=== PATIENT | female | born 1930 | race Caucasian/White ===

== ENCOUNTER → 2016-09-12 | Outpatient (CLI) | payer OTHER ==
[~2016-09-12] MED LIST: BNC20 PO; CLBCRM30 EXT; MULT-614 PO; NAPR1TAB22 PO; OMG3 PO; PRAV20TA PO; SULF-183 PO; TPRSR/25 PO; TRAM-10 PO
[2016-09-12 16:38] LABS: BASO % 0.2 %; BASO ABS # 0.02 K/uL (0-0.2); COMPLETE YES; EOS % 4.5 %; HEMATOCRIT 43.6 % (37-47); IG% 0.3 %; LYMPH % 19.3 %; LYMPH ABS # 1.88 K/uL (1.2-3.4); MEAN CELL VOLUME 91.6 fL (80-100); MEAN CORPUSCULAR HEMOGLOBIN 30.9 pg (25-34); MEAN CORPUSCULAR HGB CONC 33.7 g/dl (32-36); MONO % 8.3 %; NEUT % 67.4 %; PLATELET COUNT 192 K/uL (130-400); RED BLOOD COUNT 4.76 M/uL (4.2-5.4); WHITE BLOOD COUNT 9.72 K/uL (4.8-10.8)
[2016-09-12 17:14] LABS: BLOOD UREA NITROGEN 35 mg/dl (7-18); BUN/CREATININE RATIO 24.9 (10-20); CALCIUM 8.9 mg/dl (8.5-10.1); CARBON DIOXIDE 24 mmol/L (21-32); CHLORIDE 108 mmol/L (98-107); GLUCOSE 95 mg/dl (70-99); POTASSIUM 4.4 mmol/L (3.5-5.1); SODIUM 141 mmol/L (136-145)
== END | disposition home or self-care (01) ==
LOC: C.LAB1850 15:03
PROVIDERS: ATTEND Nurse Practitioner Adult Health
DX: R10.813 Right lower quadrant abdominal tenderness (principal)

== ENCOUNTER → 2016-09-18 | Outpatient (CLI) | payer OTHER ==
--- NOTE | 2016-09-18 14:12 | DIAGNOSTIC IMAGING REPORT ---
ABDOMEN AND PELVIS CT WITH ORAL CONTRAST CT DOSE: 872.28 mGycm HISTORY: R10.819 Abdominal [id number] Abdominal right lower quadrant pain. TECHNIQUE: Multiaxial CT images of the abdomen and pelvis were performed following the use of oral contrast. COMPARISON STUDY: Abdomen and pelvis CT 12/02/2014. FINDINGS: Stable 6 mm nodule within the left lower lobe. This demonstrates near 2 year stability. No pneumoperitoneum. No pneumatosis. 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 These result in significant metallic artifact with near nondiagnostic evaluation of the deep pelvic structures including the bladder and uterus. Severe degenerative disc disease throughout the lower thoracic and lumbar spine. There is a 3 cm hypodense lesion within the right hepatic lobe. This is slightly increased in size in the prior study. This is indeterminate on this noncontrast study. The unenhanced gallbladder, pancreas, and adrenal glands are unremarkable. A few calcified splenic granulomas. Bilateral nephrolithiasis. No hydronephrosis. There are few cortical calcifications within the right kidney. There are 2 stable hyperdense lesions within the upper pole of the left kidney with the largest measuring 1 cm. These are also included characterize but favor hyperdense cysts. No retroperitoneal lymphadenopathy. No bowel wall thickening or obstruction. Normal appendix. Colonic diverticulosis. IMPRESSION: 1. No bowel wall thickening or obstruction. 2. Normal appendix. 3. Colonic diverticulosis. 4. Bilateral nephrolithiasis. No hydronephrosis. 5. Stable 6 mm nodule within the left lower lobe. This demonstrates near 2 year stability. An additional [address] follow up can performed to ensure 2 year stability. 6. Additional findings as described above. Electronically signed by: Gus Elmore M.D. 09/18/2016 2:10 PM Dictated Date/Time: 09/18/2016 1:55 PM
== END | disposition home or self-care (01) ==
LOC: C.CTS 11:17
PROVIDERS: ATTEND Nurse Practitioner Adult Health
DX: R10.813 Right lower quadrant abdominal tenderness (principal); N18.9 Chronic kidney disease, unspecified; K57.30 Diverticulosis of large intestine without perforation or abscess without bleeding; N20.0 Calculus of kidney; R91.1 Solitary pulmonary nodule

== ENCOUNTER → 2017-03-28 | Outpatient (CLI) | payer OTHER ==
[2017-03-28 14:42] LABS: BASO % 0.2 %; BASO ABS # 0.02 K/uL (0-0.2); COMPLETE YES; EOS % 5.1 %; HEMATOCRIT 43.2 % (37-47); IG% 0.3 %; MEAN CELL VOLUME 92.3 fL (80-100); MEAN CORPUSCULAR HEMOGLOBIN 29.7 pg (25-34); MEAN CORPUSCULAR HGB CONC 32.2 g/dl (32-36); MEAN PLATELET VOLUME 9.8 fL (7.4-10.4); MONO % 7.4 %; PLATELET COUNT 212 K/uL (130-400); RED BLOOD COUNT 4.68 M/uL (4.2-5.4); WHITE BLOOD COUNT 9.13 K/uL (4.8-10.8)
[2017-03-28 15:35] LABS: ALT/SGPT 16 U/L (12-78); AST/SGOT 17 U/L (15-37); BLOOD UREA NITROGEN 39 mg/dl (7-18); BUN/CREATININE RATIO 30.2 (10-20); CALCIUM 8.7 mg/dl (8.5-10.1); CARBON DIOXIDE 29 mmol/L (21-32); CHLORIDE 106 mmol/L (98-107); CHOLESTEROL 177 mg/dl (0-200); GLUCOSE 92 mg/dl (70-99); POTASSIUM 4.4 mmol/L (3.5-5.1); SODIUM 140 mmol/L (136-145); TRIGLYCERIDES 186 mg/dl (0-150); VERY LOW DENSITY LIPOPROT CALC 37 mg/dl
[2017-03-28 15:47] LABS: ALB/GLOB RATIO 0.8 (0.9-2); ALKALINE PHOSPHATASE 94 U/L (45-117); CHOLESTEROL/HDL RATIO 4.3; HDL CHOLESTEROL 41 mg/dl; LDL CHOLESTEROL CALCULATED 99 mg/dl
[2017-03-29 07:20] LABS: ESTIMATED AVERAGE GLUCOSE 123 mg/dl; HA1C FLAG Normal (Normal)
--- NOTE | 2017-04-05 14:05 | CODING QUERY MEDICAL NECESSITY ---
CQSUPPORTING DIAGNOSIS NEEDED A supporting diagnosis is required for the test/procedure performed on this patient in order for us to be reimbursed by the patient's insurance. Please provide a supporting diagnosis for the following test/procedure listed below next to the test name along with your signature. *If there is no additional diagnosis for this patient that would support the following test/procedure please document that below next to the test/procedure. Test(s)/Procedure(s) that require a supporting diagnosis: DOS 03/28/17 VITAMIN D TEST Provider Signature: Date: Thank you Kenzie Means Health Information Management Once completed, please kindly fax back to [phone] For questions please call [phone]
== END | disposition home or self-care (01) ==
LOC: C.LAB1850 13:48
PROVIDERS: ATTEND Internal Medicine
DX: N18.9 Chronic kidney disease, unspecified (principal); E78.5 Hyperlipidemia, unspecified; R73.09 Other abnormal glucose

== ENCOUNTER → 2017-04-12 | Outpatient (CLI) | payer OTHER ==
--- NOTE | 2017-04-12 12:32 | DIAGNOSTIC IMAGING REPORT ---
(CHEST) THORAX WITHOUT CLINICAL HISTORY: 86 years-old Female presenting with pulmonary nodule. TECHNIQUE: Multidetector CT imaging of the chest was performed without the use of intravenous contrast. IV contrast: None. A dose lowering technique was used consistent with the principles of ALARA (as low as reasonably achievable). COMPARISON: CT of the abdomen and pelvis from 09/18/2016. CT DOSE (mGy.cm): The estimated cumulative dose is 806.95 mGy.cm. FINDINGS: [employer] topogram: Unremarkable. On soft tissue windows, normal thyroid and thoracic inlet. Lobular lesion in the anterior mediastinum with a density above that of simple fluid. No surrounding infiltration. Apart from this nodule, no evidence of axillary, supraclavicular, or mediastinal lymphadenopathy. Evaluation of the neal is limited due to lack of intravenous contrast. Atherosclerosis of the aorta. Normal heart size. Aortic valve and coronary artery calcification. No pericardial or pleural effusion. Splenic parenchymal calcifications suggest prior granulomatous infection. Few calcified lymph nodes may be present along the para esophageal region versus phleboliths. On lung windows, minimal groundglass opacity in the paramediastinal right upper lobe (series 4 image 73). Minimal reticulation at the lung bases, nonspecific and possibly atelectasis versus postinfectious/postinflammatory change. Solid 5 mm pulmonary nodule at the right lung base is new from prior (series 4 image 185). Solid 3 mm nodule at the left apex (series 4 image 38). Mosaic attenuation in the lingula could suggest small airways disease. Solid subpleural 2 mm nodule in the lingula (series 4 image 138). Solid 8 mm nodule at the left lung base, previously 6 mm (series 4 image 181). Solid 3 mm nodule at the left lung base (series 4 image 187), increased in size. Old calcified granuloma also noted at the left lung base. Airways patent. On bone windows, degenerative changes of the spine. Degenerative changes of the left glenohumeral joint with large loose bodies. IMPRESSION: 1. Multiple bilateral solid pulmonary nodules measuring up to 8 mm. The previously identified solid nodules have slightly increased in size. These are indeterminate. Included in the differential are infectious/inflammatory nodules especially given the presence of subpleural reticulation and minimal focal groundglass opacity in the right upper lobe. Follow-up per Shravan Society 2017 recommendations below to establish stability or resolution. 2. Low-density lesion in the anterior mediastinum not included within the [id number] on prior exam. This appears lower in density than expected for a lymph node. Differential considerations other than a lymph node include a thymic cyst or thymic neoplasm. This can be followed on subsequent exams. Please refer to below summary of Fleischner Society 2017 recommendations for follow-up of incidental CT nodules (H Gilda et al. Guidelines for management of incidental pulmonary nodules detected on CT images: From the Fleischner Society 2017. Radiology 2017; 284: 228-243.) SOLID NODULES Single nodule; size <6 mm * Low risk patients: No routine follow-up * High risk patients: Optional CT at 12 months Single nodule; size 6-8 mm * Low risk patients: CT at 6-12 months, then consider CT at 18-24 months * High risk patients: CT at 6-12 months, then at 18-24 months Single nodule; size >8 mm * Either low or high risk patients: Considered CT at 3 months, PET/CT, or tissue sampling Multiple nodules; size <6 mm * Low risk patients: No routine follow up * High risk patients: Optional CT at 12 months Multiple nodules; size 6-8 mm * Low risk patients: CT at 3-6 months, then consider CT at 18-24 months * High risk patients: CT at 3-6 months, then at 18-24 months Multiple nodules; size >8 mm * Low risk patients: CT at 3-6 months, then consider at 18-24 months * High risk patients: CT at 3-6 months, then at 18-24 months Note: These guidelines apply to incidental nodules. These guidelines did not apply to patients younger than 35 years, immunocompromised patients, or patients with cancer. * Low risk patients: Minimal or absent history of smoking and/or other known risk factors * High risk patients: History of smoking, exposure to other carcinogens, emphysema, fibrosis, upper lobe location, family history of lung cancer, etc. * If a nodule up to 8 mm is partly solid or is ground glass further follow-up is required after 24 months to exclude possible slow growing adenocarcinoma SUBSOLID NODULES Single ground-glass nodule * Nodule size < 6 mm: No routine follow-up * Nodule size > or = 6 mm: CT at 6-12 months to confirm persistence, then CT every 2 years until 5 years Single part-solid nodule * Nodule size < 6 mm: No routine follow-up * Nodules size > or = 6 mm: CT at 3-6 months to confirm persistence. If unchanged and solid component remains < 6 mm, annual CT should be performed for 5 years Multiple nodules * Nodule size < 6 mm: CT at 3-6 months. If stable, consider CT at 2 and 4 years. * Nodules size > or = 6 mm: CT at 3-6 months. Subsequent management based on the most suspicious nodule(s) Electronically signed by: Henry Bernal M.D. 04/12/2017 12:30 PM Dictated Date/Time: 04/12/2017 12:21 PM
== END | disposition home or self-care (01) ==
LOC: C.CTS 11:55
PROVIDERS: ATTEND Internal Medicine
DX: R91.1 Solitary pulmonary nodule (principal); R91.8 Other nonspecific abnormal finding of lung field

== ENCOUNTER → 2017-07-05 | Outpatient (CLI) | payer OTHER ==
[~2017-07-05] MED LIST changes: +CHOL100027 PO; +METO25TA3 PO; +POTA99TA PO; +SERT50TA PO; +TAMS0.4C38 PO
[2017-07-05 16:43] LABS: HEMATOCRIT 35.5 % (37-47); MEAN CELL VOLUME 83.9 fL (80-100); MEAN CORPUSCULAR HEMOGLOBIN 28.4 pg (25-34); MEAN CORPUSCULAR HGB CONC 33.8 g/dl (32-36); MEAN PLATELET VOLUME 10.4 fL (7.4-10.4); PLATELET COUNT 272 K/uL (130-400); RED BLOOD COUNT 4.23 M/uL (4.2-5.4); WHITE BLOOD COUNT 9.23 K/uL (4.8-10.8)
[2017-07-05 17:06] LABS: BASO % 0.1 %; BASO ABS # 0.01 K/uL (0-0.2); COMPLETE YES; IG% 1.1 %; LYMPH % 17.4 %; LYMPH ABS # 1.61 K/uL (1.2-3.4); MONO % 12.7 %; NEUT % 65.7 %
[2017-07-05 18:17] LABS: ALKALINE PHOSPHATASE 90 U/L (45-117); ALT/SGPT 22 U/L (12-78); AST/SGOT 19 U/L (15-37); BLOOD UREA NITROGEN 134 mg/dl (7-18); CALCIUM 8.7 mg/dl (8.5-10.1); CARBON DIOXIDE 14 mmol/L (21-32); CHLORIDE 108 mmol/L (98-107); GLUCOSE 84 mg/dl (70-99); POTASSIUM 5.1 mmol/L (3.5-5.1); SODIUM 135 mmol/L (136-145); THYROID STIMULATING HORMONE 0.754 uIu/ml (0.300-4.500); TOTAL IRON BINDING CAPACITY 220 mcg/dl (250-450)
[2017-07-05 18:24] LABS: BUN/CREATININE RATIO 26.7 (10-20); CREATININE 5.11 mg/dl (0.60-1.20)
[2017-07-05 18:25] LABS: ALB/GLOB RATIO 0.5 (0.9-2)
== END | disposition home or self-care (01) ==
LOC: C.LAB1850 14:33
PROVIDERS: ATTEND Physician Assistant
DX: G47.10 Hypersomnia, unspecified (principal)

== ENCOUNTER 2017-07-06 01:45 | Inpatient (IN) | payer OTHER ==
[~2017-07-06] VITALS: Ht 149.9 cm; Wt 80.5 kg
[2017-07-06] VITALS (21 sets, daily range): BP systolic 75–142; BP diastolic 36–58; PULSE 67–109; TEMP 36.3–36.8; O2SAT 92–97; Ht 149.9 cm; Wt 80.5 kg
[~2017-07-06 01:45] MED LIST changes: -CHOL100027 PO; -METO25TA3 PO; -POTA99TA PO; -SERT50TA PO; -TAMS0.4C38 PO
[2017-07-06] MEDS ORDERED: METO25TA3 PO (03:10)
[2017-07-06] MEDS ORDERED: POTA99TA PO (03:11)
[2017-07-06] MEDS ORDERED: TAMS0.4C38 PO (03:11)
[2017-07-06] MEDS ORDERED: SERT50TA PO (03:11)
[2017-07-06 03:12] LABS: BASO % 0.2 %; BASO ABS # 0.02 K/uL (0-0.2); COMPLETE YES; EOS % 1.8 %; HEMATOCRIT 35.8 % (37-47); IG% 1.2 %; LYMPH % 11.9 %; LYMPH ABS # 1.13 K/uL (1.2-3.4); MEAN CORPUSCULAR HEMOGLOBIN 28.2 pg (25-34); MEAN CORPUSCULAR HGB CONC 33.5 g/dl (32-36); MEAN PLATELET VOLUME 9.7 fL (7.4-10.4); MONO % 7.3 %; NEUT % 77.6 %; PLATELET COUNT 256 K/uL (130-400); RED BLOOD COUNT 4.26 M/uL (4.2-5.4); WHITE BLOOD COUNT 9.48 K/uL (4.8-10.8)
[2017-07-06] MEDS ORDERED: CHOL100027 PO (03:12)
--- NOTE | 2017-07-06 03:20 | EMERGENCY ROOM VISIT NOTE ---
History Report prepared by Whitney: Nuzhat Snow Under the Supervision of: Dr. Martita Villalpando D.O. First contact with patient: 02:08 Chief Complaint: REFERRED BY DOCTOR Stated Complaint: REFERRED BY DOCTOR History of Present Illness The patient is an 87 year old female who presents to the Emergency Room complains of an episode of abnormal labs starting this evening. The patient has had increased drowsiness and weakness since . She states that she went and got lab work done tonight that showed she has abnormal kidney function. She was called at home about the results. Source of History: patient Onset: this evening Position: other (global) Quality: other (global) Timing: other (episode) Associated Symptoms: + weakness Note: The patient complains of drowsiness. Review of Systems See HPI for pertinent positives & negatives. A total of 10 systems reviewed and were otherwise negative. Past Medical & Surgical Medical Problems: (1) Altered mental status (2) ARF (acute renal failure) (3) HTN (hypertension) Surgical Problems: (1) History of hip replacement (2) History of knee replacement Family History Diabetes mellitus Heart disease Hypertension Social History Smoking Status: Former Smoker Alcohol Use: none Drug Use: none Housing Status: lives with family Occupation Status: retired Current/Historical Medications Scheduled Cholecalciferol (Vitamin D 1000 Unit), 1,000 INTER.UNIT PO DAILY Metoprolol Succ (Toprol Xl) (Toprol-Xl), 50 MG PO QAM Metoprolol Succinate (Metoprolol Succinate ER), 25 MG PO QPM Multiple Vitamins W/ Minerals (Centrum Silver Ultra Wome), 1 TAB PO QAM Potassium (Potassium), 99 MG PO DAILY Pravastatin (Pravachol ), 20 MG PO HS Sertraline (Zoloft), 50 MG PO DAILY Tamsulosin Hcl (Flomax), 0.4 MG PO DAILY Tramadol (Ultram), 100 MG PO BID Allergies Coded Allergies: Solifenacin (Verified Allergy, Intermediate, HIVES, 07/06/17) Codeine (Verified Adverse Reaction, Intermediate, DIZZINESS, 07/06/17) Physical Exam Vital Signs Date Time Temp Pulse Resp B/P (MAP) Pulse Ox O2 Delivery O2 Flow Rate FiO2 07/06/17 03:30 93 18 120/76 98 Room Air 07/06/17 01:48 36.3 91 20 107/70 97 Room Air Physical Exam HEENT: Head - normocephalic and atraumatic Pupils are pinpoint. Extraocular eye muscles are intact, and sclera are anicteric. Nose - moist nasal mucosa without discharge. Mouth - moist buccal mucosa. Oropharynx is nonerythematous and there is no tonsillar exudate or edema noted. Neck: Supple; no JVD, nuchal rigidity, cervical lymphadenopathy, or auscultated bruits. Heart: Regular rate and rhythm. There is a normal S1 and S2 with no murmurs, clicks, or gallops appreciated. Lungs: Clear to auscultation bilaterally with no wheezes, rales, or rhonchi. Abdomen: Soft, completely nontender, nondistended, with good bowel sounds. There are no palpable pulsatile masses or hepatosplenomegaly. There is no guarding, rigidity, or rebound noted. Extremities: No evidence of cyanosis, clubbing, or edema. There are easily palpable peripheral pulses. Skin: warm and dry with good turgor and no rashes. Neuro: The patient seems confused with questioning. She will follow commands. Muscle strength is 5/5 in all 4 extremities. Medical Decision & Procedures Laboratory Results 07/06/17 03:00 Red Blood Count 4.26, Mean Corpuscular Volume 84.0, Mean Corpuscular Hemoglobin 28.2, Mean Corpuscular Hemoglobin Concent 33.5, Mean Platelet Volume 9.7, Neutrophils (%) (Auto) 77.6, Lymphocytes (%) (Auto) 11.9, Monocytes (%) (Auto) 7.3, Eosinophils (%) (Auto) 1.8, Basophils (%) (Auto) 0.2, Neutrophils # (Auto) 7.36, Lymphocytes # (Auto) 1.13, Monocytes # (Auto) 0.69, Eosinophils # (Auto) 0.17, Basophils # (Auto) 0.02 07/06/17 03:00 Test 07/06/17 03:00 White Blood Count 9.48 K/uL (4.8-10.8) Red Blood Count 4.26 M/uL (4.2-5.4) Hemoglobin 12.0 g/dL (12.0-16.0) Hematocrit 35.8 % (37-47) Mean Corpuscular Volume 84.0 fL (80-100) Mean Corpuscular Hemoglobin 28.2 pg (25-34) Mean Corpuscular Hemoglobin Concent 33.5 g/dl (32-36) Platelet Count 256 K/uL (130-400) Mean Platelet Volume 9.7 fL (7.4-10.4) Neutrophils (%) (Auto) 77.6 % Lymphocytes (%) (Auto) 11.9 % Monocytes (%) (Auto) 7.3 % Eosinophils (%) (Auto) 1.8 % Basophils (%) (Auto) 0.2 % Neutrophils # (Auto) 7.36 K/uL (1.4-6.5) Lymphocytes # (Auto) 1.13 K/uL (1.2-3.4) Monocytes # (Auto) 0.69 K/uL (0.11-0.59) Eosinophils # (Auto) 0.17 K/uL (0-0.5) Basophils # (Auto) 0.02 K/uL (0-0.2) RDW Standard Deviation 47.5 fL (36.4-46.3) RDW Coefficient of Variation 15.4 % (11.5-14.5) Immature Granulocyte % (Auto) 1.2 % Immature Granulocyte # (Auto) 0.11 K/uL (0.00-0.02) Prothrombin Time 10.8 SECONDS (9.0-12.0) Prothromb Time International Ratio 1.0 (0.9-1.1) Activated Partial Thromboplast Time 31.3 SECONDS (21.0-31.0) Partial Thromboplastin Ratio 1.2 Anion Gap 9.0 mmol/L (3-11) Estimated GFR () 7.8 Estimated GFR (Non- 6.8 BUN/Creatinine Ratio 26.0 (10-20) Calcium Level 8.4 mg/dl (8.5-10.1) Total Bilirubin 0.6 mg/dl (0.2-1) Direct Bilirubin < 0.1 mg/dl (0-0.2) Aspartate Amino Transf (AST/SGOT) 22 U/L (15-37) Alanine Aminotransferase (ALT/SGPT) 20 U/L (12-78) Alkaline Phosphatase 95 U/L (45-117) Total Creatine Kinase 171 U/L (26-192) Creatine Kinase MB 10.4 ng/ml (0.5-3.6) Creatine Kinase MB Ratio 6.1 (0-3.0) Troponin I < 0.015 ng/ml (0-0.045) Total Protein 8.4 gm/dl (6.4-8.2) Albumin 2.8 gm/dl (3.4-5.0) Thyroid Stimulating Hormone (TSH) 0.943 uIu/ml (0.300-4.500) Laboratory results per my review. Procedure 0406: Ordered Ativan Inj 0.5 mg IV. ECG Indication: weakness Rate (beats per minute): 67 Rhythm: normal sinus Findings: no acute ischemic change, other (significant baseline artifact) ED Course 0208: Past medical records reviewed. The patient was evaluated in room B7. A complete history and physical exam was performed. An IV lock was initiated and labs are drones above. The patient was ordered to have a CT scan of the brain because of altered mental status. 0315: Discussed the patient's case with Dr. Farrar. The patient will be evaluated for further management. 0405: The patient could not lie still in CT. Medical Decision The patient is an 87 year old female who presents to the Emergency Room complains of an episode of abnormal labs starting this evening. Differential diagnoses include acute kidney injury, dehydration, acute delirium , intracranial process, CVA. LABS: White count 9.2 Stable H&H BUN 134 Creatinine 5.1 Glucose 84 LFTS normal Normal white count Stable H&H Creatine 5.3 Potassium 6.3 BUN 139 Glucose 99 TSH normal Troponin is negative An 87-year-old female patient who lives with her son. She had routine blood work drawn at her PCP yesterday. The family was contacted this evening that she had elevated creatinine. Around the same time, the son noted that the patient seemed to be increasingly confused and delirious. The patient's creatinine is greater than 5. She is also noted to be hyperkalemic at this time. She did seem significantly confused. I ordered a CT scan of the brain but she was unable to lie flat for this. Medication Reconcilliation Current Medication List: was personally reviewed by me Blood Pressure Screening Patient's blood pressure: Normal blood pressure Will be further monitored by hospitalist. Consults Time Called: [phone] Consulting Physician: Dr. Farrar Returned Call: [phone] Discussed the patient's case with Dr. Farrar. The patient will be evaluated for further management. Impression Primary Impression: Acute renal failure Additional Impressions: Hyperkalemia Delirium Scribe Attestation The scribe's documentation has been prepared under my direction and personally reviewed by me in its entirety. I confirm that the note above accurately reflects all work, treatment, procedures, and medical decision making performed by me. Departure Information Dispostion Being Evaluated By Hospitalist Referrals Pro,Richar Tmaayo M.D. (PCP) Patient Instructions [facility] Problem Qualifiers Primary Impression: Acute renal failure Acute renal failure type: unspecified Qualified Codes: N17.9 - Acute kidney failure, unspecified
[2017-07-06 03:23] LABS: PARTIAL THROMBOPLASTIN RATIO 1.2; PROTHROMBIN TIME (PATIENT) 10.8 SECONDS (9.0-12.0)
[2017-07-06] MEDS ORDERED: POLYETHYLENE (MIRALAX) 17 GM PACK PO PRN (03:45)
[2017-07-06] MEDS ORDERED: ALUMINUM/MAGNESIUM/SIMETH (MAALOX MAX) 30 ML UDC PO PRN (03:45)
[2017-07-06] MEDS ORDERED: ACETAMINOPHEN 325 MG TAB PO PRN (03:45)
[2017-07-06] MEDS ORDERED: MAGNESIUM HYDROXIDE SUSP 30 ML UDC PO PRN (03:45)
[2017-07-06 03:54] LABS: ALKALINE PHOSPHATASE 95 U/L (45-117); ALT/SGPT 20 U/L (12-78); AST/SGOT 22 U/L (15-37); BLOOD UREA NITROGEN 139 mg/dl (7-18); CALCIUM 8.4 mg/dl (8.5-10.1); CARBON DIOXIDE 13 mmol/L (21-32); CHLORIDE 107 mmol/L (98-107); CKMB/CK RATIO 6.1 (0-3.0); CREATININE 5.35 mg/dl (0.60-1.20); GLUCOSE 99 mg/dl (70-99); POTASSIUM 6.3 mmol/L (3.5-5.1); SODIUM 131 mmol/L (136-145); THYROID STIMULATING HORMONE 0.943 uIu/ml (0.300-4.500)
[2017-07-06] MEDS ORDERED: LORAZEPAM 2 MG/ML 1 ML VIAL IV STA (04:06)
--- NOTE | 2017-07-06 04:16 | History and Physical ---
History & Physical Date & Time of Service: Jul 06, 2017 at 03:52 Chief Complaint: Referred By Doctor Primary Care Physician: Richar Campos M.D. History of Present Illness Source: family 87 y/o F Hx HTN, urinary incontinence. The pt has exhibited progressive confusion over the last few days. She was brought to her primary MD by her son. Labs were obtained and a markedly elevated BUN/creat was noted. She was instructed to attend the hospital therefore. She is unable to provide a meaningful history. Her son is present at bedside and denies that she had complained of additional symptoms such as fevers/rigors, n/v/d or dysuria although she is chronically incontinent. Past Medical/Surgical History 1) HTN 2) Urinary incontinence 3) Chronic constipation Family History Diabetes mellitus Heart disease Hypertension Social History Smoking Status: Former Smoker Drug Use: none Occupational Status: retired Multi-Drug Resistant Organisms History of MDRO: No Allergies Coded Allergies: Solifenacin (Verified Allergy, Intermediate, HIVES, 07/06/17) Codeine (Verified Adverse Reaction, Intermediate, DIZZINESS, 07/06/17) Home Medications Scheduled Cholecalciferol (Vitamin D 1000 Unit), 1,000 INTER.UNIT PO DAILY Metoprolol Succ (Toprol Xl) (Toprol-Xl), 50 MG PO QAM Metoprolol Succinate (Metoprolol Succinate ER), 25 MG PO QPM Multiple Vitamins W/ Minerals (Centrum Silver Ultra [place]ome), 1 TAB PO QAM Potassium (Potassium), 99 MG PO DAILY Pravastatin (Pravachol ), 20 MG PO HS Sertraline (Zoloft), 50 MG PO DAILY Tamsulosin Hcl (Flomax), 0.4 MG PO DAILY Tramadol (Ultram), 100 MG PO BID Review of Systems Constitutional: No fever, No chills, No sweats Eyes: No worsening of vision ENT: No hearing loss, No nasal symptoms Respiratory: No cough, No sputum, No wheezing Cardiovascular: No chest pain Abdomen: No pain, No nausea, No vomiting Musculoskeletal: No joint pain Genitourinary - Female: + urinary incontinence, No dysuria Neurologic: + problem reported (Confusion reported) Psychiatric: No depression symptoms Endocrine: No fatigue Hematologic / Lymphatic: No abnormal bleeding/bruising Integumentary: No rash 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), lungs clear Cardiovascular: regular rate, rhythm, no edema, no gallop Abdomen/GI: normal bowel sounds, + pertinent finding (Abdomen is soft ad distended - there was no tenderness to palpation of the suprapubic area) Extremities/Musculoskelatal: normal inspection, no calf tenderness, normal capillary refill Neurologic/Psych: + pertinent finding (Confusion is present - she can follow commands and speak clearly - there are no unilateral focal signs) Skin: normal color, warm/dry, no rash Diagnostics Laboratory Results Results Past 24 Hours Test 07/06/17 02:43 07/06/17 03:00 Range/Units Creatine Kinase MB Ratio 0-3.0 White Blood Count 9.48 4.8-10.8 K/uL Red Blood Count 4.26 4.2-5.4 M/uL Hemoglobin 12.0 12.0-16.0 g/dL Hematocrit 35.8 37-47 % Mean Corpuscular Volume 84.0 80-100 fL Mean Corpuscular Hemoglobin 28.2 25-34 pg Mean Corpuscular Hemoglobin Concent 33.5 32-36 g/dl Platelet Count 256 130-400 K/uL Mean Platelet Volume 9.7 7.4-10.4 fL Neutrophils (%) (Auto) 77.6 % Lymphocytes (%) (Auto) 11.9 % Monocytes (%) (Auto) 7.3 % Eosinophils (%) (Auto) 1.8 % Basophils (%) (Auto) 0.2 % Neutrophils # (Auto) 7.36 1.4-6.5 K/uL Lymphocytes # (Auto) 1.13 1.2-3.4 K/uL Monocytes # (Auto) 0.69 0.11-0.59 K/uL Eosinophils # (Auto) 0.17 0-0.5 K/uL Basophils # (Auto) 0.02 0-0.2 K/uL RDW Standard Deviation 47.5 36.4-46.3 fL RDW Coefficient of Variation 15.4 11.5-14.5 % Immature Granulocyte % (Auto) 1.2 % Immature Granulocyte # (Auto) 0.11 0.00-0.02 K/uL Prothrombin Time 10.8 9.0-12.0 SECONDS Prothromb Time International Ratio 1.0 0.9-1.1 Activated Partial Thromboplast Time 31.3 21.0-31.0 SECONDS Partial Thromboplastin Ratio 1.2 Impression Assessment and Plan 87 y/o F Hx HTN, urinary incontinence. The pt has exhibited progressive confusion over the last few days. She was brought to her primary MD by her son. Labs were obtained and a markedly elevated BUN/creat was noted. She was instructed to attend the hospital therefore. She is unable to provide a meaningful history. Her son is present at bedside and denies that she had complained of additional symptoms such as fevers/rigors, n/v/d or dysuria although she is chronically incontinent. 1) ARF - IVF provided - will image kidneys to evaluate for hydro/obstruction. Staff has been unable to pass a catheter at present and we may need to consult urology for this purpose. Urine lytes will be obtained, BMP will be trended. 2) Hyperkalemia - we will provide Kayexalate and IVF presently - she does not have related EKG changes - she will be assigned to telemetry. 3) HTN - cont Metoprolol. 4) Incontinence - cont Flomax. Full code - Heparin prophylaxis Total time for this admit including review of labs, meds, imaging, discussion with pt, son, ER attending 40 min Level of Care Telemetry Resuscitation Status FULL RESUSCITATION VTE Prophylaxis VTE Risk Assessment Done? Y/N: Yes Risk Level: Moderate Given or contraindicated: Unfractionated heparin SQ
[2017-07-06] MEDS ORDERED: SODIUM POLYST. SULF SUSP 15G/60ML PO STA (04:20)
[2017-07-06 04:32] LABS: URINE APPEARANCE TURBID (CLEAR); URINE BILIRUBIN NEG (NEG); URINE COLOR YELLOW; URINE EPITHELIAL CELL AUTO >30 /lpf (0-5); URINE NITRITE NEG (NEG); URINE SPECIFIC GRAVITY 1.015 (1.000-1.030); UROBILINOGEN NEG (NEG)
[2017-07-06 04:46] LABS: MANUAL MICROSCOPIC REQUIRED? NO; REVIEW REQ? YES
[2017-07-06] MEDS: SODIUM CHLORIDE 0.9% 1000ML 1,000 ML IV SCH ×3 (05:14→23:10)
[2017-07-06] MEDS ORDERED: INFLUENZA ADMINISTRATION CHARGE ONE (06:15)
[2017-07-06] MEDS ORDERED: PNEUMOCOCCAL POLYSACCHARIDES 25 MCG/0.5 ML VIAL/SYR IM. ONE (06:15)
[2017-07-06] MEDS ORDERED: PNEUMOCOCCAL ADMINISTRATION CHARGE ONE (06:15)
[2017-07-06] MEDS ORDERED: INFLUENZA VACCINE HIGH DOSE 65+ 0.5 ML SYR IM. ONE (06:15)
--- NOTE | 2017-07-06 07:10 | DIAGNOSTIC IMAGING REPORT ---
ULTRASOUND KIDNEYS AND BLADDER CLINICAL HISTORY: Change in mental status. COMPARISON STUDY: Abdominal CT dated 09/18/2016. TECHNIQUE: Real-time, grayscale, and color flow sonography of the kidneys and bladder is performed. Images are reviewed in the transverse and longitudinal planes. FINDINGS: Kidneys: The kidneys are atrophic and demonstrate increased echotexture consistent with medical renal disease. The right kidney measures 8.3 x 4.7 x 3.3 cm and the left kidney measures 9.5 x 4.6 x 4.1 cm. There is no hydronephrosis. No shadowing renal calculi are identified. Scattered renal cysts measure up to 1.7 cm. There is no sonographic evidence of contour deforming renal mass lesion. Foci of cortical scarring are observed. No perinephric fluid is identified. Bladder: The bladder is decompressed and could not be evaluated. Upper abdomen: A 3.0 cm echogenic lesion is identified in the liver. IMPRESSION: 1. The kidneys are atrophic and echogenic consistent with medical renal disease. 2. There is no hydronephrosis. 3. The bladder was decompressed and could not be evaluated. 4. A 3.0 cm echogenic lesion is identified in the liver. Although indeterminant, this was seen on prior abdominal CT scans and likely represents a hemangioma. Electronically signed by: Uvaldo Reyes M.D. 07/06/2017 7:09 AM Dictated Date/Time: 07/06/2017 7:06 AM
[2017-07-06] MEDS: TAMSULOSIN HCL 0.4 MG CAP PO SCH (08:17)
[2017-07-06] MEDS: HEPARIN SOD 5000 UNIT/0.5 ML CARP SQ SCH ×3 (08:17→23:09)
[2017-07-06] MEDS: TRAMADOL HCL 50 MG TAB PO SCH ×2 (08:18→20:28)
[2017-07-06] MEDS: METOPROLOL SUCC 25MG EXT REL TAB PO SCH ×2 (08:18→20:28)
[2017-07-06] MEDS: SERTRALINE HCL 50 MG TAB PO SCH (08:18)
[2017-07-06 08:38] LABS: BUN/CREATININE RATIO 27.1 (10-20); CALCIUM 8.6 mg/dl (8.5-10.1); CREATININE 5.47 mg/dl (0.60-1.20); POTASSIUM 5.8 mmol/L (3.5-5.1)
--- NOTE | 2017-07-06 10:57 | Surgery Consultation ---
Consultation Date of Service Jul 06, 2017. (Jazzy Cline, JONAS) Chief Complaint ARF, need TDC (Jazzy Cline, JONAS) History of Present Illness The patient is a 87 year old female with multiple medical problems, admitted d/ t confusion and ARF, seen today in consultation for placement of TDC recommended by nephrology. Pt unable to provide meaningful hx, so most HPI obtained from chart. Pt apparently saw her PCP d/t confusion and had labwork done which demonstrated Cr over 5.0. Pt denies pain or SOB presently. Pt noted to be hyperkalemic and mildly hyponatremic as well. (Jazzy Cline, JONAS) Vitals Vital Signs Past 12 Hours Date Time Temp Pulse Resp B/P (MAP) Pulse Ox O2 Delivery O2 Flow Rate FiO2 07/06/17 08:00 36.3 74 18 108/53 (71) 96 Room Air 07/06/17 08:00 96 Room Air 07/06/17 05:00 36.3 67 19 105/47 96 Room Air 07/06/17 04:29 36.3 68 18 128/48 98 07/06/17 03:56 36.3 93 18 120/76 98 07/06/17 03:30 93 18 120/76 98 Room Air 07/06/17 01:48 36.3 91 20 107/70 97 Room Air (Jazzy Cline, JONAS) Allergies Coded Allergies: Solifenacin (Verified Allergy, Intermediate, HIVES, 07/06/17) Codeine (Verified Adverse Reaction, Intermediate, DIZZINESS, 07/06/17) Home Medications Scheduled Cholecalciferol (Vitamin D 1000 Unit), 1,000 INTER.UNIT PO DAILY Metoprolol Succ (Toprol Xl) (Toprol-Xl), 50 MG PO QAM Metoprolol Succinate (Metoprolol Succinate ER), 25 MG PO QPM Multiple Vitamins W/ Minerals (Centrum Silver Ultra [place]), 1 TAB PO QAM Potassium (Potassium), 99 MG PO DAILY Pravastatin (Pravachol ), 20 MG PO HS Sertraline (Zoloft), 50 MG PO DAILY Tamsulosin Hcl (Flomax), 0.4 MG PO DAILY Tramadol (Ultram), 100 MG PO BID Problem List Medical Problems: (1) Altered mental status (2) ARF (acute renal failure) (3) HTN (hypertension) Surgical Problems: (1) History of hip replacement (2) History of knee replacement (Jazzy Cline PA-C) Surgical / Medical History Hx Cardiac Surgery: No Hx Abdominal Surgery: Yes (2 C-SECTIONS) Hx Cancer Surgery: No Hx Thoracic Surgery: No Hx Orthopedic: Yes (MICHELLE ROBINSON, LEFT HIP REPLACEMENT,MICHELLE CARPAL TUNNEL, RT KNEE SURGERY) Hx Urinary Tract Surgery: Yes (CYSTO) Past Medical/Surgical History: Hypertension, Kidney Disease (Jazzy Cline PA-C) Family History Diabetes mellitus Heart disease Hypertension (Jazzy Cline PA-C) Diabetes mellitus Heart disease Hypertension (Gareth Horne M.D.) Social History Smoking Status: Former Smoker Hx Tobacco Use In Past Year?: No Hx Alcohol Use - Type & Amnt: No Hx Substance Use -Type & Amnt: No (Jazzy Cline PA-C) Review of Systems Additional Comments: Unable to obtain d/t mental status (Jazzy Cline PA-C) Physical Exam Constitutional: General Apperance: well-nourished, well-developed, obese Level of Distress: NAD, acutely ill, chronically ill Psychiatric: Mental Status: active & alert, confused, anxious Orientation: to person, not oriented to time (knows it is june), not oriented to place (knows she is in hospital, but can't state which town) Memory: recent memory abnormal, remote memory abnormal Head: normocephalic, atraumatic ENMT: normal ENT inspection, hearing grossly normal Neck: supple, trachea midline Lungs: Respiratory effort: no dyspnea Auscultation: no rales/crackles, no rhonchi Cardiovascular: Apical Impulse: not displaced Heart Auscultation: RRR, no rubs, no gallops Peripheral Pulses: Pulses: full and equal, in all extremities except if noted Bruits: none appreciated Carotid Pulse: normal on the left, normal on the right Brachial Pulses: normal on the left, normal on the right Radial Pulse: normal on the left, normal on the right Femoral Pulse: normal on the left, normal on the right Posterior Tibialis Pulse: decreased on the left, decreased on the right Dorsalis Pedis Pulse: decreased on the left, decreased on the right Abdomen: Bowel Sounds: normal Inspection & Palpation: soft, non-distended, no tenderness, guarding & rebound Musculoskeletal: normal strength (5/5 throughout), normal tone Extremities: Upper Right: no cyanosis, no edema, no varicosities Upper Left: no cyanosis, no edema, no varicosities Lower Right: no cyanosis, no edema, no varicosities Lower Left: no cyanosis, no edema, no varicosities Neurologic: Cranial Nerves: grossly intact (Jazzy Cline, PA-C) Assessment and Plan ASSESSMENT and PLAN: ARF Hyperkalemia D/t hyperkalemia, recommend temporary HD catheter insertion with more permanent TDC next week. Discussed with crew team member and consult placed for temporary line insertion today. Will plan on TDC insertion early next week. (Jazzy Cline, PA-C) Patient was seen, examined, and chart reviewed. Agree with exam and treatment plan of the Vascular PA. (Gareth Horne M.D.)
[2017-07-06] MEDS ORDERED: MIDAZOLAM HCL 1 MG/ML 2ML VIAL ONE (10:59)
[2017-07-06] MEDS ORDERED: NURSING VERBAL MED ORDER ONE (12:00)
--- NOTE | 2017-07-06 12:07 | Hospitalist Progress Note ---
Hospitalist Progress Note Date of Service Jul 06, 2017. Subjective Pt evaluation today including: conversation w/ patient, physical exam, lab review, review of studies, conversation w/ financial operations consultant (Dr. Scott ), review of inpatient medication list Voiding: banda catheter in place (little concentrated UO ) Reassessed patient this AM. Patient awake/alert in bed. Oriented to person only. ROS cannot be completed secondary to mental status. Dr. Shankar in to see patient- going to speak w/ son about dialysis- placed consult for vascular surgery. Ordered further workup for ARF. Medications Current Inpatient Medications Medications (Trade) Dose Ordered Sig/Niraj Route Start Time Stop Time Status Last Admin Dose Admin Metoprolol Succinate (Toprol Xl Tab) 50 mg QAM PO 07/06/17 09:00 08/05/17 08:59 07/06/17 08:18 50 MG Metoprolol Succinate (Toprol Xl Tab) 25 mg QPM PO 07/06/17 21:00 08/05/17 20:59 Pravastatin Sodium (Pravachol Tab) 20 mg HS PO 07/06/17 21:00 08/05/17 20:59 Sertraline HCl (Zoloft Tab) 50 mg DAILY PO 07/06/17 09:00 08/05/17 08:59 07/06/17 08:18 50 MG Tamsulosin HCl (Flomax Cap) 0.4 mg DAILY PO 07/06/17 09:00 18 08:59 07/06/17 08:17 0.4 MG Tramadol HCl (Ultram Tab) 100 mg BID PO 07/06/17 09:00 08/05/17 08:59 07/06/17 08:18 100 MG Sodium Chloride 1,000 ml @ 100 mls/hr Q10H IV 07/06/17 03:45 08/05/17 03:44 07/06/17 05:14 100 MLS/HR Heparin Sodium (Porcine) (Heparin Sq 5000 Unit/0.5ml) 5,000 unit Q8H SQ 07/06/17 08:00 08/05/17 07:59 07/06/17 08:17 5,000 UNIT Acetaminophen (Tylenol Tab) 650 mg Q4H PRN PO 07/06/17 03:45 08/05/17 03:44 Al Hydrox/Mg Hydrox/Simethicone (Maalox Max Susp) 15 ml Q4H PRN PO 07/06/17 03:45 08/05/17 03:44 Magnesium Hydroxide (Milk Of Magnesia Susp) 30 ml Q6H PRN PO 07/06/17 03:45 08/05/17 03:44 Polyethylene (Miralax Powder Packet) 17 gm DAILY PRN PO 07/06/17 03:45 08/05/17 03:44 Ondansetron HCl (Zofran Inj) 4 mg Q6H PRN IV 07/06/17 03:45 08/05/17 03:44 Objective Vital Signs Date Time Temp Pulse Resp B/P (MAP) Pulse Ox O2 Delivery O2 Flow Rate FiO2 07/06/17 08:00 36.3 74 18 108/53 (71) 96 Room Air 07/06/17 08:00 96 Room Air 07/06/17 05:00 36.3 67 19 105/47 96 Room Air 07/06/17 04:29 36.3 68 18 128/48 98 07/06/17 03:56 36.3 93 18 120/76 98 07/06/17 03:30 93 18 120/76 98 Room Air 07/06/17 01:48 36.3 91 20 107/70 97 Room Air Physical Exam General Appearance: no apparent distress Eyes: PERRL ENT: hearing grossly normal Neck: supple Respiratory/Chest: lungs clear, no respiratory distress, no accessory muscle use Cardiovascular: regular rate, rhythm Abdomen: normal bowel sounds, non tender, soft Extremities: no pedal edema, no calf tenderness Neurologic/Psychiatric: alert, + disoriented, + pertinent finding (pleasantly confused ) Skin: normal color, warm/dry, no rash Laboratory Results Last 24 Hours Test 07/06/17 03:00 07/06/17 04:15 07/06/17 07:55 07/06/17 09:59 White Blood Count 9.48 K/uL Red Blood Count 4.26 M/uL Hemoglobin 12.0 g/dL Hematocrit 35.8 % Mean Corpuscular Volume 84.0 fL Mean Corpuscular Hemoglobin 28.2 pg Mean Corpuscular Hemoglobin Concent 33.5 g/dl Platelet Count 256 K/uL Mean Platelet Volume 9.7 fL Neutrophils (%) (Auto) 77.6 % Lymphocytes (%) (Auto) 11.9 % Monocytes (%) (Auto) 7.3 % Eosinophils (%) (Auto) 1.8 % Basophils (%) (Auto) 0.2 % Neutrophils # (Auto) 7.36 K/uL Lymphocytes # (Auto) 1.13 K/uL Monocytes # (Auto) 0.69 K/uL Eosinophils # (Auto) 0.17 K/uL Basophils # (Auto) 0.02 K/uL RDW Standard Deviation 47.5 fL RDW Coefficient of Variation 15.4 % Immature Granulocyte % (Auto) 1.2 % Immature Granulocyte # (Auto) 0.11 K/uL Erythrocyte Sedimentation Rate 90 mm/hr Prothrombin Time 10.8 SECONDS Prothromb Time International Ratio 1.0 Activated Partial Thromboplast Time 31.3 SECONDS Partial Thromboplastin Ratio 1.2 Sodium Level 131 mmol/L 134 mmol/L Potassium Level 6.3 mmol/L 5.8 mmol/L Chloride Level 107 mmol/L 107 mmol/L Carbon Dioxide Level 13 mmol/L 12 mmol/L Anion Gap 9.0 mmol/L 15.0 mmol/L Blood Urea Nitrogen 139 mg/dl 145 mg/dl Creatinine 5.35 mg/dl 5.47 mg/dl Estimated GFR () 7.8 7.6 Estimated GFR (Non- 6.8 6.6 BUN/Creatinine Ratio 26.0 27.1 Random Glucose 99 mg/dl 92 mg/dl Calcium Level 8.4 mg/dl 8.6 mg/dl Total Bilirubin 0.6 mg/dl Direct Bilirubin < 0.1 mg/dl Aspartate Amino Transf (AST/SGOT) 22 U/L Alanine Aminotransferase (ALT/SGPT) 20 U/L Alkaline Phosphatase 95 U/L Total Creatine Kinase 171 U/L Creatine Kinase MB 10.4 ng/ml Creatine Kinase MB Ratio 6.1 Troponin I < 0.015 ng/ml Total Protein 8.4 gm/dl Albumin 2.8 gm/dl Thyroid Stimulating Hormone (TSH) 0.943 uIu/ml Urine Color YELLOW Urine Appearance TURBID Urine pH 5.0 Urine Specific [place] 1.015 Urine Protein 2+ Urine Glucose (UA) NEG Urine Ketones NEG Urine Occult Blood 3+ Urine Nitrite NEG Urine Bilirubin NEG Urine Urobilinogen NEG Urine Leukocyte Esterase LARGE Urine WBC (Auto) >30 /hpf Urine RBC (Auto) >30 /hpf Urine Hyaline Casts (Auto) 1-5 /lpf Urine Epithelial Cells (Auto) >30 /lpf Urine Bacteria (Auto) 4+ Urine Pathogenic Casts /lpf Urine Yeast (Auto) Est Creatinine Clear Calc Drug Dose 6.8 ml/min Test 07/06/17 10:37 Assessment and Plan 87 y/o F Hx HTN, urinary incontinence. The pt has exhibited progressive confusion over the last few days. She was brought to her primary MD by her son. Labs were obtained and a markedly elevated BUN/creat was noted. She was instructed to attend the hospital therefore. She is unable to provide a meaningful history. Her son is present at bedside and denies that she had complained of additional symptoms such as fevers/rigors, n/v/d or dysuria although she is chronically incontinent. ARF, unknown etiology, altered mental status: - IV NSS @ 100 ml/hr - Renal US- no hydro/obstruction - BCx and UCx pending - Follow PRP - Nephrology consulted, appreciate recommendations -- Planning for dialysis this afternoon- would recommend/prefer following PRP for 24 hours before intervention - Vascular surgery consulted- planning for temporary catheter placement today for HD per nephrology request Hyperkalemia secondary to ARF: - Admitted to tele for cardiac monitoring - Kayexalate 15 gm x1 dose- K improved from 6.3 to 5.8- follow PRP - No EKG changes HTN- STABLE: Metoprolol 25 mg HS and 50 mg QAM w/ hold parameters HLD: Pravastatin 20 mg HS Incontinence: Continue Flomax 0.4 mg HS DVT prophylaxis: Heparin SQ TID Code Status: LEVEL I, FULL Dispo: Discharge uncertain at this time
--- NOTE | 2017-07-06 12:16 | Nephrology Consultation ---
Nephrology Consultation Date & Providers Date of Consultation: Jul 06, 2017. Primary Care Provider: Richar Campos M.D. Referring Provider: Reason for Consultation Evaluation management for acute kidney injury, oliguria, significant electrolyte abnormality. History of Present Illness Jane is a 87-year-old female with past medical history significant for hypertension and stage 3 chronic kidney disease admitted to the hospital with acute kidney injury, uremia and significant electrolyte abnormality. Nephrology consult was requested for further management acute kidney injury and electrolyte abnormality. Electronic medical records including labs and imaging are reviewed in detail during patient's visit. History was mainly taken from discussion with other provider, medical record review and discussion with her son over telephone as patient was a poor historian. Jane was overall declining in her health and has been having poor p.o. intake over last few weeks which worsened over last 1 week. At baseline she has urinary incontinence. She was overall not feeling at her baseline and her son took her to see her primary care physician yesterday. Lab at primary care physician's office showed acute kidney injury and patient was advised to come to the hospital for further evaluation. On admission her creatinine was 5.8 potassium was 6.5 and bicarbonate was 13. She had Lynn catheter placed on admission but over last few hours her urine output has been less than 100 mL. She herself denied any shortness of breath or chest pain. She was given Kayexalate, insulin D50 and potassium came down to 5.8 bicarbonate still low at 12. She has been getting IV normal saline at 100 mL/hour. Urinalysis was positive for 2+ proteinuria, hematuria, pyuria and bacteriuria. Renal ultrasound was negative for postrenal obstruction, otherwise relatively normal size kidney with multiple simple cyst bilateral. At home she has been taking Aleve and naproxen regularly as per her son. She was also recently started on a new antihypertensive medication however of son could not provide the name, But medication shown record only shows metoprolol. She was also on potassium supplement . Has stage 3 chronic kidney disease baseline creatinine has been around 1.3-1.4, unclear etiology for chronic kidney disease, could be secondary to microvascular disease and age-related nephron loss. Allergies Coded Allergies: Solifenacin (Verified Allergy, Intermediate, HIVES, 07/06/17) Codeine (Verified Adverse Reaction, Intermediate, DIZZINESS, 12/8/17) Inpatient Medications Current Inpatient Medications Medications (Trade) Dose Ordered Sig/Niraj Route Start Time Stop Time Status Last Admin Dose Admin Metoprolol Succinate (Toprol Xl Tab) 50 mg QAM PO 07/06/17 09:00 08/05/17 08:59 07/06/17 08:18 50 MG Metoprolol Succinate (Toprol Xl Tab) 25 mg QPM PO 07/06/17 21:00 08/05/17 20:59 Pravastatin Sodium (Pravachol Tab) 20 mg HS PO 07/06/17 21:00 08/05/17 20:59 Sertraline HCl (Zoloft Tab) 50 mg DAILY PO 07/06/17 09:00 08/05/17 08:59 07/06/17 08:18 50 MG Tamsulosin HCl (Flomax Cap) 0.4 mg DAILY PO 07/06/17 09:00 08/05/17 08:59 07/06/17 08:17 0.4 MG Tramadol HCl (Ultram Tab) 100 mg BID PO 07/06/17 09:00 08/05/17 08:59 07/06/17 08:18 100 MG Sodium Chloride 1,000 ml @ 100 mls/hr Q10H IV 07/06/17 03:45 08/05/17 03:44 07/06/17 05:14 100 MLS/HR Heparin Sodium (Porcine) (Heparin Sq 5000 Unit/0.5ml) 5,000 unit Q8H SQ 07/06/17 08:00 08/05/17 07:59 07/06/17 08:17 5,000 UNIT Acetaminophen (Tylenol Tab) 650 mg Q4H PRN PO 07/06/17 03:45 08/05/17 03:44 Al Hydrox/Mg Hydrox/Simethicone (Maalox Max Susp) 15 ml Q4H PRN PO 07/06/17 03:45 08/05/17 03:44 Magnesium Hydroxide (Milk Of Magnesia Susp) 30 ml Q6H PRN PO 07/06/17 03:45 08/05/17 03:44 Polyethylene (Miralax Powder Packet) 17 gm DAILY PRN PO 07/06/17 03:45 08/05/17 03:44 Ondansetron HCl (Zofran Inj) 4 mg Q6H PRN IV 07/06/17 03:45 08/05/17 03:44 Family History Diabetes mellitus Heart disease Hypertension Social History Smoking Status: Former Smoker Drug Use: none Occupation: retired Review of Systems Detail review of system was not possible. Physical Exam Date Time Temp Pulse Resp B/P (MAP) Pulse Ox O2 Delivery O2 Flow Rate FiO2 07/06/17 08:00 36.3 74 18 108/53 (71) 96 Room Air 07/06/17 08:00 96 Room Air 07/06/17 05:00 36.3 67 19 105/47 96 Room Air 07/06/17 04:29 36.3 68 18 128/48 98 07/06/17 03:56 36.3 93 18 120/76 98 07/06/17 03:30 93 18 120/76 98 Room Air 07/06/17 01:48 36.3 91 20 107/70 97 Room Air GENERAL: elderly female, awake, alert but confused, ill-appearing, not in any distress. HEENT: Atraumatic, normocephalic. NECK: Supple, no JVD, no carotid bruit appreciated. ENT: No sinus tenderness MOUTH and THROAT: dry oral mucosa, no oral ulcer or pharyngeal erythema RESPIRATORY: clear to auscultation bilaterally, no wheezes or rales. CARDIOVASCULAR: S1, S2 normal, rate rhythm regular. ABDOMEN: Soft, nontender, positive bowel sound. MUSCULOSKELETAL: No CVA tenderness. No joint swelling, erythema or tenderness. Normal range of motion. SKIN: No skin rash EXTREMITY: No lower extremity edema NEURO: No gross focal neurological deficit, speech fluent. PSYCHIATRY: Normal mood but confused Laboratory Results Last 24 Hours Test 07/06/17 03:00 07/06/17 04:15 07/06/17 07:55 07/06/17 09:59 White Blood Count 9.48 K/uL Red Blood Count 4.26 M/uL Hemoglobin 12.0 g/dL Hematocrit 35.8 % Mean Corpuscular Volume 84.0 fL Mean Corpuscular Hemoglobin 28.2 pg Mean Corpuscular Hemoglobin Concent 33.5 g/dl Platelet Count 256 K/uL Mean Platelet Volume 9.7 fL Neutrophils (%) (Auto) 77.6 % Lymphocytes (%) (Auto) 11.9 % Monocytes (%) (Auto) 7.3 % Eosinophils (%) (Auto) 1.8 % Basophils (%) (Auto) 0.2 % Neutrophils # (Auto) 7.36 K/uL Lymphocytes # (Auto) 1.13 K/uL Monocytes # (Auto) 0.69 K/uL Eosinophils # (Auto) 0.17 K/uL Basophils # (Auto) 0.02 K/uL RDW Standard Deviation 47.5 fL RDW Coefficient of Variation 15.4 % Immature Granulocyte % (Auto) 1.2 % Immature Granulocyte # (Auto) 0.11 K/uL Erythrocyte Sedimentation Rate 90 mm/hr Prothrombin Time 10.8 SECONDS Prothromb Time International Ratio 1.0 Activated Partial Thromboplast Time 31.3 SECONDS Partial Thromboplastin Ratio 1.2 Sodium Level 131 mmol/L 134 mmol/L Potassium Level 6.3 mmol/L 5.8 mmol/L Chloride Level 107 mmol/L 107 mmol/L Carbon Dioxide Level 13 mmol/L 12 mmol/L Anion Gap 9.0 mmol/L 15.0 mmol/L Blood Urea Nitrogen 139 mg/dl 145 mg/dl Creatinine 5.35 mg/dl 5.47 mg/dl Estimated GFR () 7.8 7.6 Estimated GFR (Non- 6.8 6.6 BUN/Creatinine Ratio 26.0 27.1 Random Glucose 99 mg/dl 92 mg/dl Calcium Level 8.4 mg/dl 8.6 mg/dl Total Bilirubin 0.6 mg/dl Direct Bilirubin < 0.1 mg/dl Aspartate Amino Transf (AST/SGOT) 22 U/L Alanine Aminotransferase (ALT/SGPT) 20 U/L Alkaline Phosphatase 95 U/L Total Creatine Kinase 171 U/L Creatine Kinase MB 10.4 ng/ml Creatine Kinase MB Ratio 6.1 Troponin I < 0.015 ng/ml Total Protein 8.4 gm/dl Albumin 2.8 gm/dl Thyroid Stimulating Hormone (TSH) 0.943 uIu/ml Urine Color YELLOW Urine Appearance TURBID Urine pH 5.0 Urine Specific [place] 1.015 Urine Protein 2+ Urine Glucose (UA) NEG Urine Ketones NEG Urine Occult Blood 3+ Urine Nitrite NEG Urine Bilirubin NEG Urine Urobilinogen NEG Urine Leukocyte Esterase LARGE Urine WBC (Auto) >30 /hpf Urine RBC (Auto) >30 /hpf Urine Hyaline Casts (Auto) 1-5 /lpf Urine Epithelial Cells (Auto) >30 /lpf Urine Bacteria (Auto) 4+ Urine Pathogenic Casts /lpf Urine Yeast (Auto) Est Creatinine Clear Calc Drug Dose 6.8 ml/min Test 07/06/17 10:37 Impression (1) Acute renal failure (2) Delirium (3) Hyperkalemia (4) Metabolic acidosis (5) Oliguria (6) HTN (hypertension) (7) Proteinuria (8) Hematuria Tammi is a 87-year-old female with past medical history of hypertension and stage 3 chronic kidney disease admitted to the hospital with change in mental status, overall declining health, poor p.o. intake over last few weeks and found to have acute kidney injury and significant electrolyte abnormality. On admission creatinine was 5.8 with her baseline creatinine 1.3-1.4. Creatinine declined further to 6.2, electrolyte abnormality including hyperkalemia and metabolic acidosis has been worsening. She has been on IV fluid since admission however urine output remained low. Urinalysis showing 2+ proteinuria and microscopic hematuria. Renal ultrasound unremarkable for postrenal obstruction. Vital sign has been stable. Acute kidney injury could be secondary to hemodynamically mediated ATN with poor p.o. intake and taking NSAID regularly, however cannot exclude possibility for acute glomerular and nephritis at this point including anti-GBM or ANCA vasculitis considering proteinuria and hematuria on urinalysis. Recommendations --Discussed in detail with her son Darryl over telephone and explained patient' s current clinical status. As renal function continues to worsen with critical electrolyte abnormality, remain oliguric and clinically may have some uremic symptoms, it is reasonable to start on dialysis to correct electrolyte abnormality. Explained the details about dialysis procedure and risk associated with it specially considering her advanced age, she may not tolerate dialysis very well. Tried to discuss with the patient but patient was not able to make any decision. After discussion over telephone her son gave permission to have dialysis catheter and start her on emergency dialysis --discussed with Dr. Horne about dialysis catheter, considering hyperkalemia Dr. Horne suggested temporary catheter now and by Sunday if she continues to need dialysis she will need to have a tunnel catheter --will minimize UF and avoid hypotension, plan for 3 hours dialysis this afternoon --order serological workup --avoid hypotension --avoid nephrotoxic medications Thank you for allowing me to participate in your patient's care. It was a pleasure to see Tammi
[2017-07-06] MEDS ORDERED: HALOPERIDOL LACTATE 5 MG/ML 1 ML VIAL IV ONE (13:15)
[2017-07-06 13:17] LABS: BUN/CREATININE RATIO 23.3 (10-20); CREATININE 2.14 mg/dl (0.60-1.20); POTASSIUM 3.2 mmol/L (3.5-5.1)
[2017-07-06 13:19] LABS: CALCIUM 7.3 mg/dl (8.5-10.1)
[2017-07-06 13:32] LABS: HEPATITIS B AB NEG
[2017-07-06 13:40] LABS: CREATININE RANDOM URINE 95.2 mg/dl
[2017-07-06 17:01] LABS: BUN/CREATININE RATIO 25.5 (10-20); CALCIUM 7.2 mg/dl (8.5-10.1); CREATININE 3.26 mg/dl (0.60-1.20); POTASSIUM 3.6 mmol/L (3.5-5.1)
[2017-07-06] MEDS ORDERED: LEVOFLOXACIN / D5W 750 MG in PREMIXED IN D5W 150 ML IV STA (17:11)
[2017-07-06] MEDS ORDERED: LEVOFLOXACIN CONSULT ACTIVE PRN (17:15)
[2017-07-06] MEDS: PRAVASTATIN SOD 20 MG TAB PO SCH (20:28)
[2017-07-07] VITALS (25 sets, daily range): BP systolic 111–198; BP diastolic 62–103; PULSE 65–95; TEMP 36.3–36.7; O2SAT 92–96
[2017-07-07 07:20] LABS: CALCIUM 6.8 mg/dl (8.5-10.1); CREATININE 3.62 mg/dl (0.60-1.20); MAGNESIUM 2.1 mg/dl (1.8-2.4); POTASSIUM 3.9 mmol/L (3.5-5.1)
[2017-07-07] MEDS: METOPROLOL SUCC 25MG EXT REL TAB PO SCH ×2 (07:46→21:21)
[2017-07-07] MEDS: TAMSULOSIN HCL 0.4 MG CAP PO SCH (07:47)
[2017-07-07] MEDS: SERTRALINE HCL 50 MG TAB PO SCH (07:48)
[2017-07-07] MEDS: TRAMADOL HCL 50 MG TAB PO SCH ×2 (07:51→21:22)
[2017-07-07] MEDS: HEPARIN SOD 5000 UNIT/0.5 ML CARP SQ SCH ×3 (07:59→23:39)
[2017-07-07] MEDS: ONDANSETRON INJ 2 MG/ML 2 ML VIAL IV PRN (09:35)
--- NOTE | 2017-07-07 10:09 | Progress Note ---
Progress Note Date of Service Jul 07, 2017. Progress Note Will plan on permcath insertion sunday in the am.
--- NOTE | 2017-07-07 10:39 | Nephrology Progress Note ---
Nephrology Progress Note Date of Service Jul 07, 2017. Chief Complaint F/u for acute kidney injury, oliguria, significant electrolyte abnormality. Cristian Cadena was seen and examined in her room this morning. She was awake alert, looks comfortable, resting in bed. Denies any chest pain, shortness of breath or abdominal pain. Vital signs stable. Had dialysis yesterday. Urine output continues to be low, no sign of renal recovery. Electrolyte acceptable. Review of Systems A complete review of systems was performed. Pertinent positives are noted above. All other systems are negative. Vital Signs Last 8 Hrs Date Time Temp Pulse Resp B/P (MAP) Pulse Ox O2 Delivery O2 Flow Rate FiO2 07/07/17 08:00 36.5 95 20 154/78 (103) 93 Room Air 07/07/17 08:00 93 Room Air 07/07/17 05:54 85 22 153/77 (111) 93 07/07/17 04:00 92 Room Air 07/07/17 03:56 36.7 78 24 168/76 (100) 92 Last Recorded Weight Weight (Kilograms): 79.700 Physical Exam GENERAL: Elderly female, awake, alert, ill-appearing, not in any distress. NECK: Supple, no JVD. RESPIRATORY: Normal breathing efforts,rales b/l bases. CARDIOVASCULAR: S1, S2 normal, rate rhythm regular. EXTREMITY: No lower extremity edema NEURO: speech fluent. PSYCHIATRY: Normal mood and judgment Family History Diabetes mellitus Heart disease Hypertension Social History Drug Use: none Occupation: retired Laboratory Results Past 24 Hours 07/06/17 12:25 07/06/17 16:07 07/07/17 05:41 Test 07/06/17 12:25 07/06/17 16:07 07/07/17 05:41 Anion Gap 8.0 mmol/L (3-11) 9.0 mmol/L (3-11) 12.0 mmol/L (3-11) Est Creatinine Clear Calc Drug Dose 17.3 ml/min 11.3 ml/min 10.4 ml/min Estimated GFR () 23.7 14.3 12.6 Estimated GFR (Non- 20.5 12.3 10.8 BUN/Creatinine Ratio 23.3 (10-20) 25.5 (10-20) 25.0 (10-20) Calcium Level 7.3 mg/dl (8.5-10.1) 7.2 mg/dl (8.5-10.1) 6.8 mg/dl (8.5-10.1) Hepatitis B Surface Antigen NEG (NEG) Hepatitis B Surface Antibody NEG Phosphorus Level 7.5 mg/dl (2.5-4.9) Magnesium Level 2.1 mg/dl (1.8-2.4) Allergies Coded Allergies: Solifenacin (Verified Allergy, Intermediate, HIVES, 07/06/17) Codeine (Verified Adverse Reaction, Intermediate, DIZZINESS, 07/06/17) Medications Current Inpatient Medications Medications (Trade) Dose Ordered Sig/Niraj Route Start Time Stop Time Status Last Admin Dose Admin Metoprolol Succinate (Toprol Xl Tab) 50 mg QAM PO 07/06/17 09:00 08/05/17 08:59 07/07/17 07:46 50 MG Metoprolol Succinate (Toprol Xl Tab) 25 mg QPM PO 07/06/17 21:00 08/05/17 20:59 07/06/17 20:28 25 MG Pravastatin Sodium (Pravachol Tab) 20 mg HS PO 07/06/17 21:00 08/05/17 20:59 07/06/17 20:28 20 MG Sertraline HCl (Zoloft Tab) 50 mg DAILY PO 07/06/17 09:00 08/05/17 08:59 07/07/17 07:48 50 MG Tamsulosin HCl (Flomax Cap) 0.4 mg DAILY PO 07/06/17 09:00 08/05/17 08:59 07/07/17 07:47 0.4 MG Tramadol HCl (Ultram Tab) 100 mg BID PO 07/06/17 09:00 08/05/17 08:59 07/07/17 07:51 100 MG Sodium Chloride 1,000 ml @ 100 mls/hr Q10H IV 07/06/17 03:45 08/05/17 03:44 07/06/17 23:10 100 MLS/HR Heparin Sodium (Porcine) (Heparin Sq 5000 Unit/0.5ml) 5,000 unit Q8H SQ 07/06/17 08:00 08/05/17 07:59 07/07/17 07:59 5,000 UNIT Acetaminophen (Tylenol Tab) 650 mg Q4H PRN PO 07/06/17 03:45 08/05/17 03:44 Al Hydrox/Mg Hydrox/Simethicone (Maalox Max Susp) 15 ml Q4H PRN PO 07/06/17 03:45 08/05/17 03:44 Magnesium Hydroxide (Milk Of Magnesia Susp) 30 ml Q6H PRN PO 07/06/17 03:45 08/05/17 03:44 Polyethylene (Miralax Powder Packet) 17 gm DAILY PRN PO 07/06/17 03:45 08/05/17 03:44 Ondansetron HCl (Zofran Inj) 4 mg Q6H PRN IV 07/06/17 03:45 08/05/17 03:44 07/07/17 09:35 4 MG Levofloxacin (Consult) 1 ea UD PRN N/A 07/06/17 17:15 08/05/17 17:14 Levofloxacin 500 mg/Prmx 100 ml @ 100 mls/hr Q48H IV 07/08/17 08:00 07/18/17 07:59 Impression (1) Acute renal failure (2) Delirium (3) Hyperkalemia (4) Metabolic acidosis (5) Oliguria (6) HTN (hypertension) (7) Proteinuria (8) Hematuria Tammi is a 87-year-old female with past medical history of hypertension and stage 3 chronic kidney disease admitted to the hospital with change in mental status, overall declining health, poor p.o. intake over last few weeks and found to have acute kidney injury and significant electrolyte abnormality. On admission creatinine was 5.8 with her baseline creatinine 1.3-1.4. Creatinine declined further to 6.2, electrolyte abnormality including hyperkalemia and metabolic acidosis has been worsening. She has been on IV fluid since admission however urine output remained low. Urinalysis showing 2+ proteinuria and microscopic hematuria. Renal ultrasound unremarkable for postrenal obstruction. Vital sign has been stable. Acute kidney injury could be secondary to hemodynamically mediated ATN with poor p.o. intake and taking NSAID regularly, however cannot exclude possibility for acute glomerular and nephritis at this point including anti-GBM or ANCA vasculitis considering proteinuria and hematuria on urinalysis. Serology pending, started on dialysis on 07/06/2017 for significant electrolyte abnormality. Tolerated 3 hours dialysis, had 1 L UF. So far no sign of renal recovery. Recommendations --Plan for 3 hours dialysis today with 3 K bath, UF as tolerated --will monitor over the weekend and assess for need for dialysis Sunday. If no sign of renal recovery and patient does require dialysis on Sunday, will need to schedule for tunnel dialysis catheter and remove femoral line. --Tums 1 tab 3 times a day with meals as phosphate binder --check PTH and vitamin-D --avoid hypotension --avoid nephrotoxic medications Will follow
[2017-07-07] MEDS: SODIUM CHLORIDE 0.9% 1000ML 1,000 ML IV SCH (11:16)
--- NOTE | 2017-07-07 12:37 | Progress Note ---
Subjective Date of Service: Jul 07, 2017. Subjective Pt evaluation today including: conversation w/ patient, conversation w/ family , physical exam, chart review, lab review, review of studies, review of inpatient medication list Pt in mild distress Nauseated this AM and given zofran Alert and oriented x 3 No further incidents overnight Problem List Medical Problems: (1) Acute renal failure Status: Acute (2) Delirium Status: Acute (3) Hyperkalemia Status: Acute Objective Vital Signs Date Time Temp Pulse Resp B/P (MAP) Pulse Ox O2 Delivery O2 Flow Rate FiO2 07/07/17 12:00 92 Room Air 07/07/17 12:00 36.3 85 18 173/77 (109) 92 Room Air 07/07/17 08:00 36.5 95 20 154/78 (103) 93 Room Air 07/07/17 08:00 93 Room Air 07/07/17 05:54 85 22 153/77 (111) 93 07/07/17 04:00 92 Room Air 07/07/17 03:56 36.7 78 24 168/76 (100) 92 07/07/17 02:05 83 22 143/67 (94) 93 07/06/17 23:59 95 Room Air 07/06/17 22:53 36.8 99 26 91/51 (57) 95 07/06/17 20:00 97 Room Air 07/06/17 19:51 36.8 102 24 142/56 (77) 97 07/06/17 16:00 36.5 108 20 112/58 (76) 97 Room Air 07/06/17 16:00 97 Room Air 07/06/17 15:15 36.8 99 113/58 (76) 07/06/17 14:45 100 90/49 07/06/17 14:30 96 78/36 07/06/17 14:15 98 75/55 07/06/17 14:00 100 81/45 07/06/17 13:45 84 88/37 07/06/17 13:30 109 80/41 07/06/17 13:15 98 99/47 07/06/17 13:00 87 102/53 07/06/17 12:45 96 84/39 07/06/17 12:30 81 84/49 Laboratory Results Last 24 Hours Test 07/06/17 16:07 07/07/17 05:41 07/07/17 10:48 Sodium Level 134 mmol/L 135 mmol/L Potassium Level 3.6 mmol/L 3.9 mmol/L Chloride Level 105 mmol/L 106 mmol/L Carbon Dioxide Level 20 mmol/L 17 mmol/L Anion Gap 9.0 mmol/L 12.0 mmol/L Blood Urea Nitrogen 83 mg/dl 91 mg/dl Creatinine 3.26 mg/dl 3.62 mg/dl Est Creatinine Clear Calc Drug Dose 11.3 ml/min 10.4 ml/min Estimated GFR () 14.3 12.6 Estimated GFR (Non- 12.3 10.8 BUN/Creatinine Ratio 25.5 25.0 Random Glucose 100 mg/dl 95 mg/dl Calcium Level 7.2 mg/dl 6.8 mg/dl Phosphorus Level 7.5 mg/dl Magnesium Level 2.1 mg/dl 25-Hydroxy Vitamin D Total 35.4 ng/ml Parathyroid Hormone (Intact) 381.4 pg/mL Assessment and Plan Pt is a 87 yo female with hx of HTN, CKD stage 3 who presented to hospital with altered mental status, recent illness and poor PO intake for last few weeks. OTILIA on CKD stage 3 likely secondary to ATN, cont IVF, emergent access and dialysis started on 07/06. Will undergo another dialysis session on 07/07. Renal US unremarkable. May need TDC if dialysis to continue. No marked sign of renal recovery. Appreciate nephrology recs at this time UA indicative of UTI, await urine cx, cont renally dosed levaquin at this time Hyperkalemia - resolved with kayexalate and IVF HTN - cont metoprolol, elev BP likely from agitation Incontinence - cont Flomax. Full code - Heparin prophylaxis
[2017-07-07] MEDS: CALCIUM CARBONATE 500 MG CHEWABLE PO SCH ×2 (13:47→16:00)
--- NOTE | 2017-07-07 15:18 | Critical Care Consultation ---
Critical Care Consultation Date of Consultation: Jul 06, 2017. Attending Physician: Nabeel Clements D.O. Reason for Consultation: Temporary femoral hemodialysis catheter History of Present Illness Patient is an 87-year-old female who presented with acute kidney injury and hyperkalemia who needs temporary vascular access for hemodialysis Past Medical/Surgical History Chronic kidney disease Family History Diabetes mellitus Heart disease Hypertension Social History Smoking Status: Former Smoker Drug Use: none Housing Status: lives with family Occupation Status: retired Allergies Coded Allergies: Solifenacin (Verified Allergy, Intermediate, HIVES, 07/06/17) Codeine (Verified Adverse Reaction, Intermediate, DIZZINESS, 07/06/17) Home Medications Scheduled Cholecalciferol (Vitamin D 1000 Unit), 1,000 INTER.UNIT PO DAILY Metoprolol Succ (Toprol Xl) (Toprol-Xl), 50 MG PO QAM Metoprolol Succinate (Metoprolol Succinate ER), 25 MG PO QPM Multiple Vitamins W/ Minerals (Centrum Silver Ultra Wome), 1 TAB PO QAM Potassium (Potassium), 99 MG PO DAILY Pravastatin (Pravachol ), 20 MG PO HS Sertraline (Zoloft), 50 MG PO DAILY Tamsulosin Hcl (Flomax), 0.4 MG PO DAILY Tramadol (Ultram), 100 MG PO BID Current Inpatient Medications Current Inpatient Medications Medications (Trade) Dose Ordered Sig/Niraj Route Start Time Stop Time Status Last Admin Dose Admin Metoprolol Succinate (Toprol Xl Tab) 50 mg QAM PO 07/06/17 09:00 08/05/17 08:59 07/07/17 07:46 50 MG Metoprolol Succinate (Toprol Xl Tab) 25 mg QPM PO 07/06/17 21:00 08/05/17 20:59 07/06/17 20:28 25 MG Pravastatin Sodium (Pravachol Tab) 20 mg HS PO 07/06/17 21:00 08/05/17 20:59 07/06/17 20:28 20 MG Sertraline HCl (Zoloft Tab) 50 mg DAILY PO 07/06/17 09:00 08/05/17 08:59 07/07/17 07:48 50 MG Tamsulosin HCl (Flomax Cap) 0.4 mg DAILY PO 07/06/17 09:00 08/05/17 08:59 07/07/17 07:47 0.4 MG Tramadol HCl (Ultram Tab) 100 mg BID PO 07/06/17 09:00 08/05/17 08:59 07/07/17 07:51 100 MG Sodium Chloride 1,000 ml @ 100 mls/hr Q10H IV 07/06/17 03:45 08/05/17 03:44 07/07/17 11:16 100 MLS/HR Heparin Sodium (Porcine) (Heparin Sq 5000 Unit/0.5ml) 5,000 unit Q8H SQ 07/06/17 08:00 08/05/17 07:59 07/07/17 07:59 5,000 UNIT Acetaminophen (Tylenol Tab) 650 mg Q4H PRN PO 07/06/17 03:45 08/05/17 03:44 Al Hydrox/Mg Hydrox/Simethicone (Maalox Max Susp) 15 ml Q4H PRN PO 07/06/17 03:45 08/05/17 03:44 Magnesium Hydroxide (Milk Of Magnesia Susp) 30 ml Q6H PRN PO 07/06/17 03:45 08/05/17 03:44 Polyethylene (Miralax Powder Packet) 17 gm DAILY PRN PO 07/06/17 03:45 08/05/17 03:44 Ondansetron HCl (Zofran Inj) 4 mg Q6H PRN IV 07/06/17 03:45 08/05/17 03:44 07/07/17 09:35 4 MG Levofloxacin (Consult) 1 ea UD PRN N/A 07/06/17 17:15 08/05/17 17:14 Levofloxacin 500 mg/Prmx 100 ml @ 100 mls/hr Q48H IV 07/08/17 08:00 07/18/17 07:59 Calcium Carbonate (Tums Chew Tab) 500 mg AC PO 07/07/17 11:00 08/06/17 10:59 Review of Systems Constitutional: No fever Abdomen: No pain Physical Exam Date Time Temp Pulse Resp B/P (MAP) Pulse Ox O2 Delivery O2 Flow Rate FiO2 07/07/17 12:00 92 Room Air 07/07/17 12:00 36.3 85 18 173/77 (109) 92 Room Air 07/07/17 08:00 36.5 95 20 154/78 (103) 93 Room Air 07/07/17 08:00 93 Room Air 07/07/17 05:54 85 22 153/77 (111) 93 07/07/17 04:00 92 Room Air 07/07/17 03:56 36.7 78 24 168/76 (100) 92 07/07/17 02:05 83 22 143/67 (94) 93 07/06/17 23:59 95 Room Air 07/06/17 22:53 36.8 99 26 91/51 (57) 95 07/06/17 20:00 97 Room Air 07/06/17 19:51 36.8 102 24 142/56 (77) 97 07/06/17 16:00 36.5 108 20 112/58 (76) 97 Room Air 07/06/17 16:00 97 Room Air 07/06/17 15:15 36.8 99 113/58 (76) Well-nourished well-hydrated Disoriented to place, wax capacity to consent as she does not have insight into complications, cannot repeat procedure back to tn Laboratory Results Last 24 Hours Test 07/06/17 16:07 07/07/17 05:41 07/07/17 10:48 Sodium Level 134 mmol/L 135 mmol/L Potassium Level 3.6 mmol/L 3.9 mmol/L Chloride Level 105 mmol/L 106 mmol/L Carbon Dioxide Level 20 mmol/L 17 mmol/L Anion Gap 9.0 mmol/L 12.0 mmol/L Blood Urea Nitrogen 83 mg/dl 91 mg/dl Creatinine 3.26 mg/dl 3.62 mg/dl Est Creatinine Clear Calc Drug Dose 11.3 ml/min 10.4 ml/min Estimated GFR () 14.3 12.6 Estimated GFR (Non- 12.3 10.8 BUN/Creatinine Ratio 25.5 25.0 Random Glucose 100 mg/dl 95 mg/dl Calcium Level 7.2 mg/dl 6.8 mg/dl Phosphorus Level 7.5 mg/dl Magnesium Level 2.1 mg/dl 25-Hydroxy Vitamin D Total 35.4 ng/ml Parathyroid Hormone (Intact) 381.4 pg/mL Assessment & Plan #1 hyperkalemia - Requested by Dr. Horne to place temporary femoral hemodialysis catheter - Anticipate tunneled catheter placement at the start of the week I discussed the procedure with the patient's son who provided consent Please see procedure note for further details
--- NOTE | 2017-07-07 15:19 | Procedure Note ---
Procedure Note Procedure Date Jul 06, 2017. Central Line Procedure time out: side/site verified, patient ID confirmed, sterile procedure used Consent obtained: verbal (telephone consent with son) Time of procedure: 11:00 Performed by: attending Indications: other (hemodialysis catheter) Prep: chlorhexadine prep, sterile drape, sterile procedures used Anesthesia: lidocaine 1% without epi Volume anesthetic (ml's): 2 Central line lumen: double Central line location: femoral (R) Additional details: ultrasound guidance (dynamic), Selinger technique used, line sutured, good blood return CXR: other (not applicable) Complications: none Patient tolerated procedure: well Post-procedure vital signs: reviewed and stable
[2017-07-07] MEDS ORDERED: ALBUTEROL 0.083% NEBU SOLN 3 ML VIAL INH PRN (16:15)
[2017-07-07] MEDS ORDERED: NURSING VERBAL MED ORDER ONE ×2 (16:15)
[2017-07-07] MEDS: ALBUTEROL 0.083% NEBU SOLN 3 ML VIAL INH SCH ×3 (16:27→23:06)
[2017-07-07] MEDS: PRAVASTATIN SOD 20 MG TAB PO SCH (21:21)
[2017-07-08] VITALS (7 sets, daily range): BP systolic 133–178; BP diastolic 53–91; PULSE 69–82; TEMP 36.5–36.8; O2SAT 90–93
[2017-07-08] MEDS: ALBUTEROL 0.083% NEBU SOLN 3 ML VIAL INH SCH ×4 (02:54→23:00)
[2017-07-08 05:50] LABS: BASO % 0.1 %; BASO ABS # 0.01 K/uL (0-0.2); COMPLETE YES; EOS % 0.1 %; HEMATOCRIT 28.8 % (37-47); IG% 0.9 %; LYMPH % 13.5 %; LYMPH ABS # 1.14 K/uL (1.2-3.4); MEAN CELL VOLUME 81.6 fL (80-100); MEAN CORPUSCULAR HEMOGLOBIN 27.5 pg (25-34); MEAN CORPUSCULAR HGB CONC 33.7 g/dl (32-36); MEAN PLATELET VOLUME 9.5 fL (7.4-10.4); MONO % 8.2 %; NEUT % 77.2 %; PLATELET COUNT 190 K/uL (130-400); RED BLOOD COUNT 3.53 M/uL (4.2-5.4); WHITE BLOOD COUNT 8.46 K/uL (4.8-10.8)
[2017-07-08 06:33] LABS: BUN/CREATININE RATIO 17.6 (10-20); CALCIUM 7.2 mg/dl (8.5-10.1); CREATININE 2.82 mg/dl (0.60-1.20); POTASSIUM 3.6 mmol/L (3.5-5.1)
[2017-07-08] MEDS: CALCIUM CARBONATE 500 MG CHEWABLE PO SCH ×3 (06:35→16:23)
[2017-07-08] MEDS: HEPARIN SOD 5000 UNIT/0.5 ML CARP SQ SCH ×3 (08:00→22:20)
[2017-07-08] MEDS: METOPROLOL SUCC 25MG EXT REL TAB PO SCH ×2 (09:00→20:09)
[2017-07-08] MEDS: TAMSULOSIN HCL 0.4 MG CAP PO SCH (09:00)
[2017-07-08] MEDS: SERTRALINE HCL 50 MG TAB PO SCH (09:00)
[2017-07-08] MEDS: TRAMADOL HCL 50 MG TAB PO SCH ×2 (09:00→20:08)
--- NOTE | 2017-07-08 09:38 | DIAGNOSTIC IMAGING REPORT ---
CHEST ONE VIEW PORTABLE HISTORY: 87 years-old Female congestion on lung ascultation COMPARISON: Chest radiographs 07/26/2015, chest CT 04/12/2017 TECHNIQUE: Portable AP view of the chest FINDINGS: Cardiac silhouette is within normal limits. There is persistent mild prominence of the mediastinum. Atherosclerosis of the aorta. No pneumothorax or large pleural effusion. Subsegmental patchy bibasilar opacities are present, left greater than right. Severe degenerative changes of the left greater the right shoulders with associated remodeling and periarticular calcifications. IMPRESSION: 1. Patchy subsegmental left greater than right bibasilar opacities suggest atelectasis or pneumonitis. 2. No overt pulmonary edema. The above report was generated using voice recognition software. It may contain grammatical, syntax or spelling errors. Electronically signed by: Aly Ellsworth M.D. 07/08/2017 9:36 AM Dictated Date/Time: 07/08/2017 9:33 AM
[2017-07-08] MEDS ORDERED: CALCIUM GLUCONATE 10% 1,000 MG in SODIUM CHLORIDE 0.9% 50ML 50 ML IV STA (09:52)
[2017-07-08] MEDS: LEVOFLOXACIN 500MG / D5W IV SCH (11:43)
--- NOTE | 2017-07-08 11:56 | Nephrology Progress Note ---
Nephrology Progress Note Date of Service Jul 08, 2017. Chief Complaint F/u for acute kidney injury, oliguria, significant electrolyte abnormality. Cristian Cadena was seen and examined in her room this morning. She has been otherwise doing well, denies any shortness of breath or chest pain. Blood pressure and volume status acceptable. Urine output seems to be improving, made more than 400 mL over last 24 hours. Electrolyte remain acceptable. Had 3 hours dialysis yesterday. Review of Systems A complete review of systems was performed. Pertinent positives are noted above. All other systems are negative. Vital Signs Last 8 Hrs Date Time Temp Pulse Resp B/P (MAP) Pulse Ox O2 Delivery O2 Flow Rate FiO2 07/08/17 11:23 Room Air 07/08/17 11:21 36.7 73 18 175/91 (119) 92 Room Air 07/08/17 08:15 Room Air 07/08/17 07:05 36.6 72 18 133/72 (92) 91 Room Air 07/08/17 06:02 36.7 71 80 160/53 (88) 93 Room Air 07/08/17 04:00 92 Room Air 07/08/17 04:00 36.8 82 19 148/63 (91) 92 Room Air Last Recorded Weight Weight (Kilograms): 80.100 Physical Exam GENERAL: Elderly female, awake, alert, ill-appearing, not in any distress. NECK: Supple, no JVD. RESPIRATORY: Normal breathing efforts, no wheezes or crackles CARDIOVASCULAR: S1, S2 normal, rate rhythm regular. EXTREMITY: No lower extremity edema NEURO: speech fluent. PSYCHIATRY: Normal mood and judgment Family History Diabetes mellitus Heart disease Hypertension Social History Drug Use: none Occupation: retired Laboratory Results Past 24 Hours 07/08/17 05:10 Red Blood Count 3.53, Mean Corpuscular Volume 81.6, Mean Corpuscular Hemoglobin 27.5, Mean Corpuscular Hemoglobin Concent 33.7, Mean Platelet Volume 9.5, Neutrophils (%) (Auto) 77.2, Lymphocytes (%) (Auto) 13.5, Monocytes (%) (Auto) 8.2, Eosinophils (%) (Auto) 0.1, Basophils (%) (Auto) 0.1, Neutrophils # (Auto) 6.53, Lymphocytes # (Auto) 1.14, Monocytes # (Auto) 0.69, Eosinophils # (Auto) 0.01, Basophils # (Auto) 0.01 07/08/17 05:10 Test 07/08/17 05:10 White Blood Count 8.46 K/uL (4.8-10.8) Red Blood Count 3.53 M/uL (4.2-5.4) Hemoglobin 9.7 g/dL (12.0-16.0) Hematocrit 28.8 % (37-47) Mean Corpuscular Volume 81.6 fL (80-100) Mean Corpuscular Hemoglobin 27.5 pg (25-34) Mean Corpuscular Hemoglobin Concent 33.7 g/dl (32-36) Platelet Count 190 K/uL (130-400) Mean Platelet Volume 9.5 fL (7.4-10.4) Neutrophils (%) (Auto) 77.2 % Lymphocytes (%) (Auto) 13.5 % Monocytes (%) (Auto) 8.2 % Eosinophils (%) (Auto) 0.1 % Basophils (%) (Auto) 0.1 % Neutrophils # (Auto) 6.53 K/uL (1.4-6.5) Lymphocytes # (Auto) 1.14 K/uL (1.2-3.4) Monocytes # (Auto) 0.69 K/uL (0.11-0.59) Eosinophils # (Auto) 0.01 K/uL (0-0.5) Basophils # (Auto) 0.01 K/uL (0-0.2) RDW Standard Deviation 44.6 fL (36.4-46.3) RDW Coefficient of Variation 15.0 % (11.5-14.5) Immature Granulocyte % (Auto) 0.9 % Immature Granulocyte # (Auto) 0.08 K/uL (0.00-0.02) Anion Gap 11.0 mmol/L (3-11) Est Creatinine Clear Calc Drug Dose 13.3 ml/min Estimated GFR () 17.0 Estimated GFR (Non- 14.7 BUN/Creatinine Ratio 17.6 (10-20) Calcium Level 7.2 mg/dl (8.5-10.1) Phosphorus Level 5.6 mg/dl (2.5-4.9) Magnesium Level 2.0 mg/dl (1.8-2.4) Allergies Coded Allergies: Solifenacin (Verified Allergy, Intermediate, HIVES, 07/06/17) Codeine (Verified Adverse Reaction, Intermediate, DIZZINESS, 07/06/17) Medications Current Inpatient Medications Medications (Trade) Dose Ordered Sig/Niraj Route Start Time Stop Time Status Last Admin Dose Admin Metoprolol Succinate (Toprol Xl Tab) 50 mg QAM PO 07/06/17 09:00 08/05/17 08:59 07/08/17 09:00 50 MG Metoprolol Succinate (Toprol Xl Tab) 25 mg QPM PO 07/06/17 21:00 08/05/17 20:59 07/07/17 21:21 25 MG Pravastatin Sodium (Pravachol Tab) 20 mg HS PO 07/06/17 21:00 08/05/17 20:59 07/07/17 21:21 20 MG Sertraline HCl (Zoloft Tab) 50 mg DAILY PO 07/06/17 09:00 08/05/17 08:59 07/08/17 09:00 50 MG Tamsulosin HCl (Flomax Cap) 0.4 mg DAILY PO 07/06/17 09:00 08/05/17 08:59 07/08/17 09:00 0.4 MG Tramadol HCl (Ultram Tab) 100 mg BID PO 07/06/17 09:00 08/05/17 08:59 07/08/17 09:00 100 MG Heparin Sodium (Porcine) (Heparin Sq 5000 Unit/0.5ml) 5,000 unit Q8H SQ 07/06/17 08:00 08/05/17 07:59 07/08/17 08:00 5,000 UNIT Acetaminophen (Tylenol Tab) 650 mg Q4H PRN PO 07/06/17 03:45 08/05/17 03:44 Al Hydrox/Mg Hydrox/Simethicone (Maalox Max Susp) 15 ml Q4H PRN PO 07/06/17 03:45 08/05/17 03:44 Magnesium Hydroxide (Milk Of Magnesia Susp) 30 ml Q6H PRN PO 07/06/17 03:45 08/05/17 03:44 Polyethylene (Miralax Powder Packet) 17 gm DAILY PRN PO 07/06/17 03:45 08/05/17 03:44 Ondansetron HCl (Zofran Inj) 4 mg Q6H PRN IV 07/06/17 03:45 08/05/17 03:44 07/07/17 09:35 4 MG Levofloxacin (Consult) 1 ea UD PRN N/A 07/06/17 17:15 08/05/17 17:14 Levofloxacin 500 mg/Prmx 100 ml @ 100 mls/hr Q48H IV 07/08/17 08:00 07/18/17 07:59 07/08/17 11:43 100 MLS/HR Calcium Carbonate (Tums Chew Tab) 500 mg AC PO 07/07/17 11:00 08/06/17 10:59 07/08/17 11:12 500 MG Albuterol Sulfate (Ventolin 0.083% 2.5MG/3ML Neb) 2.5 mg Q4 INH 07/07/17 16:15 08/06/17 16:14 07/07/17 16:27 2.5 MG Albuterol Sulfate (Ventolin 0.083% 2.5MG/3ML Neb) 2.5 mg Q2H PRN INH 07/07/17 16:15 08/06/17 16:14 Impression (1) Acute renal failure (2) Delirium (3) Hyperkalemia (4) Metabolic acidosis (5) Oliguria (6) HTN (hypertension) (7) Proteinuria (8) Hematuria Tammi is a 87-year-old female with past medical history of hypertension and stage 3 chronic kidney disease admitted to the hospital with change in mental status, overall declining health, poor p.o. intake over last few weeks and found to have acute kidney injury and significant electrolyte abnormality. On admission creatinine was 5.8 with her baseline creatinine 1.3-1.4. Creatinine declined further to 6.2, electrolyte abnormality including hyperkalemia and metabolic acidosis has been worsening. She has been on IV fluid since admission however urine output remained low. Urinalysis showing 2+ proteinuria and microscopic hematuria. Renal ultrasound unremarkable for postrenal obstruction. Vital sign has been stable. Found to have urinary tract infection with E coli, currently on Levaquin. Acute kidney injury could be secondary to hemodynamically mediated ATN with poor p.o. intake and taking NSAID regularly, however cannot exclude possibility for acute glomerular and nephritis at this point including anti-GBM or ANCA vasculitis considering proteinuria and hematuria on urinalysis. Serology pending, started on dialysis on 07/06/2017 for significant electrolyte abnormality. Had 3 hours of dialysis each on Sunday and Sunday. Recommendations --volume status, blood pressure and electrolyte acceptable, urine output slightly improved. --will monitor over the weekend and assess for need for dialysis Sunday morning depending on her rise in creatinine, electrolyte and urine output. If urine output improve, electrolyte remain acceptable and creatinine stays stable, will schedule for removal of femoral line and watch for continued renal recovery. May not need any further dialysis. --Tums 1 tab 3 times a day with meals as phosphate binder --calcium gluconate 1 gram x1 dose --check PTH and vitamin-D --avoid hypotension --avoid nephrotoxic medications Will follow
--- NOTE | 2017-07-08 14:12 | Progress Note ---
Subjective Date of Service: Jul 08, 2017. Subjective Pt evaluation today including: conversation w/ patient, physical exam, chart review, lab review, review of studies, review of inpatient medication list Pt resting comfortably in bed No distress noted Updated son (Darryl) on phone Urine output improved Agitation resolved Problem List Medical Problems: (1) Acute renal failure Status: Acute (2) Delirium Status: Acute (3) Hyperkalemia Status: Acute Review of Systems Constitutional: No fever, No chills, No sweats, No weight loss Eyes: No worsening of vision, No eye pain, No redness, No discharge ENT: No hearing loss, No unusual epistaxis, No nasal symptoms, No sore throat Respiratory: No cough, No sputum, No wheezing, No shortness of breath Cardiac: No chest pain, No orthopnea, No PND, No edema Abdomen: No pain, No nausea, No vomiting, No diarrhea Musculoskeletal: No joint pain, No muscle pain, No swelling, No calf pain Female : No dysuria, No urinary frequency, No hematuria, No incontinence Neurologic: No memory loss, No paralysis, No weakness, No numbness/tingling Psychiatric: No depression symptoms, No anhedonism, No anxiety, No insomnia Endo: No fatigue, No excessive thirst Skin: No rash, No itch Objective Vital Signs Date Time Temp Pulse Resp B/P (MAP) Pulse Ox O2 Delivery O2 Flow Rate FiO2 07/08/17 11:23 Room Air 07/08/17 11:21 36.7 73 18 175/91 (119) 92 Room Air 07/08/17 08:15 Room Air 07/08/17 07:05 36.6 72 18 133/72 (92) 91 Room Air 07/08/17 06:02 36.7 71 80 160/53 (88) 93 Room Air 07/08/17 04:00 92 Room Air 07/08/17 04:00 36.8 82 19 148/63 (91) 92 Room Air 07/07/17 23:59 92 Room Air 07/07/17 23:59 36.5 65 20 138/67 (90) 92 Room Air 07/07/17 20:00 36.4 68 14 111/85 (94) 92 Room Air 07/07/17 20:00 92 Room Air 07/07/17 18:00 95 20 151/62 (91) 92 Room Air 07/07/17 16:41 91 16 96 Room Air 07/07/17 16:15 36.5 83 172/84 (113) 07/07/17 16:00 92 Room Air 07/07/17 16:00 73 147/78 07/07/17 16:00 36.7 95 20 133/92 (106) 92 Room Air 07/07/17 15:45 86 136/65 07/07/17 15:30 91 150/85 07/07/17 15:15 88 154/76 07/07/17 15:00 88 140/103 07/07/17 14:45 92 133/99 07/07/17 14:30 84 112/77 07/07/17 14:15 92 198/94 Physical Exam General Appearance: WD/WN, no apparent distress Eyes: normal inspection, PERRL, EOMI, sclerae normal Neck: supple, no adenopathy, thyroid normal, no JVD Respiratory/Chest: chest non-tender, lungs clear, normal breath sounds, no respiratory distress Cardiovascular: regular rate, rhythm, no edema, no gallop, no JVD Abdomen: normal bowel sounds, non tender, soft, no organomegaly Extremities: normal range of motion, non-tender, normal inspection, no pedal edema Neurologic/Psychiatric: no motor/sensory deficits, alert, normal mood/affect, oriented x 3 Skin: normal color, warm/dry, no rash Lymphatic: no adenopathy Laboratory Results Last 24 Hours Test 07/08/17 05:10 White Blood Count 8.46 K/uL Red Blood Count 3.53 M/uL Hemoglobin 9.7 g/dL Hematocrit 28.8 % Mean Corpuscular Volume 81.6 fL Mean Corpuscular Hemoglobin 27.5 pg Mean Corpuscular Hemoglobin Concent 33.7 g/dl Platelet Count 190 K/uL Mean Platelet Volume 9.5 fL Neutrophils (%) (Auto) 77.2 % Lymphocytes (%) (Auto) 13.5 % Monocytes (%) (Auto) 8.2 % Eosinophils (%) (Auto) 0.1 % Basophils (%) (Auto) 0.1 % Neutrophils # (Auto) 6.53 K/uL Lymphocytes # (Auto) 1.14 K/uL Monocytes # (Auto) 0.69 K/uL Eosinophils # (Auto) 0.01 K/uL Basophils # (Auto) 0.01 K/uL RDW Standard Deviation 44.6 fL RDW Coefficient of Variation 15.0 % Immature Granulocyte % (Auto) 0.9 % Immature Granulocyte # (Auto) 0.08 K/uL Sodium Level 136 mmol/L Potassium Level 3.6 mmol/L Chloride Level 100 mmol/L Carbon Dioxide Level 25 mmol/L Anion Gap 11.0 mmol/L Blood Urea Nitrogen 50 mg/dl Creatinine 2.82 mg/dl Est Creatinine Clear Calc Drug Dose 13.3 ml/min Estimated GFR () 17.0 Estimated GFR (Non- 14.7 BUN/Creatinine Ratio 17.6 Random Glucose 96 mg/dl Calcium Level 7.2 mg/dl Phosphorus Level 5.6 mg/dl Magnesium Level 2.0 mg/dl Assessment and Plan Pt is a 87 yo female with hx of HTN, CKD stage 3 who presented to hospital with altered mental status, recent illness and poor PO intake for last few weeks. OTILIA on CKD stage 3 likely secondary to ATN, cont IVF, emergent access and dialysis started on 07/06. Underwent another dialysis session on 07/07. Renal US unremarkable. May need TDC if dialysis to continue. Improved urine output. Appreciate nephrology recs at this time If worsening Cr or urine output, will consider TDC and further dialysis. UA indicative of UTI, urine cx - ecoli, cont renally dosed levaquin at this time Hyperkalemia - resolved with kayexalate and IVF HTN - cont metoprolol, elev BP likely from agitation Incontinence - cont Flomax. Full code - Heparin prophylaxis
[2017-07-08] MEDS: PRAVASTATIN SOD 20 MG TAB PO SCH (20:08)
[2017-07-08] MEDS: ONDANSETRON INJ 2 MG/ML 2 ML VIAL IV PRN (22:21)
[2017-07-09] VITALS (19 sets, daily range): BP systolic 107–172; BP diastolic 57–84; PULSE 65–95; TEMP 36.4–36.8; O2SAT 90–94
[2017-07-09] MEDS: ALBUTEROL 0.083% NEBU SOLN 3 ML VIAL INH SCH ×6 (03:03→23:15)
[2017-07-09] MEDS: CALCIUM CARBONATE 500 MG CHEWABLE PO SCH ×3 (06:25→16:33)
[2017-07-09 06:27] LABS: COMPLETE YES; EOS % 0.3 %; HEMATOCRIT 30.8 % (37-47); IG% 0.8 %; LYMPH % 13.6 %; LYMPH ABS # 1.35 K/uL (1.2-3.4); MEAN CELL VOLUME 83.5 fL (80-100); MEAN CORPUSCULAR HEMOGLOBIN 27.9 pg (25-34); MEAN CORPUSCULAR HGB CONC 33.4 g/dl (32-36); MEAN PLATELET VOLUME 9.5 fL (7.4-10.4); MONO % 7.4 %; NEUT % 77.9 %; PLATELET COUNT 201 K/uL (130-400); RED BLOOD COUNT 3.69 M/uL (4.2-5.4); WHITE BLOOD COUNT 9.94 K/uL (4.8-10.8)
[2017-07-09 07:05] LABS: CALCIUM 7.9 mg/dl (8.5-10.1); CREATININE 3.28 mg/dl (0.60-1.20); POTASSIUM 3.8 mmol/L (3.5-5.1)
[2017-07-09 07:06] LABS: PHOSPHORUS 5.2 mg/dl (2.5-4.9)
[2017-07-09] MEDS: TRAMADOL HCL 50 MG TAB PO SCH ×2 (08:21→20:00)
[2017-07-09] MEDS: SERTRALINE HCL 50 MG TAB PO SCH (08:21)
[2017-07-09] MEDS: METOPROLOL SUCC 25MG EXT REL TAB PO SCH ×2 (08:21→19:58)
[2017-07-09] MEDS: TAMSULOSIN HCL 0.4 MG CAP PO SCH (08:21)
--- NOTE | 2017-07-09 08:52 | Clinical Documentation Query ---
DAVID Lazo : CLINICAL DOCUMENTATION QUERY Patient is an 87 year old female admitted for evaluation and treatment of AMS in the setting of recent illness, poor oral intake, and OTILIA on CKD stage 3. Seen in consultation by nephrology and surgery and began emergent HD. Additionally, UA indicative of UTI with culture growing E. Coli. She is being treated with IV Levaquin. Mental status improved with treatment of aforementioned conditions. In your clinical opinion is this patient being managed for: (X ) Metabolic/uremic encephalopathy secondary to OTILIA, POA, resolved ( ) Not Agree ( ) Other explanation of clinical findings (Please Explain) ( ) Unable to determine (Please Define) ( ) Need to Discuss The medical record reflects the following clinical findings, treatment, and risk factors. Clinical Indicators: As above Treatment: Nephrologic consultation, hemodialysis, serial chemistries, treatment of infection Risk Factors: OTILIA with ATN, UTI, age, gender Please clarify and document your clinical opinion in the progress notes and discharge summary. Terms such as "probable", "suspected", "likely", "questionable", "possible", or "still to be ruled out" are acceptable. IF IN AGREEMENT, YOU MUST DOCUMENT ABOVE DIAGNOSTIC STATEMENT IN DAILY PROGRESS NOTES AND DISCHARGE SUMMARY. This document is not part of the patient's record. Thank You, Primo Phelps RN [phone]
--- NOTE | 2017-07-09 09:10 | Progress Note ---
Progress Note Date of Service Jul 09, 2017. Progress Note Patient for permcath insertion today and removal of her temporary catheter. I have discussed the risks options and benefits of the procedure with the patient. The patient understands the risks options and benefits and agrees to the procedure. I have examined the patient, reviewed the History & Physical and in the interval since the performance of the History & Physical I have noted the following changes of clinical significance: No changes noted
[2017-07-09] MEDS ORDERED: EPOETIN ALFA 10,000 UNITS/ML VIAL IV. ONE (09:15)
[2017-07-09] MEDS ORDERED: EPOETIN ALFA INJ 7,000 UNITS in SYRINGE 0 ML IV. SCH (09:45)
[2017-07-09] MEDS ORDERED: HEPARIN SOD (PORCINE) 5000 UNIT/ML 1 ML VIAL ONE (10:38)
[2017-07-09] MEDS ORDERED: MIDAZOLAM HCL 1 MG/ML 2ML VIAL ONE (10:38)
[2017-07-09] MEDS ORDERED: FENTANYL CITRATE INJ 50 MCG/1 ML 2 ML VIAL ONE (10:38)
[2017-07-09] MEDS ORDERED: FENTANYL CITRATE INJ 50 MCG/1 ML 2 ML VIAL IV ONE (11:09)
--- NOTE | 2017-07-09 11:13 | Medical Student: [facility] ---
Med Student Progress Note Date of Service Jul 09, 2017. Subjective Pt evaluation today including: conversation w/ patient, physical exam, chart review, lab review, review of studies, review of inpatient medication list Voiding: banda catheter in place 87 year old female with history of stage 3 CKD presenting with AMS. Found to have creatinine of 5.35 (baseline 1.3). Acute on chronic renal failure likely due to chronic NSAID use and dehydration. Seen by nephrology and started on dialysis. Also found to have UTI, culture shows pansensitive E.coli, treated with Levaquin. She is oriented x3 today and has no current complaints. Electrolytes are within acceptable ranges. She was hyperkalemic on admission, but corrected, no changes on EKG. Review of Systems Constitutional: No fever, No chills Respiratory: No cough, No shortness of breath Cardiac: + chest pain (mild), No edema Abdomen: No pain, No nausea, No vomiting, No diarrhea Female : + incontinence, No dysuria Skin: No rash All Other Systems: Reviewed and Negative Objective Vital Signs Date Time Temp Pulse Resp B/P (MAP) Pulse Ox O2 Delivery O2 Flow Rate FiO2 07/09/17 10:46 36.4 73 16 151/78 93 Room Air 6.0 93 07/09/17 08:00 Room Air 07/09/17 07:50 36.4 73 16 151/78 (102) 93 07/09/17 07:45 95 15 Room Air 93 07/09/17 07:07 36.4 66 20 172/84 92 Room Air 07/09/17 04:00 Room Air 07/09/17 03:20 36.4 66 20 172/84 (113) 92 07/09/17 00:00 Room Air 07/08/17 23:45 36.7 77 20 178/91 (120) 90 07/08/17 20:00 Room Air 07/08/17 19:39 36.7 69 18 174/82 (112) 92 Room Air 07/08/17 16:15 Room Air 07/08/17 15:19 36.5 70 18 176/84 (114) 90 Room Air 07/08/17 11:23 Room Air 07/08/17 11:21 36.7 73 18 175/91 (119) 92 Room Air Physical Exam General Appearance: WD/WN, no apparent distress Eyes: bilateral eyes normal inspection ENT: hearing grossly normal Respiratory/Chest: chest non-tender, lungs clear, normal breath sounds, no respiratory distress, no accessory muscle use Cardiovascular: regular rate, rhythm, no edema, no gallop, no JVD, no murmur Abdomen: normal bowel sounds, non tender, soft, no organomegaly Extremities: normal inspection, no pedal edema, no calf tenderness, + pertinent finding (Catheter for dialysis in right groin. No swelling, no erythema, no drainage.) Neurologic/Psychiatric: alert, normal mood/affect, oriented x 3 Skin: warm/dry, no rash Laboratory Results Last 24 Hours Test 07/09/17 05:46 White Blood Count 9.94 K/uL Red Blood Count 3.69 M/uL Hemoglobin 10.3 g/dL Hematocrit 30.8 % Mean Corpuscular Volume 83.5 fL Mean Corpuscular Hemoglobin 27.9 pg Mean Corpuscular Hemoglobin Concent 33.4 g/dl Platelet Count 201 K/uL Mean Platelet Volume 9.5 fL Neutrophils (%) (Auto) 77.9 % Lymphocytes (%) (Auto) 13.6 % Monocytes (%) (Auto) 7.4 % Eosinophils (%) (Auto) 0.3 % Basophils (%) (Auto) 0.0 % Neutrophils # (Auto) 7.74 K/uL Lymphocytes # (Auto) 1.35 K/uL Monocytes # (Auto) 0.74 K/uL Eosinophils # (Auto) 0.03 K/uL Basophils # (Auto) 0.00 K/uL RDW Standard Deviation 45.2 fL RDW Coefficient of Variation 14.7 % Immature Granulocyte % (Auto) 0.8 % Immature Granulocyte # (Auto) 0.08 K/uL Sodium Level 134 mmol/L Potassium Level 3.8 mmol/L Chloride Level 99 mmol/L Carbon Dioxide Level 26 mmol/L Anion Gap 9.0 mmol/L Blood Urea Nitrogen 59 mg/dl Creatinine 3.28 mg/dl Est Creatinine Clear Calc Drug Dose 11.6 ml/min Estimated GFR () 14.2 Estimated GFR (Non- 12.2 BUN/Creatinine Ratio 18.0 Random Glucose 107 mg/dl Calcium Level 7.9 mg/dl Phosphorus Level 5.2 mg/dl Magnesium Level 2.0 mg/dl Medications Current Inpatient Medications Medications (Trade) Dose Ordered Sig/Niraj Route Start Time Stop Time Status Last Admin Dose Admin Metoprolol Succinate (Toprol Xl Tab) 50 mg QAM PO 07/06/17 09:00 08/05/17 08:59 07/09/17 08:21 50 MG Metoprolol Succinate (Toprol Xl Tab) 25 mg QPM PO 07/06/17 21:00 08/05/17 20:59 07/08/17 20:09 25 MG Pravastatin Sodium (Pravachol Tab) 20 mg HS PO 07/06/17 21:00 08/05/17 20:59 07/08/17 20:08 20 MG Sertraline HCl (Zoloft Tab) 50 mg DAILY PO 07/06/17 09:00 08/05/17 08:59 07/09/17 08:21 50 MG Tamsulosin HCl (Flomax Cap) 0.4 mg DAILY PO 07/06/17 09:00 08/05/17 08:59 07/09/17 08:21 0.4 MG Tramadol HCl (Ultram Tab) 100 mg BID PO 07/06/17 09:00 08/05/17 08:59 07/09/17 08:21 100 MG Heparin Sodium (Porcine) (Heparin Sq 5000 Unit/0.5ml) 5,000 unit Q8H SQ 07/06/17 08:00 08/05/17 07:59 07/08/17 16:27 5,000 UNIT Acetaminophen (Tylenol Tab) 650 mg Q4H PRN PO 07/06/17 03:45 08/05/17 03:44 Al Hydrox/Mg Hydrox/Simethicone (Maalox Max Susp) 15 ml Q4H PRN PO 07/06/17 03:45 08/05/17 03:44 Magnesium Hydroxide (Milk Of Magnesia Susp) 30 ml Q6H PRN PO 07/06/17 03:45 08/05/17 03:44 Polyethylene (Miralax Powder Packet) 17 gm DAILY PRN PO 07/06/17 03:45 08/05/17 03:44 Ondansetron HCl (Zofran Inj) 4 mg Q6H PRN IV 07/06/17 03:45 08/05/17 03:44 07/08/17 22:21 4 MG Levofloxacin (Consult) 1 ea UD PRN N/A 07/06/17 17:15 08/05/17 17:14 Levofloxacin 500 mg/Prmx 100 ml @ 100 mls/hr Q48H IV 07/08/17 08:00 07/18/17 07:59 07/08/17 11:43 100 MLS/HR Calcium Carbonate (Tums Chew Tab) 500 mg AC PO 07/07/17 11:00 08/06/17 10:59 07/09/17 06:25 500 MG Albuterol Sulfate (Ventolin 0.083% 2.5MG/3ML Neb) 2.5 mg Q4 INH 07/07/17 16:15 08/06/17 16:14 07/09/17 07:43 2.5 MG Albuterol Sulfate (Ventolin 0.083% 2.5MG/3ML Neb) 2.5 mg Q2H PRN INH 07/07/17 16:15 08/06/17 16:14 Epoetin Lew 7000 units/Syringe 0.35 ml @ 1 mls/min 0945 IV. 07/09/17 09:45 07/09/17 13:59 Assessment and Plan Problems Acute renal failure Delirium Hyperkalemia Urinary retention Assessment and Plan: Assessment: 87 year old female with acute on chronic renal failure started on dialysis with concomitant electrolyte abnormalities, UTI and hypertension. Plan: 1. Acute on Chronic Renal Failure: Nephrology has been consulted. Started first time dialysis on 07/07 and 07/08. Electrolytes have normalized to acceptable ranges. Acute exacerbation likely from chronic NSAID use and dehydration. Creatinine now 3.28 down from 5.35 on admission. Baseline creatinine is 1.3 (). Continue following with nephrology. 2. UTI: Ecoli pansensitive, continue Levaquin. 3. Incontinence: Banda catheter and flomax. 4. Hyperkalemia: corrected, K+ is 3.8. BMP q12 5. Hypertension: continue metoprolol. 6. Hypocalcemia: Increased PTH, 25OH vit D 32, likely due to kidney failure. Consider Vit D replacement. Disposition: Continue to follow neprology recommendations. Will likely discharge with outpatient dialysis. Continued [facility] stay due to: multiple IV medications needed Discharge planning: uncertain
[2017-07-09] MEDS ORDERED: MIDAZOLAM HCL 1 MG/ML 2ML VIAL IV ONE (11:14)
--- NOTE | 2017-07-09 11:14 | Nephrology Progress Note ---
Nephrology Progress Note Date of Service Jul 09, 2017. Chief Complaint Acute on CKD Subjective Ms. Worrell was seen & examined in the PCU this morning. She was alert and oriented to self, place and month. Ms. Worrell denied fever, angina, dyspnea or uremic symptoms. She understood that she has kidney failure and requires HD. We discussed the indications/benefits/risks/alternatives to IJ THC. She voiced understanding and is agreeable to IJ THC insertion w/ removal of temporary femoral dialysis catheter. Review of Systems Constitutional: No fever Cardiovascular: No chest pain Respiratory: No dyspnea at rest Abdomen: No pain, No nausea, No vomiting Extremities: No leg edema A complete review of systems was performed. Pertinent positives are noted above. All other systems are negative. Vital Signs Last 8 Hrs Date Time Temp Pulse Resp B/P (MAP) Pulse Ox O2 Delivery O2 Flow Rate FiO2 07/09/17 10:46 36.4 73 16 151/78 93 Room Air 6.0 93 07/09/17 08:00 Room Air 07/09/17 07:50 36.4 73 16 151/78 (102) 93 07/09/17 07:45 95 15 Room Air 93 07/09/17 07:07 36.4 66 20 172/84 92 Room Air 07/09/17 04:00 Room Air 07/09/17 03:20 36.4 66 20 172/84 (113) 92 Last Recorded Weight Weight (Kilograms): 81.300 Physical Exam General Appearance: no apparent distress Head: normocephalic, atraumatic Eyes: PERRL, EOMI Neck: no adenopathy Respiratory/Chest: lungs clear, no respiratory distress Cardiovascular: regular rate, rhythm Abdomen/GI: normal bowel sounds, non tender, soft Extremities/Musculoskelatal: no calf tenderness, no pedal edema Neurologic/Psych: alert, oriented x 3 Family History Diabetes mellitus Heart disease Hypertension Social History Drug Use: none Occupation: retired Laboratory Results Past 24 Hours 07/09/17 05:46 Red Blood Count 3.69, Mean Corpuscular Volume 83.5, Mean Corpuscular Hemoglobin 27.9, Mean Corpuscular Hemoglobin Concent 33.4, Mean Platelet Volume 9.5, Neutrophils (%) (Auto) 77.9, Lymphocytes (%) (Auto) 13.6, Monocytes (%) (Auto) 7.4, Eosinophils (%) (Auto) 0.3, Basophils (%) (Auto) 0.0, Neutrophils # (Auto) 7.74, Lymphocytes # (Auto) 1.35, Monocytes # (Auto) 0.74, Eosinophils # (Auto) 0.03, Basophils # (Auto) 0.00 07/09/17 05:46 Test 07/09/17 05:46 White Blood Count 9.94 K/uL (4.8-10.8) Red Blood Count 3.69 M/uL (4.2-5.4) Hemoglobin 10.3 g/dL (12.0-16.0) Hematocrit 30.8 % (37-47) Mean Corpuscular Volume 83.5 fL (80-100) Mean Corpuscular Hemoglobin 27.9 pg (25-34) Mean Corpuscular Hemoglobin Concent 33.4 g/dl (32-36) Platelet Count 201 K/uL (130-400) Mean Platelet Volume 9.5 fL (7.4-10.4) Neutrophils (%) (Auto) 77.9 % Lymphocytes (%) (Auto) 13.6 % Monocytes (%) (Auto) 7.4 % Eosinophils (%) (Auto) 0.3 % Basophils (%) (Auto) 0.0 % Neutrophils # (Auto) 7.74 K/uL (1.4-6.5) Lymphocytes # (Auto) 1.35 K/uL (1.2-3.4) Monocytes # (Auto) 0.74 K/uL (0.11-0.59) Eosinophils # (Auto) 0.03 K/uL (0-0.5) Basophils # (Auto) 0.00 K/uL (0-0.2) RDW Standard Deviation 45.2 fL (36.4-46.3) RDW Coefficient of Variation 14.7 % (11.5-14.5) Immature Granulocyte % (Auto) 0.8 % Immature Granulocyte # (Auto) 0.08 K/uL (0.00-0.02) Anion Gap 9.0 mmol/L (3-11) Est Creatinine Clear Calc Drug Dose 11.6 ml/min Estimated GFR () 14.2 Estimated GFR (Non- 12.2 BUN/Creatinine Ratio 18.0 (10-20) Calcium Level 7.9 mg/dl (8.5-10.1) Phosphorus Level 5.2 mg/dl (2.5-4.9) Magnesium Level 2.0 mg/dl (1.8-2.4) Allergies Coded Allergies: Solifenacin (Verified Allergy, Intermediate, HIVES, 07/06/17) Codeine (Verified Adverse Reaction, Intermediate, DIZZINESS, 07/06/17) Medications Current Inpatient Medications Medications (Trade) Dose Ordered Sig/Niraj Route Start Time Stop Time Status Last Admin Dose Admin Metoprolol Succinate (Toprol Xl Tab) 50 mg QAM PO 07/06/17 09:00 08/05/17 08:59 07/09/17 08:21 50 MG Metoprolol Succinate (Toprol Xl Tab) 25 mg QPM PO 07/06/17 21:00 08/05/17 20:59 07/08/17 20:09 25 MG Pravastatin Sodium (Pravachol Tab) 20 mg HS PO 07/06/17 21:00 08/05/17 20:59 07/08/17 20:08 20 MG Sertraline HCl (Zoloft Tab) 50 mg DAILY PO 07/06/17 09:00 08/05/17 08:59 07/09/17 08:21 50 MG Tamsulosin HCl (Flomax Cap) 0.4 mg DAILY PO 07/06/17 09:00 08/05/17 08:59 07/09/17 08:21 0.4 MG Tramadol HCl (Ultram Tab) 100 mg BID PO 07/06/17 09:00 08/05/17 08:59 07/09/17 08:21 100 MG Heparin Sodium (Porcine) (Heparin Sq 5000 Unit/0.5ml) 5,000 unit Q8H SQ 07/06/17 08:00 08/05/17 07:59 07/08/17 16:27 5,000 UNIT Acetaminophen (Tylenol Tab) 650 mg Q4H PRN PO 07/06/17 03:45 08/05/17 03:44 Al Hydrox/Mg Hydrox/Simethicone (Maalox Max Susp) 15 ml Q4H PRN PO 07/06/17 03:45 08/05/17 03:44 Magnesium Hydroxide (Milk Of Magnesia Susp) 30 ml Q6H PRN PO 07/06/17 03:45 08/05/17 03:44 Polyethylene (Miralax Powder Packet) 17 gm DAILY PRN PO 07/06/17 03:45 08/05/17 03:44 Ondansetron HCl (Zofran Inj) 4 mg Q6H PRN IV 07/06/17 03:45 08/05/17 03:44 07/08/17 22:21 4 MG Levofloxacin (Consult) 1 ea UD PRN N/A 07/06/17 17:15 08/05/17 17:14 Levofloxacin 500 mg/Prmx 100 ml @ 100 mls/hr Q48H IV 07/08/17 08:00 07/18/17 07:59 07/08/17 11:43 100 MLS/HR Calcium Carbonate (Tums Chew Tab) 500 mg AC PO 07/07/17 11:00 08/06/17 10:59 07/09/17 06:25 500 MG Albuterol Sulfate (Ventolin 0.083% 2.5MG/3ML Neb) 2.5 mg Q4 INH 07/07/17 16:15 08/06/17 16:14 07/09/17 07:43 2.5 MG Albuterol Sulfate (Ventolin 0.083% 2.5MG/3ML Neb) 2.5 mg Q2H PRN INH 07/07/17 16:15 08/06/17 16:14 Epoetin Lew 7000 units/Syringe 0.35 ml @ 1 mls/min 0945 IV. 07/09/17 09:45 07/09/17 13:59 Impression (1) Acute renal failure (2) Delirium (3) Hyperkalemia (4) Metabolic acidosis (5) Oliguria (6) HTN (hypertension) (7) Proteinuria (8) Hematuria Ms. Worrell is a 87-year-old female with past medical history of hypertension and stage 3 chronic kidney disease admitted to the hospital with change in mental status, overall declining health, poor p.o. intake over last few weeks and found to have acute kidney injury and significant electrolyte abnormality. On admission creatinine was 5.8 with her baseline creatinine 1.3-1.4. Renal ultrasound unremarkable for postrenal obstruction. Vital sign has been stable. Patient was diagnosed w/ E coli UTI and is currently on Levaquin. Acute kidney injury could be secondary to hemodynamically mediated ATN with poor p.o. intake and taking NSAID regularly, however cannot exclude possibility for acute glomerular and nephritis at this point including anti-GBM or ANCA vasculitis considering proteinuria and hematuria on urinalysis. Serology pending, started on dialysis on 07/06/2017 for significant electrolyte abnormality. Had 3 hours of dialysis each on Sunday and Sunday. Recommendations ACUTE KIDNEY INJURY: -- Likely ATN due to volume depletion in the setting of UTI and NSAID therapy -- Renal US report 07/06: kidneys ~ 9 cm w/ cortical atrophy. No hydro. No stones -- Awaiting results of vasculitis evaluation -- Will recheck urine sediment. Patient has had hematuria while banda catheter has been in place -- Patient remains oliguric. Creatinine continues to rise in between dialysis treatments. No evidence of renal recovery at this time -- Patient scheduled for IJ THC today and removal of temporary femoral dialysis catheter -- Will provide 2 hours HD today, no UF and then monitor UO and kidney function for signs of recovery -- Will ask social service to set up outpatient dialysis at [facility] -- Patient requested that I speak w/ her son Darryl Worrell (phone [phone]) and provide an update. I have called twice. Each time telephone connected but individual then hung up. CHRONIC KIDNEY DISEASE: -- Baseline creatinine 1.4 HYPERTENSION: -- Mild HTN. Continue Metoprolol. 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 Coli UTI currently on Levaquin
[2017-07-09] MEDS ORDERED: LIDOCAINE HCL 1% 20 ML VIAL INJ ONE (11:15)
--- NOTE | 2017-07-09 11:19 | Hospitalist Progress Note ---
Hospitalist Progress Note Date of Service Jul 09, 2017. (Stacey Deras ., JONAS) Subjective Pt evaluation today including: conversation w/ patient, physical exam, lab review, review of studies, review of inpatient medication list Voiding: banda catheter in place Patient sitting up in bed. Alert/oriented x3. NPO for procedure by Dr. Horne today- denied any questions/concerns. Patient denies any fever, chills, sweats, lightheadedness, dizziness, vision changes, CP, palpitations, edema, SOB, wheezing, cough, abdominal pain, nausea, vomiting, diarrhea, urinary symptoms, melena, numbness/tingling, weakness, muscle/joint pain, anxiety/depression, active bleeding, or new skin discoloration/changes. (Stacey Deras ., CRISTÓBALC) Medications Current Inpatient Medications Medications (Trade) Dose Ordered Sig/Niraj Route Start Time Stop Time Status Last Admin Dose Admin Metoprolol Succinate (Toprol Xl Tab) 50 mg QAM PO 07/06/17 09:00 08/05/17 08:59 07/09/17 08:21 50 MG Metoprolol Succinate (Toprol Xl Tab) 25 mg QPM PO 07/06/17 21:00 08/05/17 20:59 07/08/17 20:09 25 MG Pravastatin Sodium (Pravachol Tab) 20 mg HS PO 07/06/17 21:00 08/05/17 20:59 07/08/17 20:08 20 MG Sertraline HCl (Zoloft Tab) 50 mg DAILY PO 07/06/17 09:00 08/05/17 08:59 07/09/17 08:21 50 MG Tamsulosin HCl (Flomax Cap) 0.4 mg DAILY PO 07/06/17 09:00 08/05/17 08:59 07/09/17 08:21 0.4 MG Tramadol HCl (Ultram Tab) 100 mg BID PO 07/06/17 09:00 08/05/17 08:59 07/09/17 08:21 100 MG Heparin Sodium (Porcine) (Heparin Sq 5000 Unit/0.5ml) 5,000 unit Q8H SQ 07/06/17 08:00 08/05/17 07:59 07/08/17 16:27 5,000 UNIT Acetaminophen (Tylenol Tab) 650 mg Q4H PRN PO 07/06/17 03:45 08/05/17 03:44 Al Hydrox/Mg Hydrox/Simethicone (Maalox Max Susp) 15 ml Q4H PRN PO 07/06/17 03:45 08/05/17 03:44 Magnesium Hydroxide (Milk Of Magnesia Susp) 30 ml Q6H PRN PO 07/06/17 03:45 08/05/17 03:44 Polyethylene (Miralax Powder Packet) 17 gm DAILY PRN PO 07/06/17 03:45 08/05/17 03:44 Ondansetron HCl (Zofran Inj) 4 mg Q6H PRN IV 07/06/17 03:45 08/05/17 03:44 07/08/17 22:21 4 MG Levofloxacin (Consult) 1 ea UD PRN N/A 07/06/17 17:15 08/05/17 17:14 Levofloxacin 500 mg/Prmx 100 ml @ 100 mls/hr Q48H IV 07/08/17 08:00 07/18/17 07:59 07/08/17 11:43 100 MLS/HR Calcium Carbonate (Tums Chew Tab) 500 mg AC PO 07/07/17 11:00 08/06/17 10:59 07/09/17 06:25 500 MG Albuterol Sulfate (Ventolin 0.083% 2.5MG/3ML Neb) 2.5 mg Q4 INH 07/07/17 16:15 08/06/17 16:14 07/09/17 07:43 2.5 MG Albuterol Sulfate (Ventolin 0.083% 2.5MG/3ML Neb) 2.5 mg Q2H PRN INH 07/07/17 16:15 08/06/17 16:14 Epoetin Lew 7000 units/Syringe 0.35 ml @ 1 mls/min 0945 IV. 07/09/17 09:45 07/09/17 13:59 (Stacey Deras PA-C) Objective Vital Signs Date Time Temp Pulse Resp B/P (MAP) Pulse Ox O2 Delivery O2 Flow Rate FiO2 07/09/17 10:46 36.4 73 16 151/78 93 Room Air 6.0 93 07/09/17 08:00 Room Air 07/09/17 07:50 36.4 73 16 151/78 (102) 93 07/09/17 07:45 95 15 Room Air 93 07/09/17 07:07 36.4 66 20 172/84 92 Room Air 07/09/17 04:00 Room Air 07/09/17 03:20 36.4 66 20 172/84 (113) 92 07/09/17 00:00 Room Air 07/08/17 23:45 36.7 77 20 178/91 (120) 90 07/08/17 20:00 Room Air 07/08/17 19:39 36.7 69 18 174/82 (112) 92 Room Air 07/08/17 16:15 Room Air 07/08/17 15:19 36.5 70 18 176/84 (114) 90 Room Air 07/08/17 11:23 Room Air 07/08/17 11:21 36.7 73 18 175/91 (119) 92 Room Air (Stacey Deras, PA-C) Physical Exam General Appearance: no apparent distress, + obese Eyes: PERRL ENT: hearing grossly normal Neck: supple Respiratory/Chest: lungs clear, no respiratory distress, no accessory muscle use Cardiovascular: regular rate, rhythm Abdomen: normal bowel sounds, non tender, soft Extremities: no pedal edema, no calf tenderness Neurologic/Psychiatric: alert, normal mood/affect, oriented x 3 Skin: normal color, warm/dry, no rash (Stacey Deras ., PA-C) Laboratory Results Last 24 Hours Test 07/09/17 05:46 White Blood Count 9.94 K/uL Red Blood Count 3.69 M/uL Hemoglobin 10.3 g/dL Hematocrit 30.8 % Mean Corpuscular Volume 83.5 fL Mean Corpuscular Hemoglobin 27.9 pg Mean Corpuscular Hemoglobin Concent 33.4 g/dl Platelet Count 201 K/uL Mean Platelet Volume 9.5 fL Neutrophils (%) (Auto) 77.9 % Lymphocytes (%) (Auto) 13.6 % Monocytes (%) (Auto) 7.4 % Eosinophils (%) (Auto) 0.3 % Basophils (%) (Auto) 0.0 % Neutrophils # (Auto) 7.74 K/uL Lymphocytes # (Auto) 1.35 K/uL Monocytes # (Auto) 0.74 K/uL Eosinophils # (Auto) 0.03 K/uL Basophils # (Auto) 0.00 K/uL RDW Standard Deviation 45.2 fL RDW Coefficient of Variation 14.7 % Immature Granulocyte % (Auto) 0.8 % Immature Granulocyte # (Auto) 0.08 K/uL Sodium Level 134 mmol/L Potassium Level 3.8 mmol/L Chloride Level 99 mmol/L Carbon Dioxide Level 26 mmol/L Anion Gap 9.0 mmol/L Blood Urea Nitrogen 59 mg/dl Creatinine 3.28 mg/dl Est Creatinine Clear Calc Drug Dose 11.6 ml/min Estimated GFR () 14.2 Estimated GFR (Non- 12.2 BUN/Creatinine Ratio 18.0 Random Glucose 107 mg/dl Calcium Level 7.9 mg/dl Phosphorus Level 5.2 mg/dl Magnesium Level 2.0 mg/dl (Stacey Deras ., PA-C) Assessment and Plan 87 y/o F Hx HTN, urinary incontinence. The pt has exhibited progressive confusion over the last few days. She was brought to her primary MD by her son. Labs were obtained and a markedly elevated BUN/creat was noted. She was instructed to attend the hospital therefore. She is unable to provide a meaningful history. Her son is present at bedside and denies that she had complained of additional symptoms such as fevers/rigors, n/v/d or dysuria although she is chronically incontinent. AMS, secondary to OTILIA on CKD stage III, likely secondary to ATN: - Admitted to tele for cardiac monitoring - Treated w/ IVF - Emergent access and dialysis started on 07/06- planning for PermCath insertion by Dr. Horne today for continued dialysis - Renal US- no hydro/obstruction - Renally dose medications as appropriate and avoid nephrotoxic agents - Nephrology following UTI- UCx growing E.coli: Levaquin- started on 07/08 Hyperphosphatemia: - Tums TID - Follow phosphate level Hyperkalemia- RESOLVED: Treated w/ Kayexalate and IVF HTN: Metoprolol 25 mg HS and 50 mg QAM w/ hold parameters HLD: Pravastatin 20 mg HS Incontinence: Continue Flomax 0.4 mg HS DVT prophylaxis: Heparin SQ TID Code Status: LEVEL I, FULL Dispo: Recommend rehab at discharge- PT/OT and CM following (Stacey Deras, PA-C) I agree with PA assessment and plan and have seen and examined pt myself Resting comfortably in bed No distress noted Delirium resolved VSS Labs reviewed Cr worsening Appreciate nephro recs Renal recovery not observed Monitor urine output Will likely need continued dialysis and TDC placement (Nabeel Clements D.O.)
--- NOTE | 2017-07-09 11:31 | [facility] Post Operative Brief Note ---
Immediate Operative Summary Operative Date Jul 09, 2017. Pre-Operative Diagnosis Acute Renal Failure Post-Operative Diagnosis Same Procedure(s) Performed nsertion Of Perm Catheter, Right Jugular Approach Ultrasound Localization of Right Jugular Vein Fluoroscopy for Positioning Moderate Sedation [id number] Surgeon Ozzie Patient Monitor Surgeon(s) Alycia Estimated Blood Loss 5 Findings tip in distal SVC Specimens none Anesthesia Local with sedation Complication(s) None Disposition
[2017-07-09] MEDS ORDERED: HEPARIN SOD (PORCINE) 5000 UNIT/ML 1 ML VIAL IV ONE (11:41)
--- NOTE | 2017-07-09 11:47 | [facility] Operative Report ---
Operative Report Operative Date Jul 09, 2017. Pre-Operative Diagnosis Acute Renal Failure Post-Operative Diagnosis Same Procedure(s) Performed Insertion Of Perm Catheter, Right Jugular Approach Ultrasound Localization of Right Jugular Vein Fluoroscopy for Positioning Moderate Sedation [id number] Surgeon Ozzie [employer] Surgeon(s) Alycia Estimated Blood Loss 5 Findings Perm Cath tip in SVC Specimens none Drains 19 cm Tunnelled Perm cath in R IJ Anesthesia Local with sedation Complication(s) None Disposition Indications ESRD in need of dialysis access Description of Procedure Patient was takent to the angio suite and placed in the supine position. The right side of the neck and chest wall were prepped and draped in a sterile manner. Local anesthesia was then administered to the appropriate areas of the neck and chest wall. Ultrasound was then used to locate the right internal jugular v ein. The vein compressed easily, had no filing defects, and was patent. The vein was then punctured under direct ultrasound imaging. A guidewire was then passed centrally under fluoroscopic imaging. A stab wound was then made in the anterior chest wall and a 19 cm permcath was passed from the stab wound on the chest wall to the puncture site on the neck. The puncture site was then dilated till the 14Fr peel away sheath was inserted. The permcath was then inserted through the sheath to a central position in the distal superior vena cava. The peel away sheath was then removed. The catheter was then sutured in place using nylon sutures. The puncture was then closed using a 4-0 Vicryl subcuticular suture. Dermabond was used for a dressing on the puncture site. Both ports aspirated and flushed easily and were then packed with heparin. A sterile dressing was applied to the catheter. The patient left the angio suite in good condition and tolerated the procedure well. Attention was turned to the right femoral temporary HD catheter. Sutures were removed and catheter was pulled. Pressure was held and hemostasis was obtained. I, Dr. Horne was present and scrubbed for the entire procedure. I attest to the content of the Intraoperative Record and any orders documented therein. Any exceptions are noted below.
[2017-07-09] MEDS: HEPARIN SOD 5000 UNIT/0.5 ML CARP SQ SCH ×3 (14:39→23:27)
[2017-07-09] MEDS: PRAVASTATIN SOD 20 MG TAB PO SCH (19:58)
[2017-07-10] VITALS (7 sets, daily range): BP systolic 158–166; BP diastolic 75–83; PULSE 67–89; TEMP 36.5–36.9; O2SAT 90–96
[2017-07-10] MEDS: ALBUTEROL 0.083% NEBU SOLN 3 ML VIAL INH SCH ×2 (03:16→07:26)
[2017-07-10 06:46] LABS: BASO % 0.1 %; BASO ABS # 0.01 K/uL (0-0.2); COMPLETE YES; EOS % 0.6 %; HEMATOCRIT 31.5 % (37-47); IG% 1.5 %; LYMPH % 16.5 %; LYMPH ABS # 1.57 K/uL (1.2-3.4); MEAN CELL VOLUME 85.8 fL (80-100); MEAN CORPUSCULAR HGB CONC 31.4 g/dl (32-36); MEAN PLATELET VOLUME 9.8 fL (7.4-10.4); MONO % 8.5 %; NEUT % 72.8 %; PLATELET COUNT 175 K/uL (130-400); RED BLOOD COUNT 3.67 M/uL (4.2-5.4); WHITE BLOOD COUNT 9.49 K/uL (4.8-10.8)
[2017-07-10 07:19] LABS: BLOOD UREA NITROGEN 43 mg/dl (7-18); BUN/CREATININE RATIO 16.2 (10-20); CALCIUM 8.1 mg/dl (8.5-10.1); CARBON DIOXIDE 25 mmol/L (21-32); CHLORIDE 103 mmol/L (98-107); CREATININE 2.63 mg/dl (0.60-1.20); GLUCOSE 103 mg/dl (70-99); PHOSPHORUS 4.3 mg/dl (2.5-4.9); SODIUM 135 mmol/L (136-145)
[2017-07-10] MEDS: CALCIUM CARBONATE 500 MG CHEWABLE PO SCH ×3 (07:19→16:59)
[2017-07-10] MEDS: TRAMADOL HCL 50 MG TAB PO SCH ×2 (07:59→20:06)
[2017-07-10] MEDS: SERTRALINE HCL 50 MG TAB PO SCH (07:59)
[2017-07-10] MEDS: LEVOFLOXACIN 500MG / D5W IV SCH (07:59)
[2017-07-10] MEDS: METOPROLOL SUCC 25MG EXT REL TAB PO SCH ×2 (07:59→20:07)
[2017-07-10] MEDS: TAMSULOSIN HCL 0.4 MG CAP PO SCH (07:59)
[2017-07-10] MEDS: HEPARIN SOD 5000 UNIT/0.5 ML CARP SQ SCH ×3 (08:00→21:40)
--- NOTE | 2017-07-10 09:44 | Nephrology Progress Note ---
Nephrology Progress Note Date of Service Jul 10, 2017. Chief Complaint Acute on CKD Subjective Ms. Worrell was seen & examined in the PCU this morning. She last dialyzed yesterday for 2 hours without complication. No UF was performed. IJ THC functioned well. R femoral dialysis catheter has been removed. Banda catheter remains in place draining clear yellow urine. Ms. Worrell voices no new medical concerns. Review of Systems Constitutional: No fever Cardiovascular: No chest pain Respiratory: No dyspnea at rest Abdomen: No pain, No nausea Extremities: No leg edema A complete review of systems was performed. Pertinent positives are noted above. All other systems are negative. Vital Signs Last 8 Hrs Date Time Temp Pulse Resp B/P (MAP) Pulse Ox O2 Delivery O2 Flow Rate FiO2 07/10/17 08:00 Room Air 07/10/17 07:37 36.6 86 18 166/78 (107) 93 07/10/17 07:29 72 16 Room Air 91 07/10/17 04:00 Room Air 07/10/17 03:48 36.5 69 20 158/79 (105) 92 Room Air Last Recorded Weight Weight (Kilograms): 80.500 Physical Exam General Appearance: no apparent distress Head: normocephalic, atraumatic Eyes: PERRL, EOMI Neck: no adenopathy Respiratory/Chest: lungs clear, no respiratory distress Cardiovascular: regular rate, rhythm Abdomen/GI: normal bowel sounds, non tender, soft Genitourinary - Female: + pertinent finding (banda catheter in place) Extremities/Musculoskelatal: no pedal edema Neurologic/Psych: alert, oriented x 3 Family History Diabetes mellitus Heart disease Hypertension Social History Drug Use: none Occupation: retired Laboratory Results Past 24 Hours 07/10/17 06:16 Red Blood Count 3.67, Mean Corpuscular Volume 85.8, Mean Corpuscular Hemoglobin 27.0, Mean Corpuscular Hemoglobin Concent 31.4, Mean Platelet Volume 9.8, Neutrophils (%) (Auto) 72.8, Lymphocytes (%) (Auto) 16.5, Monocytes (%) (Auto) 8.5, Eosinophils (%) (Auto) 0.6, Basophils (%) (Auto) 0.1, Neutrophils # (Auto) 6.90, Lymphocytes # (Auto) 1.57, Monocytes # (Auto) 0.81, Eosinophils # (Auto) 0.06, Basophils # (Auto) 0.01 07/10/17 06:16 07/10/17 07:24 Test 07/10/17 06:16 White Blood Count 9.49 K/uL (4.8-10.8) Red Blood Count 3.67 M/uL (4.2-5.4) Hemoglobin 9.9 g/dL (12.0-16.0) Hematocrit 31.5 % (37-47) Mean Corpuscular Volume 85.8 fL (80-100) Mean Corpuscular Hemoglobin 27.0 pg (25-34) Mean Corpuscular Hemoglobin Concent 31.4 g/dl (32-36) Platelet Count 175 K/uL (130-400) Mean Platelet Volume 9.8 fL (7.4-10.4) Neutrophils (%) (Auto) 72.8 % Lymphocytes (%) (Auto) 16.5 % Monocytes (%) (Auto) 8.5 % Eosinophils (%) (Auto) 0.6 % Basophils (%) (Auto) 0.1 % Neutrophils # (Auto) 6.90 K/uL (1.4-6.5) Lymphocytes # (Auto) 1.57 K/uL (1.2-3.4) Monocytes # (Auto) 0.81 K/uL (0.11-0.59) Eosinophils # (Auto) 0.06 K/uL (0-0.5) Basophils # (Auto) 0.01 K/uL (0-0.2) RDW Standard Deviation 47.3 fL (36.4-46.3) RDW Coefficient of Variation 14.9 % (11.5-14.5) Immature Granulocyte % (Auto) 1.5 % Immature Granulocyte # (Auto) 0.14 K/uL (0.00-0.02) Anion Gap 7.0 mmol/L (3-11) Est Creatinine Clear Calc Drug Dose 14.3 ml/min Estimated GFR () 18.5 Estimated GFR (Non- 15.9 BUN/Creatinine Ratio 16.2 (10-20) Calcium Level 8.1 mg/dl (8.5-10.1) Phosphorus Level 4.3 mg/dl (2.5-4.9) Allergies Coded Allergies: Solifenacin (Verified Allergy, Intermediate, HIVES, 07/06/17) Codeine (Verified Adverse Reaction, Intermediate, DIZZINESS, 07/06/17) Medications Current Inpatient Medications Medications (Trade) Dose Ordered Sig/Niraj Route Start Time Stop Time Status Last Admin Dose Admin Metoprolol Succinate (Toprol Xl Tab) 50 mg QAM PO 07/06/17 09:00 08/05/17 08:59 07/10/17 07:59 50 MG Metoprolol Succinate (Toprol Xl Tab) 25 mg QPM PO 07/06/17 21:00 08/05/17 20:59 07/09/17 19:58 25 MG Pravastatin Sodium (Pravachol Tab) 20 mg HS PO 07/06/17 21:00 08/05/17 20:59 07/09/17 19:58 20 MG Sertraline HCl (Zoloft Tab) 50 mg DAILY PO 07/06/17 09:00 08/05/17 08:59 07/10/17 07:59 50 MG Tamsulosin HCl (Flomax Cap) 0.4 mg DAILY PO 07/06/17 09:00 08/05/17 08:59 07/10/17 07:59 0.4 MG Tramadol HCl (Ultram Tab) 100 mg BID PO 07/06/17 09:00 08/05/17 08:59 07/10/17 07:59 100 MG Heparin Sodium (Porcine) (Heparin Sq 5000 Unit/0.5ml) 5,000 unit Q8H SQ 07/06/17 08:00 08/05/17 07:59 07/10/17 08:00 5,000 UNIT Acetaminophen (Tylenol Tab) 650 mg Q4H PRN PO 07/06/17 03:45 08/05/17 03:44 Al Hydrox/Mg Hydrox/Simethicone (Maalox Max Susp) 15 ml Q4H PRN PO 07/06/17 03:45 08/05/17 03:44 Magnesium Hydroxide (Milk Of Magnesia Susp) 30 ml Q6H PRN PO 07/06/17 03:45 08/05/17 03:44 Polyethylene (Miralax Powder Packet) 17 gm DAILY PRN PO 07/06/17 03:45 08/05/17 03:44 Ondansetron HCl (Zofran Inj) 4 mg Q6H PRN IV 07/06/17 03:45 08/05/17 03:44 07/08/17 22:21 4 MG Levofloxacin (Consult) 1 ea UD PRN N/A 07/06/17 17:15 08/05/17 17:14 Levofloxacin 500 mg/Prmx 100 ml @ 100 mls/hr Q48H IV 07/08/17 08:00 07/18/17 07:59 07/10/17 07:59 100 MLS/HR Calcium Carbonate (Tums Chew Tab) 500 mg AC PO 07/07/17 11:00 08/06/17 10:59 07/10/17 07:19 500 MG Albuterol Sulfate (Ventolin 0.083% 2.5MG/3ML Neb) 2.5 mg Q4 INH 07/07/17 16:15 08/06/17 16:14 07/10/17 07:26 2.5 MG Albuterol Sulfate (Ventolin 0.083% 2.5MG/3ML Neb) 2.5 mg Q2H PRN INH 07/07/17 16:15 08/06/17 16:14 Impression (1) Acute renal failure (2) Delirium (3) Hyperkalemia (4) Metabolic acidosis (5) Oliguria (6) HTN (hypertension) (7) Proteinuria (8) Hematuria Ms. Worrell is a 87-year-old female with past medical history of hypertension and stage 3 chronic kidney disease admitted to the hospital with change in mental status, overall declining health, poor p.o. intake over last few weeks and found to have acute kidney injury and significant electrolyte abnormality. On admission creatinine was 5.8 with her baseline creatinine 1.3-1.4. Renal ultrasound unremarkable for postrenal obstruction. Vital sign has been stable. Patient was diagnosed w/ E coli UTI and is currently on Levaquin. Acute kidney injury could be secondary to hemodynamically mediated ATN with poor p.o. intake and taking NSAID regularly, however cannot exclude possibility for acute glomerular and nephritis at this point including anti-GBM or ANCA vasculitis considering proteinuria and hematuria on urinalysis. Serology pending, started on dialysis on 07/06/2017 for significant electrolyte abnormality. Recommendations ACUTE KIDNEY INJURY: -- Likely ATN due to volume depletion in the setting of UTI and NSAID therapy -- Renal US report 07/06: kidneys ~ 9 cm w/ cortical atrophy. No hydro. No stones -- Awaiting results of vasculitis evaluation (pending as of 07/10) -- Will recheck urine sediment. Patient has had hematuria while banda catheter has been in place -- Urine output is mildly improved. Will continue to monitor for renal recovery -- Will reassess need for HD in am based upon UO and laboratory results -- Will ask social service to set up outpatient dialysis at [facility] CHRONIC KIDNEY DISEASE: -- Baseline creatinine 1.4 HYPERTENSION: -- Mild HTN. Continue Metoprolol. 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 Coli UTI currently on Levaquin OTHER: -- Recommend transfer to medical floor and physical therapy consultation for strengthening exercises.
--- NOTE | 2017-07-10 10:20 | Medical Student: [facility] ---
Med Student Progress Note Date of Service Jul 10, 2017. Subjective Pt evaluation today including: conversation w/ patient, physical exam, chart review, lab review, review of studies, review of inpatient medication list Voiding: banda catheter in place 87 year old female with history of stage 3 CKD presenting with AMS. Found to have creatinine of 5.35 (baseline 1.3). Acute on chronic renal failure likely due to chronic NSAID use and dehydration. Seen by nephrology and started on dialysis, IJ catheter placed. Also found to have UTI, culture shows pansensitive E.coli, treated with Levaquin. She is oriented x3 today and has no current complaints. Electrolytes are within acceptable ranges. Nephrology is setting her up with outpatient dialysis at [place]. Review of Systems Constitutional: No fever, No chills, No weakness Respiratory: No cough, No wheezing, No shortness of breath Cardiac: No chest pain, No edema, No palpitations Abdomen: No pain, No nausea, No vomiting, No diarrhea Female : + incontinence, No dysuria All Other Systems: Reviewed and Negative Objective Vital Signs Date Time Temp Pulse Resp B/P (MAP) Pulse Ox O2 Delivery O2 Flow Rate FiO2 07/10/17 08:00 Room Air 07/10/17 07:37 36.6 86 18 166/78 (107) 93 07/10/17 07:29 72 16 Room Air 91 07/10/17 04:00 Room Air 07/10/17 03:48 36.5 69 20 158/79 (105) 92 Room Air 07/10/17 00:01 36.9 72 18 160/81 (107) 90 Room Air 07/10/17 00:01 Room Air 07/09/17 20:00 Room Air 07/09/17 19:52 36.6 72 18 121/70 (87) 90 Room Air 07/09/17 18:55 73 16 Room Air 90 07/09/17 16:00 Room Air 07/09/17 15:39 36.4 67 18 140/65 (90) 94 Room Air 07/09/17 15:38 68 16 Room Air 94 07/09/17 14:25 36.6 66 148/72 (97) 07/09/17 14:00 71 111/62 07/09/17 13:46 70 113/57 07/09/17 13:30 69 118/66 07/09/17 13:15 67 107/72 07/09/17 13:00 75 116/66 07/09/17 12:45 65 110/60 07/09/17 12:30 68 125/70 07/09/17 12:13 67 143/70 07/09/17 12:00 36.8 68 119/75 (90) 07/09/17 12:00 Room Air 07/09/17 11:40 57 14 96 Mask 4 07/09/17 10:46 36.4 73 16 151/78 93 Room Air 6.0 93 Physical Exam General Appearance: WD/WN, no apparent distress Eyes: bilateral eyes normal inspection, bilateral eyes EOMI ENT: hearing grossly normal, pharynx normal Respiratory/Chest: chest non-tender, lungs clear, normal breath sounds, no respiratory distress, no accessory muscle use Cardiovascular: regular rate, rhythm, no edema, no gallop, no JVD, no murmur Abdomen: normal bowel sounds, non tender, soft, no organomegaly, no pulsatile mass Extremities: non-tender, normal inspection, no pedal edema, no calf tenderness Neurologic/Psychiatric: alert, normal mood/affect, oriented x 3 Skin: normal color, warm/dry, no rash Laboratory Results Last 24 Hours Test 07/10/17 06:16 07/10/17 07:24 White Blood Count 9.49 K/uL Red Blood Count 3.67 M/uL Hemoglobin 9.9 g/dL Hematocrit 31.5 % Mean Corpuscular Volume 85.8 fL Mean Corpuscular Hemoglobin 27.0 pg Mean Corpuscular Hemoglobin Concent 31.4 g/dl Platelet Count 175 K/uL Mean Platelet Volume 9.8 fL Neutrophils (%) (Auto) 72.8 % Lymphocytes (%) (Auto) 16.5 % Monocytes (%) (Auto) 8.5 % Eosinophils (%) (Auto) 0.6 % Basophils (%) (Auto) 0.1 % Neutrophils # (Auto) 6.90 K/uL Lymphocytes # (Auto) 1.57 K/uL Monocytes # (Auto) 0.81 K/uL Eosinophils # (Auto) 0.06 K/uL Basophils # (Auto) 0.01 K/uL RDW Standard Deviation 47.3 fL RDW Coefficient of Variation 14.9 % Immature Granulocyte % (Auto) 1.5 % Immature Granulocyte # (Auto) 0.14 K/uL Sodium Level 135 mmol/L Potassium Level mmol/L 4.2 mmol/L Chloride Level 103 mmol/L Carbon Dioxide Level 25 mmol/L Anion Gap 7.0 mmol/L Blood Urea Nitrogen 43 mg/dl Creatinine 2.63 mg/dl Est Creatinine Clear Calc Drug Dose 14.3 ml/min Estimated GFR () 18.5 Estimated GFR (Non- 15.9 BUN/Creatinine Ratio 16.2 Random Glucose 103 mg/dl Calcium Level 8.1 mg/dl Phosphorus Level 4.3 mg/dl Medications Current Inpatient Medications Medications (Trade) Dose Ordered Sig/Niraj Route Start Time Stop Time Status Last Admin Dose Admin Metoprolol Succinate (Toprol Xl Tab) 50 mg QAM PO 07/06/17 09:00 08/05/17 08:59 07/10/17 07:59 50 MG Metoprolol Succinate (Toprol Xl Tab) 25 mg QPM PO 07/06/17 21:00 08/05/17 20:59 07/09/17 19:58 25 MG Pravastatin Sodium (Pravachol Tab) 20 mg HS PO 07/06/17 21:00 08/05/17 20:59 07/09/17 19:58 20 MG Sertraline HCl (Zoloft Tab) 50 mg DAILY PO 07/06/17 09:00 08/05/17 08:59 07/10/17 07:59 50 MG Tamsulosin HCl (Flomax Cap) 0.4 mg DAILY PO 07/06/17 09:00 08/05/17 08:59 07/10/17 07:59 0.4 MG Tramadol HCl (Ultram Tab) 100 mg BID PO 07/06/17 09:00 08/05/17 08:59 07/10/17 07:59 100 MG Heparin Sodium (Porcine) (Heparin Sq 5000 Unit/0.5ml) 5,000 unit Q8H SQ 07/06/17 08:00 08/05/17 07:59 07/10/17 08:00 5,000 UNIT Acetaminophen (Tylenol Tab) 650 mg Q4H PRN PO 07/06/17 03:45 08/05/17 03:44 Al Hydrox/Mg Hydrox/Simethicone (Maalox Max Susp) 15 ml Q4H PRN PO 07/06/17 03:45 08/05/17 03:44 Magnesium Hydroxide (Milk Of Magnesia Susp) 30 ml Q6H PRN PO 07/06/17 03:45 08/05/17 03:44 Polyethylene (Miralax Powder Packet) 17 gm DAILY PRN PO 07/06/17 03:45 08/05/17 03:44 Ondansetron HCl (Zofran Inj) 4 mg Q6H PRN IV 07/06/17 03:45 08/05/17 03:44 07/08/17 22:21 4 MG Levofloxacin (Consult) 1 ea UD PRN N/A 07/06/17 17:15 08/05/17 17:14 Levofloxacin 500 mg/Prmx 100 ml @ 100 mls/hr Q48H IV 07/08/17 08:00 07/18/17 07:59 07/10/17 07:59 100 MLS/HR Calcium Carbonate (Tums Chew Tab) 500 mg AC PO 07/07/17 11:00 08/06/17 10:59 07/10/17 07:19 500 MG Albuterol Sulfate (Ventolin 0.083% 2.5MG/3ML Neb) 2.5 mg Q4 INH 07/07/17 16:15 08/06/17 16:14 07/10/17 07:26 2.5 MG Albuterol Sulfate (Ventolin 0.083% 2.5MG/3ML Neb) 2.5 mg Q2H PRN INH 07/07/17 16:15 08/06/17 16:14 Assessment and Plan Problems Acute renal failure Delirium Hyperkalemia Urinary retention Assessment and Plan: Assessment: 87 year old female with acute on chronic renal failure started on dialysis with concomitant electrolyte abnormalities, UTI and hypertension. Plan: 1. Acute on Chronic Renal Failure: Nephrology has been consulted. Started first time dialysis on 07/07, IJ catheter inserted yesterday, received dialysis through it yesterday. Electrolytes have normalized to acceptable ranges. Acute exacerbation likely from chronic NSAID use and dehydration. Creatinine now 2.63 down from 5.35 on admission. Baseline creatinine is 1.3 (03/28/17). Continue following with nephrology. Set up outpatient dialysis at [place]. Will likely discharge today. 2. UTI: Ecoli pansensitive, day 5 of IV Levaquin, discontinue after today. 3. Incontinence: Banda catheter and flomax. 4. Hyperkalemia: corrected, K+ is 4.2. BMP q12 5. Hypertension: continue metoprolol 25mg qPM, 50mg qAM.. 6. Hypocalcemia: Increased PTH, 25OH vit D 32, likely due to kidney failure. Improved with 500mg calcium carbonate as well as causing decreased Phosphorus into normal range. 7. Mild anemia: improved with EPO. Disposition: Will discharge with outpatient dialysis. Discharge planning: home
[2017-07-10] MEDS ORDERED: ALBUTEROL 0.083% NEBU SOLN 3 ML VIAL INH SCH (12:00)
--- NOTE | 2017-07-10 12:04 | Hospitalist Progress Note ---
Hospitalist Progress Note Date of Service Jul 10, 2017. (Stacey Deras ., CRISTÓBALC) Subjective Pt evaluation today including: conversation w/ patient, physical exam, lab review, review of inpatient medication list Voiding: banda catheter in place (draining clear/yellow urine ) Patient sitting up in bed. Eating and drinking OK. Tolerated dialysis/permcath placement well yesterday. Discussed rehab w/ patient- denied going- encouraged to work w/ PT today and will re-discuss. Patient denies any fever, chills, sweats, lightheadedness, dizziness, vision changes, CP, palpitations, edema, SOB, wheezing, cough, abdominal pain, nausea, vomiting, diarrhea, urinary symptoms, melena, numbness/tingling, weakness, muscle/joint pain, anxiety/depression, active bleeding, or new skin discoloration/changes. (Stacey Deras ., STEFANIE-C) Medications Current Inpatient Medications Medications (Trade) Dose Ordered Sig/Niraj Route Start Time Stop Time Status Last Admin Dose Admin Metoprolol Succinate (Toprol Xl Tab) 50 mg QAM PO 07/06/17 09:00 08/05/17 08:59 07/10/17 07:59 50 MG Metoprolol Succinate (Toprol Xl Tab) 25 mg QPM PO 07/06/17 21:00 08/05/17 20:59 07/09/17 19:58 25 MG Pravastatin Sodium (Pravachol Tab) 20 mg HS PO 07/06/17 21:00 08/05/17 20:59 07/09/17 19:58 20 MG Sertraline HCl (Zoloft Tab) 50 mg DAILY PO 07/06/17 09:00 08/05/17 08:59 07/10/17 07:59 50 MG Tamsulosin HCl (Flomax Cap) 0.4 mg DAILY PO 07/06/17 09:00 08/05/17 08:59 07/10/17 07:59 0.4 MG Tramadol HCl (Ultram Tab) 100 mg BID PO 07/06/17 09:00 08/05/17 08:59 07/10/17 07:59 100 MG Heparin Sodium (Porcine) (Heparin Sq 5000 Unit/0.5ml) 5,000 unit Q8H SQ 07/06/17 08:00 1/7/18 07:59 07/10/17 08:00 5,000 UNIT Acetaminophen (Tylenol Tab) 650 mg Q4H PRN PO 07/06/17 03:45 08/05/17 03:44 Al Hydrox/Mg Hydrox/Simethicone (Maalox Max Susp) 15 ml Q4H PRN PO 07/06/17 03:45 08/05/17 03:44 Magnesium Hydroxide (Milk Of Magnesia Susp) 30 ml Q6H PRN PO 07/06/17 03:45 08/05/17 03:44 Polyethylene (Miralax Powder Packet) 17 gm DAILY PRN PO 07/06/17 03:45 08/05/17 03:44 Ondansetron HCl (Zofran Inj) 4 mg Q6H PRN IV 07/06/17 03:45 08/05/17 03:44 07/08/17 22:21 4 MG Levofloxacin (Consult) 1 ea UD PRN N/A 07/06/17 17:15 08/05/17 17:14 Levofloxacin 500 mg/Prmx 100 ml @ 100 mls/hr Q48H IV 07/08/17 08:00 07/18/17 07:59 07/10/17 07:59 100 MLS/HR Calcium Carbonate (Tums Chew Tab) 500 mg AC PO 07/07/17 11:00 08/06/17 10:59 07/10/17 10:48 500 MG Albuterol Sulfate (Ventolin 0.083% 2.5MG/3ML Neb) 2.5 mg Q2H PRN INH 07/07/17 16:15 08/06/17 16:14 (Stacey Deras PA-C) Objective Vital Signs Date Time Temp Pulse Resp B/P (MAP) Pulse Ox O2 Delivery O2 Flow Rate FiO2 07/10/17 11:29 36.9 89 20 160/75 (103) 96 07/10/17 08:00 Room Air 07/10/17 07:37 36.6 86 18 166/78 (107) 93 07/10/17 07:29 72 16 Room Air 91 07/10/17 04:00 Room Air 07/10/17 03:48 36.5 69 20 158/79 (105) 92 Room Air 07/10/17 00:01 36.9 72 18 160/81 (107) 90 Room Air 07/10/17 00:01 Room Air 07/09/17 20:00 Room Air 07/09/17 19:52 36.6 72 18 121/70 (87) 90 Room Air 07/09/17 18:55 73 16 Room Air 90 07/09/17 16:00 Room Air 07/09/17 15:39 36.4 67 18 140/65 (90) 94 Room Air 07/09/17 15:38 68 16 Room Air 94 07/09/17 14:25 36.6 66 148/72 (97) 07/09/17 14:00 71 111/62 07/09/17 13:46 70 113/57 07/09/17 13:30 69 118/66 07/09/17 13:15 67 107/72 07/09/17 13:00 75 116/66 07/09/17 12:45 65 110/60 07/09/17 12:30 68 125/70 07/09/17 12:13 67 143/70 07/09/17 12:00 36.8 68 119/75 (90) 07/09/17 12:00 Room Air (Stacey Deras, PA-C) Physical Exam General Appearance: no apparent distress, + obese Eyes: normal inspection, PERRL ENT: hearing grossly normal Neck: supple Respiratory/Chest: lungs clear, no respiratory distress, no accessory muscle use Cardiovascular: regular rate, rhythm Abdomen: normal bowel sounds, non tender, soft Extremities: no pedal edema, no calf tenderness Neurologic/Psychiatric: alert, normal mood/affect, oriented x 3 Skin: normal color, warm/dry, no rash (Stacey Deras, PA-C) Laboratory Results Last 24 Hours Test 07/10/17 06:16 07/10/17 07:24 White Blood Count 9.49 K/uL Red Blood Count 3.67 M/uL Hemoglobin 9.9 g/dL Hematocrit 31.5 % Mean Corpuscular Volume 85.8 fL Mean Corpuscular Hemoglobin 27.0 pg Mean Corpuscular Hemoglobin Concent 31.4 g/dl Platelet Count 175 K/uL Mean Platelet Volume 9.8 fL Neutrophils (%) (Auto) 72.8 % Lymphocytes (%) (Auto) 16.5 % Monocytes (%) (Auto) 8.5 % Eosinophils (%) (Auto) 0.6 % Basophils (%) (Auto) 0.1 % Neutrophils # (Auto) 6.90 K/uL Lymphocytes # (Auto) 1.57 K/uL Monocytes # (Auto) 0.81 K/uL Eosinophils # (Auto) 0.06 K/uL Basophils # (Auto) 0.01 K/uL RDW Standard Deviation 47.3 fL RDW Coefficient of Variation 14.9 % Immature Granulocyte % (Auto) 1.5 % Immature Granulocyte # (Auto) 0.14 K/uL Sodium Level 135 mmol/L Potassium Level mmol/L 4.2 mmol/L Chloride Level 103 mmol/L Carbon Dioxide Level 25 mmol/L Anion Gap 7.0 mmol/L Blood Urea Nitrogen 43 mg/dl Creatinine 2.63 mg/dl Est Creatinine Clear Calc Drug Dose 14.3 ml/min Estimated GFR () 18.5 Estimated GFR (Non- 15.9 BUN/Creatinine Ratio 16.2 Random Glucose 103 mg/dl Calcium Level 8.1 mg/dl Phosphorus Level 4.3 mg/dl (Stacey Deras, CRISTÓBALC) Assessment and Plan 87 y/o F Hx HTN, urinary incontinence. The pt has exhibited progressive confusion over the last few days. She was brought to her primary MD by her son. Labs were obtained and a markedly elevated BUN/creat was noted. She was instructed to attend the hospital therefore. She is unable to provide a meaningful history. Her son is present at bedside and denies that she had complained of additional symptoms such as fevers/rigors, n/v/d or dysuria although she is chronically incontinent. Metabolic/uremic encephalopathy, secondary to OTILIA on CKD stage III, likely secondary to ATN: - Admitted to [facility] for cardiac monitoring- no acute events, transfer to med/surg - Treated w/ IVF - Emergent access and dialysis started on 07/06 - Renal US- no hydro/obstruction - Renally dose medications as appropriate and avoid nephrotoxic agents - Nephrology following -- Vasculitis workup pending - Consulted Vascular surgery- PermCath insertion by Dr. Horne on 07/09 for continued dialysis UTI- UCx growing E.coli: Levaquin- started on 07/08 Hyperphosphatemia: - Tums TID - Follow phosphate level Hyperkalemia- RESOLVED: Treated w/ Kayexalate and IVF HTN: Metoprolol 25 mg HS and 50 mg QAM w/ hold parameters HLD: Pravastatin 20 mg HS Incontinence: Continue Flomax 0.4 mg HS DVT prophylaxis: Heparin SQ TID Code Status: LEVEL I, FULL Dispo: Recommend rehab at discharge- hopeful discharge tomorrow- PT/OT and CM following (Stacey Deras, PA-C) I agree with PA assessment and plan and have seen and examined pt myself Resting comfortably in bed No distress noted, pt does note feeling weak Delirium resolved VSS Labs reviewed Cr mildly improving Appreciate nephro recs Renal recovery not observed Monitor urine output Central line placed, tolerated dialysis, OP setup for [place] dialysis PT - rec rehab, cont to monitor (Nabeel Clements, D.O.)
[2017-07-10] MEDS: ONDANSETRON INJ 2 MG/ML 2 ML VIAL IV PRN (13:16)
[2017-07-10] MEDS: PRAVASTATIN SOD 20 MG TAB PO SCH (20:06)
[2017-07-11 00:21] VITALS: BP 181/73; PULSE 74; TEMP 36.9; O2SAT 93
[2017-07-11 00:44] VITALS: BP 133/68
[2017-07-11] MEDS: CALCIUM CARBONATE 500 MG CHEWABLE PO SCH ×3 (06:25→17:02)
[2017-07-11 07:30] LABS: BASO % 0.5 %; BASO ABS # 0.05 K/uL (0-0.2); COMPLETE YES; EOS % 1.6 %; HEMATOCRIT 33.2 % (37-47); IG% 2.1 %; LYMPH % 15.9 %; LYMPH ABS # 1.75 K/uL (1.2-3.4); MEAN CELL VOLUME 87.8 fL (80-100); MEAN CORPUSCULAR HGB CONC 31.9 g/dl (32-36); MEAN PLATELET VOLUME 9.7 fL (7.4-10.4); MONO % 7.6 %; NEUT % 72.3 %; PLATELET COUNT 187 K/uL (130-400); RED BLOOD COUNT 3.78 M/uL (4.2-5.4); WHITE BLOOD COUNT 10.99 K/uL (4.8-10.8)
[2017-07-11 07:31] VITALS: BP 143/58; PULSE 66; TEMP 36.7; O2SAT 92
[2017-07-11 08:02] LABS: BUN/CREATININE RATIO 16.9 (10-20); CALCIUM 8.2 mg/dl (8.5-10.1); CREATININE 2.79 mg/dl (0.60-1.20); POTASSIUM 4.2 mmol/L (3.5-5.1)
[2017-07-11 08:18] LABS: ALBUMIN % 29.53 %; ALPHA-2-GLOBULIN % 16.97 %; BETA GLOBULIN % 18.45 %; CREATININE UR 104 MG/DL (20-320); GAMMA GLOBULIN % 29.93 %
[2017-07-11] MEDS: HEPARIN SOD 5000 UNIT/0.5 ML CARP SQ SCH ×2 (09:11→16:29)
[2017-07-11] MEDS: METOPROLOL SUCC 25MG EXT REL TAB PO SCH ×2 (09:12→20:06)
[2017-07-11] MEDS: SERTRALINE HCL 50 MG TAB PO SCH (09:12)
[2017-07-11] MEDS: TAMSULOSIN HCL 0.4 MG CAP PO SCH (09:12)
[2017-07-11] MEDS: TRAMADOL HCL 50 MG TAB PO SCH ×2 (09:12→20:05)
--- NOTE | 2017-07-11 10:37 | Nephrology Progress Note ---
Nephrology Progress Note Date of Service Jul 11, 2017. Chief Complaint Acute on CKD Subjective Ms. Worrell was seen & examined in her hospital room this morning. She started physical therapy yesterday but remains weak. She voices no new medical concerns. Review of Systems Constitutional: No fever Cardiovascular: No chest pain Respiratory: No dyspnea at rest Abdomen: No pain, No nausea Extremities: No leg edema A complete review of systems was performed. Pertinent positives are noted above. All other systems are negative. Vital Signs Last 8 Hrs Date Time Temp Pulse Resp B/P (MAP) Pulse Ox O2 Delivery O2 Flow Rate FiO2 07/11/17 07:59 Room Air 07/11/17 07:31 36.7 66 20 143/58 (86) 92 Room Air Last Recorded Weight Weight (Kilograms): 80.500 Physical Exam General Appearance: no apparent distress Head: normocephalic, atraumatic Eyes: PERRL Neck: no adenopathy, + pertinent finding (IJ THC with clean dry dressing in place) Respiratory/Chest: lungs clear Cardiovascular: regular rate, rhythm Abdomen/GI: normal bowel sounds, non tender, soft Genitourinary - Female: + pertinent finding (banda catheter in place draining clear yellow urine) Extremities/Musculoskelatal: no calf tenderness, no pedal edema Neurologic/Psych: alert, oriented x 3 Family History Diabetes mellitus Heart disease Hypertension Social History Drug Use: none Occupation: retired Laboratory Results Past 24 Hours 07/11/17 06:27 Red Blood Count 3.78, Mean Corpuscular Volume 87.8, Mean Corpuscular Hemoglobin 28.0, Mean Corpuscular Hemoglobin Concent 31.9, Mean Platelet Volume 9.7, Neutrophils (%) (Auto) 72.3, Lymphocytes (%) (Auto) 15.9, Monocytes (%) (Auto) 7.6, Eosinophils (%) (Auto) 1.6, Basophils (%) (Auto) 0.5, Neutrophils # (Auto) 7.95, Lymphocytes # (Auto) 1.75, Monocytes # (Auto) 0.83, Eosinophils # (Auto) 0.18, Basophils # (Auto) 0.05 07/11/17 06:27 Test 07/11/17 06:27 White Blood Count 10.99 K/uL (4.8-10.8) Red Blood Count 3.78 M/uL (4.2-5.4) Hemoglobin 10.6 g/dL (12.0-16.0) Hematocrit 33.2 % (37-47) Mean Corpuscular Volume 87.8 fL (80-100) Mean Corpuscular Hemoglobin 28.0 pg (25-34) Mean Corpuscular Hemoglobin Concent 31.9 g/dl (32-36) Platelet Count 187 K/uL (130-400) Mean Platelet Volume 9.7 fL (7.4-10.4) Neutrophils (%) (Auto) 72.3 % Lymphocytes (%) (Auto) 15.9 % Monocytes (%) (Auto) 7.6 % Eosinophils (%) (Auto) 1.6 % Basophils (%) (Auto) 0.5 % Neutrophils # (Auto) 7.95 K/uL (1.4-6.5) Lymphocytes # (Auto) 1.75 K/uL (1.2-3.4) Monocytes # (Auto) 0.83 K/uL (0.11-0.59) Eosinophils # (Auto) 0.18 K/uL (0-0.5) Basophils # (Auto) 0.05 K/uL (0-0.2) RDW Standard Deviation 48.4 fL (36.4-46.3) RDW Coefficient of Variation 15.1 % (11.5-14.5) Immature Granulocyte % (Auto) 2.1 % Immature Granulocyte # (Auto) 0.23 K/uL (0.00-0.02) Anion Gap 8.0 mmol/L (3-11) Est Creatinine Clear Calc Drug Dose 13.5 ml/min Estimated GFR () 17.2 Estimated GFR (Non- 14.8 BUN/Creatinine Ratio 16.9 (10-20) Calcium Level 8.2 mg/dl (8.5-10.1) Allergies Coded Allergies: Solifenacin (Verified Allergy, Intermediate, HIVES, 07/06/17) Codeine (Verified Adverse Reaction, Intermediate, DIZZINESS, 07/06/17) Medications Current Inpatient Medications Medications (Trade) Dose Ordered Sig/Niraj Route Start Time Stop Time Status Last Admin Dose Admin Metoprolol Succinate (Toprol Xl Tab) 50 mg QAM PO 07/06/17 09:00 08/05/17 08:59 07/11/17 09:12 50 MG Metoprolol Succinate (Toprol Xl Tab) 25 mg QPM PO 07/06/17 21:00 08/05/17 20:59 07/10/17 20:07 25 MG Pravastatin Sodium (Pravachol Tab) 20 mg HS PO 07/06/17 21:00 08/05/17 20:59 07/10/17 20:06 20 MG Sertraline HCl (Zoloft Tab) 50 mg DAILY PO 07/06/17 09:00 08/05/17 08:59 07/11/17 09:12 50 MG Tamsulosin HCl (Flomax Cap) 0.4 mg DAILY PO 07/06/17 09:00 08/05/17 08:59 07/11/17 09:12 0.4 MG Tramadol HCl (Ultram Tab) 100 mg BID PO 07/06/17 09:00 08/05/17 08:59 07/11/17 09:12 100 MG Heparin Sodium (Porcine) (Heparin Sq 5000 Unit/0.5ml) 5,000 unit Q8H SQ 07/06/17 08:00 08/05/17 07:59 07/11/17 09:11 5,000 UNIT Acetaminophen (Tylenol Tab) 650 mg Q4H PRN PO 07/06/17 03:45 08/05/17 03:44 Al Hydrox/Mg Hydrox/Simethicone (Maalox Max Susp) 15 ml Q4H PRN PO 07/06/17 03:45 08/05/17 03:44 Magnesium Hydroxide (Milk Of Magnesia Susp) 30 ml Q6H PRN PO 07/06/17 03:45 08/05/17 03:44 Polyethylene (Miralax Powder Packet) 17 gm DAILY PRN PO 07/06/17 03:45 08/05/17 03:44 Ondansetron HCl (Zofran Inj) 4 mg Q6H PRN IV 07/06/17 03:45 08/05/17 03:44 07/10/17 13:16 4 MG Calcium Carbonate (Tums Chew Tab) 500 mg AC PO 07/07/17 11:00 08/06/17 10:59 07/11/17 09:59 500 MG Albuterol Sulfate (Ventolin 0.083% 2.5MG/3ML Neb) 2.5 mg Q2H PRN INH 07/07/17 16:15 08/06/17 16:14 Impression (1) Acute renal failure (2) Delirium (3) Hyperkalemia (4) Metabolic acidosis (5) Oliguria (6) HTN (hypertension) (7) Proteinuria (8) Hematuria Ms. Worrell is a 87-year-old female w/ PMH of HTN and stage 3 CKD admitted to the hospital with change in mental status, overall declining health, poor p.o. intake over last few weeks and found to have acute kidney injury and significant electrolyte abnormality. On admission creatinine was 5.8 (baseline 1.3-1.4). Renal US unremarkable for postrenal obstruction. Vital sign has been stable. Patient was diagnosed w/ E coli UTI and is currently on Levaquin. Acute kidney injury could be secondary to hemodynamically mediated ATN with poor p.o. intake and taking NSAID regularly, however cannot exclude possibility for acute glomerular and nephritis at this point including anti-GBM or ANCA vasculitis considering proteinuria and hematuria on urinalysis. Serology pending, started on dialysis on 07/06/2017 for significant electrolyte abnormality. Recommendations ACUTE KIDNEY INJURY: -- Likely ATN due to volume depletion in the setting of UTI and NSAID therapy -- Renal US report 07/06: kidneys ~ 9 cm w/ cortical atrophy. No hydro. No stones -- Kidney function was relatively stable overnight. Electrolyte balance is acceptable. Patient is now nonoliguric. Will hold HD today and reassess dialysis need in am. -- Keep banda catheter in for now to document UO -- Recommend continued hospitalization until clear recovery in kidney function -- Awaiting results of vasculitis evaluation (pending as of 07/11 am). UIEP negative for monoclonal protein. CHRONIC KIDNEY DISEASE: -- Baseline creatinine 1.4 HYPERTENSION: -- Mild HTN. Continue Metoprolol. Target SBP 140 - 150 mm HG ANEMIA: -- Hgb within target range 10 - 11. 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 Coli UTI currently on Levaquin OTHER: -- Continue physical therapy for strengthening
--- NOTE | 2017-07-11 11:37 | Hospitalist Progress Note ---
Hospitalist Progress Note Date of Service Jul 11, 2017. (Stacey Deras ., JONAS) Subjective Pt evaluation today including: conversation w/ patient, physical exam, lab review, review of inpatient medication list Voiding: banda catheter in place Patient sitting up in bed. Eating and drinking OK. Denies any complaints. Agreeable to rehab. No HD today per nephrology. Patient denies any fever, chills, sweats, lightheadedness, dizziness, vision changes, CP, palpitations, edema, SOB, wheezing, cough, abdominal pain, nausea, vomiting, diarrhea, urinary symptoms, melena, numbness/tingling, weakness, muscle/joint pain, anxiety/depression, active bleeding, or new skin discoloration/changes. (Stacey Deras ., CRISTÓBALC) Medications Current Inpatient Medications Medications (Trade) Dose Ordered Sig/Niraj Route Start Time Stop Time Status Last Admin Dose Admin Metoprolol Succinate (Toprol Xl Tab) 50 mg QAM PO 07/06/17 09:00 08/05/17 08:59 07/11/17 09:12 50 MG Metoprolol Succinate (Toprol Xl Tab) 25 mg QPM PO 07/06/17 21:00 08/05/17 20:59 07/10/17 20:07 25 MG Pravastatin Sodium (Pravachol Tab) 20 mg HS PO 07/06/17 21:00 08/05/17 20:59 07/10/17 20:06 20 MG Sertraline HCl (Zoloft Tab) 50 mg DAILY PO 07/06/17 09:00 08/05/17 08:59 07/11/17 09:12 50 MG Tamsulosin HCl (Flomax Cap) 0.4 mg DAILY PO 07/06/17 09:00 08/05/17 08:59 07/11/17 09:12 0.4 MG Tramadol HCl (Ultram Tab) 100 mg BID PO 07/06/17 09:00 08/05/17 08:59 07/11/17 09:12 100 MG Heparin Sodium (Porcine) (Heparin Sq 5000 Unit/0.5ml) 5,000 unit Q8H SQ 07/06/17 08:00 08/05/17 07:59 07/11/17 09:11 5,000 UNIT Acetaminophen (Tylenol Tab) 650 mg Q4H PRN PO 07/06/17 03:45 08/05/17 03:44 Al Hydrox/Mg Hydrox/Simethicone (Maalox Max Susp) 15 ml Q4H PRN PO 07/06/17 03:45 08/05/17 03:44 Magnesium Hydroxide (Milk Of Magnesia Susp) 30 ml Q6H PRN PO 07/06/17 03:45 08/05/17 03:44 Polyethylene (Miralax Powder Packet) 17 gm DAILY PRN PO 07/06/17 03:45 08/05/17 03:44 Ondansetron HCl (Zofran Inj) 4 mg Q6H PRN IV 07/06/17 03:45 08/05/17 03:44 07/10/17 13:16 4 MG Calcium Carbonate (Tums Chew Tab) 500 mg AC PO 07/07/17 11:00 08/06/17 10:59 07/11/17 09:59 500 MG Albuterol Sulfate (Ventolin 0.083% 2.5MG/3ML Neb) 2.5 mg Q2H PRN INH 07/07/17 16:15 08/06/17 16:14 (Stacey Deras, PA-C) Objective Vital Signs Date Time Temp Pulse Resp B/P (MAP) Pulse Ox O2 Delivery O2 Flow Rate FiO2 07/11/17 07:59 Room Air 07/11/17 07:31 36.7 66 20 143/58 (86) 92 Room Air 07/11/17 00:44 133/68 (89) 07/11/17 00:21 36.9 74 20 181/73 (109) 93 Room Air 07/10/17 23:16 Room Air 07/10/17 19:00 Room Air 07/10/17 16:09 Room Air 07/10/17 15:26 36.7 67 16 165/83 (110) 90 Room Air 07/10/17 12:21 36.9 89 20 96 4.0 07/10/17 12:00 Room Air 07/10/17 11:29 36.9 89 20 160/75 (103) 96 (Stacey Deras, PA-C) Physical Exam General Appearance: no apparent distress, + obese Eyes: normal inspection, PERRL ENT: hearing grossly normal, + pertinent finding (HD cath intact, dressing C/D/ I) Neck: supple Respiratory/Chest: lungs clear, no respiratory distress, no accessory muscle use Cardiovascular: regular rate, rhythm Abdomen: normal bowel sounds, non tender, soft Extremities: no pedal edema, no calf tenderness Neurologic/Psychiatric: alert, normal mood/affect, oriented x 3 Skin: normal color, warm/dry, no rash (Stacey Deras .JONAS) Laboratory Results Last 24 Hours Test 07/11/17 06:27 White Blood Count 10.99 K/uL Red Blood Count 3.78 M/uL Hemoglobin 10.6 g/dL Hematocrit 33.2 % Mean Corpuscular Volume 87.8 fL Mean Corpuscular Hemoglobin 28.0 pg Mean Corpuscular Hemoglobin Concent 31.9 g/dl Platelet Count 187 K/uL Mean Platelet Volume 9.7 fL Neutrophils (%) (Auto) 72.3 % Lymphocytes (%) (Auto) 15.9 % Monocytes (%) (Auto) 7.6 % Eosinophils (%) (Auto) 1.6 % Basophils (%) (Auto) 0.5 % Neutrophils # (Auto) 7.95 K/uL Lymphocytes # (Auto) 1.75 K/uL Monocytes # (Auto) 0.83 K/uL Eosinophils # (Auto) 0.18 K/uL Basophils # (Auto) 0.05 K/uL RDW Standard Deviation 48.4 fL RDW Coefficient of Variation 15.1 % Immature Granulocyte % (Auto) 2.1 % Immature Granulocyte # (Auto) 0.23 K/uL Sodium Level 136 mmol/L Potassium Level 4.2 mmol/L Chloride Level 104 mmol/L Carbon Dioxide Level 24 mmol/L Anion Gap 8.0 mmol/L Blood Urea Nitrogen 47 mg/dl Creatinine 2.79 mg/dl Est Creatinine Clear Calc Drug Dose 13.5 ml/min Estimated GFR () 17.2 Estimated GFR (Non- 14.8 BUN/Creatinine Ratio 16.9 Random Glucose 97 mg/dl Calcium Level 8.2 mg/dl (Stacey Deras PA-C) Assessment and Plan 87 y/o F Hx HTN, urinary incontinence. The pt has exhibited progressive confusion over the last few days. She was brought to her primary MD by her son. Labs were obtained and a markedly elevated BUN/creat was noted. She was instructed to attend the hospital therefore. She is unable to provide a meaningful history. Her son is present at bedside and denies that she had complained of additional symptoms such as fevers/rigors, n/v/d or dysuria although she is chronically incontinent. Metabolic/uremic encephalopathy, secondary to OTILIA on CKD stage III, likely secondary to ATN: - Admitted to tele for cardiac monitoring- no acute events, transferred to med/ surg - Treated w/ IVF - Emergent access and dialysis started on 07/06 - Renal US- no hydro/obstruction - Renally dose medications as appropriate and avoid nephrotoxic agents - Nephrology following -- Vasculitis workup pending -- Continue hospital stay until clear recovery in kidney function -- Outpatient referral for [place] dialysis - Consulted Vascular surgery- PermCath insertion by Dr. Horne on 07/09 for continued dialysis UTI- UCx growing E.coli: Levaquin x5 days treatment completed Hyperphosphatemia: - Tums TID - Follow phosphate level Hyperkalemia- RESOLVED: Treated w/ Kayexalate and IVF HTN: Metoprolol 25 mg HS and 50 mg QAM w/ hold parameters HLD: Pravastatin 20 mg HS Incontinence: Continue Flomax 0.4 mg HS DVT prophylaxis: Heparin SQ TID Code Status: LEVEL I, FULL Dispo: Rehab at discharge pending kidney function improvement- PT/OT and CM following (Stacey Deras, PA-C) I agree with PA assessment and plan and have seen and examined pt myself Resting comfortably in bed No distress noted, pt does note feeling weak, PT rec rehab, pt in agreement Delirium resolved VSS Labs reviewed Cr mildly improving Appreciate nephro recs Renal recovery not observed Monitor urine output Central line placed, tolerated dialysis, OP setup for [place] dialysis (Nabeel Clements D.O.)
--- NOTE | 2017-07-11 11:40 | Medical Student: [facility] ---
Med Student Progress Note Date of Service Jul 11, 2017. Subjective Pt evaluation today including: conversation w/ patient, physical exam, chart review, lab review, review of studies, review of inpatient medication list Voiding: banda catheter in place 87 year old female with history of stage 3 CKD presenting with AMS. Found to have creatinine of 5.35 (baseline 1.3). Acute on chronic renal failure likely due to chronic NSAID use and dehydration. Seen by nephrology and started on dialysis, IJ catheter placed. Also found to have UTI, culture shows pansensitive E.coli, completed treatment with Levaquin. She is oriented x3 today and has no current complaints. Electrolytes are within acceptable ranges. Nephrology is setting her up with outpatient dialysis at [place]. She will get outpatient rehabilitation at [facility]. Review of Systems Constitutional: No fever, No chills Respiratory: No cough, No sputum, No wheezing, No shortness of breath Cardiac: No chest pain, No edema, No palpitations Abdomen: No pain, No nausea, No vomiting, No diarrhea, No constipation Female : No dysuria, No urinary frequency Skin: No rash, No itch All Other Systems: Reviewed and Negative Objective Vital Signs Date Time Temp Pulse Resp B/P (MAP) Pulse Ox O2 Delivery O2 Flow Rate FiO2 07/11/17 07:59 Room Air 07/11/17 07:31 36.7 66 20 143/58 (86) 92 Room Air 07/11/17 00:44 133/68 (89) 07/11/17 00:21 36.9 74 20 181/73 (109) 93 Room Air 07/10/17 23:16 Room Air 07/10/17 19:00 Room Air 07/10/17 16:09 Room Air 07/10/17 15:26 36.7 67 16 165/83 (110) 90 Room Air 07/10/17 12:21 36.9 89 20 96 4.0 07/10/17 12:00 Room Air 07/10/17 11:29 36.9 89 20 160/75 (103) 96 Physical Exam General Appearance: WD/WN, no apparent distress Eyes: bilateral eyes normal inspection, bilateral eyes EOMI ENT: hearing grossly normal, pharynx normal Neck: supple, no JVD Respiratory/Chest: chest non-tender, lungs clear, normal breath sounds, no respiratory distress, no accessory muscle use Cardiovascular: regular rate, rhythm, no edema, no gallop, no JVD, no murmur Abdomen: normal bowel sounds, non tender, soft, no organomegaly, no pulsatile mass Extremities: non-tender, normal inspection, no pedal edema, no calf tenderness Neurologic/Psychiatric: alert, normal mood/affect, oriented x 3 Skin: normal color, warm/dry, no rash Laboratory Results Last 24 Hours Test 07/11/17 06:27 White Blood Count 10.99 K/uL Red Blood Count 3.78 M/uL Hemoglobin 10.6 g/dL Hematocrit 33.2 % Mean Corpuscular Volume 87.8 fL Mean Corpuscular Hemoglobin 28.0 pg Mean Corpuscular Hemoglobin Concent 31.9 g/dl Platelet Count 187 K/uL Mean Platelet Volume 9.7 fL Neutrophils (%) (Auto) 72.3 % Lymphocytes (%) (Auto) 15.9 % Monocytes (%) (Auto) 7.6 % Eosinophils (%) (Auto) 1.6 % Basophils (%) (Auto) 0.5 % Neutrophils # (Auto) 7.95 K/uL Lymphocytes # (Auto) 1.75 K/uL Monocytes # (Auto) 0.83 K/uL Eosinophils # (Auto) 0.18 K/uL Basophils # (Auto) 0.05 K/uL RDW Standard Deviation 48.4 fL RDW Coefficient of Variation 15.1 % Immature Granulocyte % (Auto) 2.1 % Immature Granulocyte # (Auto) 0.23 K/uL Sodium Level 136 mmol/L Potassium Level 4.2 mmol/L Chloride Level 104 mmol/L Carbon Dioxide Level 24 mmol/L Anion Gap 8.0 mmol/L Blood Urea Nitrogen 47 mg/dl Creatinine 2.79 mg/dl Est Creatinine Clear Calc Drug Dose 13.5 ml/min Estimated GFR () 17.2 Estimated GFR (Non- 14.8 BUN/Creatinine Ratio 16.9 Random Glucose 97 mg/dl Calcium Level 8.2 mg/dl Medications Current Inpatient Medications Medications (Trade) Dose Ordered Sig/Niraj Route Start Time Stop Time Status Last Admin Dose Admin Metoprolol Succinate (Toprol Xl Tab) 50 mg QAM PO 07/06/17 09:00 08/05/17 08:59 07/11/17 09:12 50 MG Metoprolol Succinate (Toprol Xl Tab) 25 mg QPM PO 07/06/17 21:00 08/05/17 20:59 07/10/17 20:07 25 MG Pravastatin Sodium (Pravachol Tab) 20 mg HS PO 07/06/17 21:00 08/05/17 20:59 07/10/17 20:06 20 MG Sertraline HCl (Zoloft Tab) 50 mg DAILY PO 07/06/17 09:00 08/05/17 08:59 07/11/17 09:12 50 MG Tamsulosin HCl (Flomax Cap) 0.4 mg DAILY PO 07/06/17 09:00 08/05/17 08:59 07/11/17 09:12 0.4 MG Tramadol HCl (Ultram Tab) 100 mg BID PO 07/06/17 09:00 08/05/17 08:59 07/11/17 09:12 100 MG Heparin Sodium (Porcine) (Heparin Sq 5000 Unit/0.5ml) 5,000 unit Q8H SQ 07/06/17 08:00 08/05/17 07:59 07/11/17 09:11 5,000 UNIT Acetaminophen (Tylenol Tab) 650 mg Q4H PRN PO 07/06/17 03:45 08/05/17 03:44 Al Hydrox/Mg Hydrox/Simethicone (Maalox Max Susp) 15 ml Q4H PRN PO 07/06/17 03:45 08/05/17 03:44 Magnesium Hydroxide (Milk Of Magnesia Susp) 30 ml Q6H PRN PO 07/06/17 03:45 08/05/17 03:44 Polyethylene (Miralax Powder Packet) 17 gm DAILY PRN PO 07/06/17 03:45 08/05/17 03:44 Ondansetron HCl (Zofran Inj) 4 mg Q6H PRN IV 07/06/17 03:45 08/05/17 03:44 07/10/17 13:16 4 MG Calcium Carbonate (Tums Chew Tab) 500 mg AC PO 07/07/17 11:00 18 10:59 07/11/17 09:59 500 MG Albuterol Sulfate (Ventolin 0.083% 2.5MG/3ML Neb) 2.5 mg Q2H PRN INH 07/07/17 16:15 1/8/18 16:14 Assessment and Plan Problems Acute renal failure Delirium Hyperkalemia Urinary retention Assessment and Plan: Assessment: 87 year old female with acute on chronic renal failure started on dialysis with concomitant electrolyte abnormalities, UTI and hypertension. Plan: 1. Acute on Chronic Renal Failure: Nephrology has been consulted. Started first time dialysis on 07/07, IJ catheter inserted yesterday, has received dialysis through it, femoral catheter was removed. Electrolytes have normalized to acceptable ranges. Acute exacerbation likely from chronic NSAID use and dehydration. Creatinine now 2.79 down from 5.35 on admission. Baseline creatinine is 1.3 (03/28/17). Continue following with nephrology. Setting up outpatient dialysis at [place]. Per nephrology recommendations will hold HD, and continue hospital stay until clear kidney recovery. 2. UTI: Ecoli pansensitive, completed Levaquin. 3. Incontinence: Banda catheter and flomax. 4. Hyperkalemia: corrected, K+ is 4.2. BMP q12 5. Hypertension: continue metoprolol 25mg qPM, 50mg qAM.. 6. Hypocalcemia: Increased PTH, 25OH vit D 32, likely due to kidney failure. Improved with 500mg calcium carbonate as well as causing decreased Phosphorus into normal range. 7. Mild anemia: improved with EPO. Disposition: Will continue to observe with hopes of discharging to [facility] for rehab. Continued [facility] stay due to: voiding difficulties Discharge planning: rehab hospital
[2017-07-11 15:12] VITALS: BP 123/68; PULSE 61; TEMP 36.6; O2SAT 92
[2017-07-11 16:00] VITALS: O2SAT 92
[2017-07-11] MEDS: PRAVASTATIN SOD 20 MG TAB PO SCH (20:06)
[2017-07-11 23:35] VITALS: BP 155/63; PULSE 63; TEMP 36.8; O2SAT 93
[2017-07-12] MEDS: HEPARIN SOD 5000 UNIT/0.5 ML CARP SQ SCH ×3 (00:42→16:03)
[2017-07-12] MEDS: CALCIUM CARBONATE 500 MG CHEWABLE PO SCH ×3 (05:56→17:10)
[2017-07-12 06:17] LABS: BASO % 0.3 %; BASO ABS # 0.04 K/uL (0-0.2); COMPLETE YES; HEMATOCRIT 31.9 % (37-47); IG% 1.8 %; LYMPH % 15.1 %; LYMPH ABS # 2.14 K/uL (1.2-3.4); MEAN CELL VOLUME 88.1 fL (80-100); MEAN CORPUSCULAR HEMOGLOBIN 27.6 pg (25-34); MEAN CORPUSCULAR HGB CONC 31.3 g/dl (32-36); MEAN PLATELET VOLUME 9.3 fL (7.4-10.4); MONO % 7.7 %; NEUT % 72.1 %; PLATELET COUNT 158 K/uL (130-400); RED BLOOD COUNT 3.62 M/uL (4.2-5.4); WHITE BLOOD COUNT 14.14 K/uL (4.8-10.8)
[2017-07-12 06:50] LABS: BUN/CREATININE RATIO 19.2 (10-20); CALCIUM 8.4 mg/dl (8.5-10.1); CREATININE 2.7 mg/dl (0.60-1.20); POTASSIUM 4.1 mmol/L (3.5-5.1)
[2017-07-12 07:52] LABS: MAGNESIUM 1.9 mg/dl (1.8-2.4)
[2017-07-12] MEDS: TAMSULOSIN HCL 0.4 MG CAP PO SCH (07:55)
[2017-07-12] MEDS: SERTRALINE HCL 50 MG TAB PO SCH (07:56)
[2017-07-12] MEDS: METOPROLOL SUCC 25MG EXT REL TAB PO SCH ×2 (07:56→19:58)
[2017-07-12] MEDS: TRAMADOL HCL 50 MG TAB PO SCH ×2 (07:57→19:58)
[2017-07-12 08:05] VITALS: BP 144/54; PULSE 62; TEMP 36.7; O2SAT 92
[2017-07-12 08:22] LABS: PHOSPHORUS 2.8 mg/dl (2.5-4.9)
--- NOTE | 2017-07-12 09:44 | Medical Student: [facility] ---
Med Student Progress Note Date of Service Jul 12, 2017. Subjective Pt evaluation today including: conversation w/ patient, physical exam, chart review, lab review, review of studies, review of inpatient medication list Voiding: banda catheter in place 87 year old female with history of stage 3 CKD presenting with AMS. Found to have creatinine of 5.35 (baseline 1.3). Acute on chronic renal failure likely due to chronic NSAID use and dehydration. Seen by nephrology and started on dialysis, IJ catheter in place. Also found to have UTI, culture shows pansensitive E.coli, completed treatment with Levaquin. She is oriented x3 today and has no current complaints. She continues to have low urine output, 575ml of urine yesterday. Creatinine is 2.7 today. Electrolytes are within acceptable ranges. Nephrology has set her up with outpatient dialysis at [place]. She will get outpatient rehabilitation at [facility]. Nephrology has suggested continuing hospital stay until there is clear improvement in kidney function. Review of Systems Constitutional: No fever, No chills Respiratory: No cough, No wheezing, No shortness of breath Cardiac: No chest pain, No edema, No palpitations Abdomen: No pain, No nausea, No vomiting, No diarrhea, No constipation Female : No dysuria, No urinary frequency, No hematuria All Other Systems: Reviewed and Negative Objective Vital Signs Date Time Temp Pulse Resp B/P (MAP) Pulse Ox O2 Delivery O2 Flow Rate FiO2 07/12/17 08:05 36.7 62 18 144/54 (84) 92 07/12/17 07:45 Room Air 07/12/17 00:15 Room Air 07/11/17 23:35 36.8 63 20 155/63 (93) 93 Room Air 07/11/17 16:00 92 Room Air 07/11/17 15:12 36.6 61 16 123/68 (86) 92 Room Air Physical Exam General Appearance: WD/WN, no apparent distress Eyes: bilateral eyes normal inspection, bilateral eyes EOMI ENT: hearing grossly normal, pharynx normal Neck: supple, no JVD Respiratory/Chest: chest non-tender, lungs clear, normal breath sounds, no respiratory distress, no accessory muscle use Cardiovascular: regular rate, rhythm, no edema, no gallop, no JVD, no murmur Abdomen: normal bowel sounds, non tender, soft, no organomegaly, no pulsatile mass Extremities: normal inspection, no pedal edema, + calf tenderness (right anterior lower extremity tenderness. No swelling. Due to anterior location, low suspicion of DVT. No sign of cellulitis.) Neurologic/Psychiatric: alert, normal mood/affect, oriented x 3 Skin: normal color, warm/dry, no rash Laboratory Results Last 24 Hours Test 07/12/17 05:52 White Blood Count 14.14 K/uL Red Blood Count 3.62 M/uL Hemoglobin 10.0 g/dL Hematocrit 31.9 % Mean Corpuscular Volume 88.1 fL Mean Corpuscular Hemoglobin 27.6 pg Mean Corpuscular Hemoglobin Concent 31.3 g/dl Platelet Count 158 K/uL Mean Platelet Volume 9.3 fL Neutrophils (%) (Auto) 72.1 % Lymphocytes (%) (Auto) 15.1 % Monocytes (%) (Auto) 7.7 % Eosinophils (%) (Auto) 3.0 % Basophils (%) (Auto) 0.3 % Neutrophils # (Auto) 10.18 K/uL Lymphocytes # (Auto) 2.14 K/uL Monocytes # (Auto) 1.09 K/uL Eosinophils # (Auto) 0.43 K/uL Basophils # (Auto) 0.04 K/uL RDW Standard Deviation 48.2 fL RDW Coefficient of Variation 14.9 % Immature Granulocyte % (Auto) 1.8 % Immature Granulocyte # (Auto) 0.26 K/uL Sodium Level 136 mmol/L Potassium Level 4.1 mmol/L Chloride Level 105 mmol/L Carbon Dioxide Level 26 mmol/L Anion Gap 5.0 mmol/L Blood Urea Nitrogen 52 mg/dl Creatinine 2.70 mg/dl Est Creatinine Clear Calc Drug Dose 14.0 ml/min Estimated GFR () 17.9 Estimated GFR (Non- 15.4 BUN/Creatinine Ratio 19.2 Random Glucose 103 mg/dl Calcium Level 8.4 mg/dl Phosphorus Level 2.8 mg/dl Magnesium Level 1.9 mg/dl Medications Current Inpatient Medications Medications (Trade) Dose Ordered Sig/Niraj Route Start Time Stop Time Status Last Admin Dose Admin Metoprolol Succinate (Toprol Xl Tab) 50 mg QAM PO 07/06/17 09:00 08/05/17 08:59 07/12/17 07:56 50 MG Metoprolol Succinate (Toprol Xl Tab) 25 mg QPM PO 07/06/17 21:00 08/05/17 20:59 07/11/17 20:06 25 MG Pravastatin Sodium (Pravachol Tab) 20 mg HS PO 07/06/17 21:00 08/05/17 20:59 07/11/17 20:06 20 MG Sertraline HCl (Zoloft Tab) 50 mg DAILY PO 07/06/17 09:00 08/05/17 08:59 07/12/17 07:56 50 MG Tamsulosin HCl (Flomax Cap) 0.4 mg DAILY PO 07/06/17 09:00 08/05/17 08:59 07/12/17 07:55 0.4 MG Tramadol HCl (Ultram Tab) 100 mg BID PO 07/06/17 09:00 08/05/17 08:59 07/12/17 07:57 100 MG Heparin Sodium (Porcine) (Heparin Sq 5000 Unit/0.5ml) 5,000 unit Q8H SQ 07/06/17 08:00 08/05/17 07:59 07/12/17 07:53 5,000 UNIT Acetaminophen (Tylenol Tab) 650 mg Q4H PRN PO 07/06/17 03:45 08/05/17 03:44 Al Hydrox/Mg Hydrox/Simethicone (Maalox Max Susp) 15 ml Q4H PRN PO 07/06/17 03:45 08/05/17 03:44 Magnesium Hydroxide (Milk Of Magnesia Susp) 30 ml Q6H PRN PO 07/06/17 03:45 08/05/17 03:44 Polyethylene (Miralax Powder Packet) 17 gm DAILY PRN PO 07/06/17 03:45 08/05/17 03:44 07/11/17 16:14 17 GM Ondansetron HCl (Zofran Inj) 4 mg Q6H PRN IV 07/06/17 03:45 08/05/17 03:44 07/10/17 13:16 4 MG Albuterol Sulfate (Ventolin 0.083% 2.5MG/3ML Neb) 2.5 mg Q2H PRN INH 07/07/17 16:15 08/06/17 16:14 Calcium Carbonate (Tums Chew Tab) 500 mg AC PO 07/11/17 16:30 08/10/17 16:29 07/12/17 05:56 500 MG Assessment and Plan Problems Acute renal failure Delirium Hyperkalemia Urinary retention Assessment and Plan: Assessment: 87 year old female with acute on chronic renal failure started on dialysis with concomitant electrolyte abnormalities, UTI and hypertension. Plan: 1. Acute on Chronic Renal Failure: Nephrology has consulted. Started first time dialysis on 07/07, IJ catheter inserted, has received dialysis through it, femoral catheter was removed. Electrolytes have normalized to acceptable ranges. Acute exacerbation likely from chronic NSAID use and dehydration. Creatinine now 2.7 down from 5.35 on admission. Baseline creatinine is 1.3 (03/28). Continue following with nephrology. Outpatient dialysis at [place] set up. Per nephrology recommendations will hold HD, and continue hospital stay until clear kidney recovery. Plan to discharge to [facility]. 2. UTI: Ecoli pansensitive, completed Levaquin. 3. Incontinence: Banda catheter and flomax. 4. Hyperkalemia: corrected, K+ is 4.1. BMP q12 5. Hypertension: continue metoprolol 25mg qPM, 50mg qAM.. 6. Hypocalcemia: Increased PTH, 25OH vit D 32, likely due to kidney failure. Improved with 500mg calcium carbonate as well as causing decreased Phosphorus into normal range. 7. Mild anemia: improved with EPO. 8. Left Lower extremity pain: anterior haynes. Unlikely DVT, no swelling. No shortness of breath. Could be traumatic. No sign of cellulitis. DVT prophylaxis: Heparin 5000 units SQ q8h. Disposition: Will continue to observe with hopes of discharging to [facility] for rehab. Continued [facility] stay due to: voiding difficulties Discharge planning: rehab hospital
[2017-07-12] MEDS ORDERED: SODIUM CHLORIDE 0.9% 1000ML 1,000 ML IV SCH (10:00)
--- NOTE | 2017-07-12 10:01 | Nephrology Progress Note ---
Nephrology Progress Note Date of Service Jul 12, 2017. Chief Complaint Acute on CKD Subjective Ms. Worrell was seen & examined in her hospital room this morning. She participated in PT yesterday. She was able to sit on the edge of the bed with assistance and walked 3 ft w/ the use of a rolling walker. PT notes that she fatigues easily. Ms. Worrell denies fever, angina or dyspnea. She voices no new medical concerns Review of Systems Constitutional: No fever Cardiovascular: No chest pain Respiratory: No dyspnea at rest Abdomen: No pain, No nausea Extremities: No leg edema A complete review of systems was performed. Pertinent positives are noted above. All other systems are negative. Vital Signs Last 8 Hrs Date Time Temp Pulse Resp B/P (MAP) Pulse Ox O2 Delivery O2 Flow Rate FiO2 07/12/17 08:05 36.7 62 18 144/54 (84) 92 07/12/17 07:45 Room Air Last Recorded Weight Weight (Kilograms): 80.500 Physical Exam General Appearance: no apparent distress Head: normocephalic, atraumatic Eyes: PERRL Neck: no adenopathy Respiratory/Chest: lungs clear, no respiratory distress Cardiovascular: regular rate, rhythm Abdomen/GI: normal bowel sounds, non tender, soft Genitourinary - Female: + pertinent finding (banda catheter in place draining clear yellow urine) Extremities/Musculoskelatal: no calf tenderness, no pedal edema Neurologic/Psych: alert, oriented x 3 Family History Diabetes mellitus Heart disease Hypertension Social History Drug Use: none Occupation: retired Laboratory Results Past 24 Hours 07/12/17 05:52 Red Blood Count 3.62, Mean Corpuscular Volume 88.1, Mean Corpuscular Hemoglobin 27.6, Mean Corpuscular Hemoglobin Concent 31.3, Mean Platelet Volume 9.3, Neutrophils (%) (Auto) 72.1, Lymphocytes (%) (Auto) 15.1, Monocytes (%) (Auto) 7.7, Eosinophils (%) (Auto) 3.0, Basophils (%) (Auto) 0.3, Neutrophils # (Auto) 10.18, Lymphocytes # (Auto) 2.14, Monocytes # (Auto) 1.09, Eosinophils # (Auto) 0.43, Basophils # (Auto) 0.04 07/12/17 05:52 Test 07/12/17 05:52 White Blood Count 14.14 K/uL (4.8-10.8) Red Blood Count 3.62 M/uL (4.2-5.4) Hemoglobin 10.0 g/dL (12.0-16.0) Hematocrit 31.9 % (37-47) Mean Corpuscular Volume 88.1 fL (80-100) Mean Corpuscular Hemoglobin 27.6 pg (25-34) Mean Corpuscular Hemoglobin Concent 31.3 g/dl (32-36) Platelet Count 158 K/uL (130-400) Mean Platelet Volume 9.3 fL (7.4-10.4) Neutrophils (%) (Auto) 72.1 % Lymphocytes (%) (Auto) 15.1 % Monocytes (%) (Auto) 7.7 % Eosinophils (%) (Auto) 3.0 % Basophils (%) (Auto) 0.3 % Neutrophils # (Auto) 10.18 K/uL (1.4-6.5) Lymphocytes # (Auto) 2.14 K/uL (1.2-3.4) Monocytes # (Auto) 1.09 K/uL (0.11-0.59) Eosinophils # (Auto) 0.43 K/uL (0-0.5) Basophils # (Auto) 0.04 K/uL (0-0.2) RDW Standard Deviation 48.2 fL (36.4-46.3) RDW Coefficient of Variation 14.9 % (11.5-14.5) Immature Granulocyte % (Auto) 1.8 % Immature Granulocyte # (Auto) 0.26 K/uL (0.00-0.02) Anion Gap 5.0 mmol/L (3-11) Est Creatinine Clear Calc Drug Dose 14.0 ml/min Estimated GFR () 17.9 Estimated GFR (Non- 15.4 BUN/Creatinine Ratio 19.2 (10-20) Calcium Level 8.4 mg/dl (8.5-10.1) Phosphorus Level 2.8 mg/dl (2.5-4.9) Magnesium Level 1.9 mg/dl (1.8-2.4) Allergies Coded Allergies: Solifenacin (Verified Allergy, Intermediate, HIVES, 07/06/17) Codeine (Verified Adverse Reaction, Intermediate, DIZZINESS, 07/06/17) Medications Current Inpatient Medications Medications (Trade) Dose Ordered Sig/Niraj Route Start Time Stop Time Status Last Admin Dose Admin Metoprolol Succinate (Toprol Xl Tab) 50 mg QAM PO 07/06/17 09:00 08/05/17 08:59 07/12/17 07:56 50 MG Metoprolol Succinate (Toprol Xl Tab) 25 mg QPM PO 07/06/17 21:00 08/05/17 20:59 07/11/17 20:06 25 MG Pravastatin Sodium (Pravachol Tab) 20 mg HS PO 07/06/17 21:00 08/05/17 20:59 07/11/17 20:06 20 MG Sertraline HCl (Zoloft Tab) 50 mg DAILY PO 07/06/17 09:00 08/05/17 08:59 07/12/17 07:56 50 MG Tamsulosin HCl (Flomax Cap) 0.4 mg DAILY PO 07/06/17 09:00 08/05/17 08:59 07/12/17 07:55 0.4 MG Tramadol HCl (Ultram Tab) 100 mg BID PO 07/06/17 09:00 08/05/17 08:59 07/12/17 07:57 100 MG Heparin Sodium (Porcine) (Heparin Sq 5000 Unit/0.5ml) 5,000 unit Q8H SQ 07/06/17 08:00 08/05/17 07:59 07/12/17 07:53 5,000 UNIT Acetaminophen (Tylenol Tab) 650 mg Q4H PRN PO 07/06/17 03:45 08/05/17 03:44 Al Hydrox/Mg Hydrox/Simethicone (Maalox Max Susp) 15 ml Q4H PRN PO 07/06/17 03:45 08/05/17 03:44 Magnesium Hydroxide (Milk Of Magnesia Susp) 30 ml Q6H PRN PO 07/06/17 03:45 08/05/17 03:44 Polyethylene (Miralax Powder Packet) 17 gm DAILY PRN PO 07/06/17 03:45 08/05/17 03:44 07/11/17 16:14 17 GM Ondansetron HCl (Zofran Inj) 4 mg Q6H PRN IV 07/06/17 03:45 1/7/18 03:44 07/10/17 13:16 4 MG Albuterol Sulfate (Ventolin 0.083% 2.5MG/3ML Neb) 2.5 mg Q2H PRN INH 07/07/17 16:15 08/06/17 16:14 Calcium Carbonate (Tums Chew Tab) 500 mg AC PO 07/11/17 16:30 08/10/17 16:29 07/12/17 05:56 500 MG Impression (1) Acute renal failure (2) Delirium (3) Hyperkalemia (4) Metabolic acidosis (5) Oliguria (6) HTN (hypertension) (7) Proteinuria (8) Hematuria Ms. Worrell is a 87-year-old female w/ PMH of HTN and stage 3 CKD admitted to the hospital with change in mental status, overall declining health, poor p.o. intake over last few weeks and found to have acute kidney injury and significant electrolyte abnormality. On admission creatinine was 5.8 (baseline 1.3-1.4). Renal US unremarkable for postrenal obstruction. Vital sign has been stable. Patient was diagnosed w/ E coli UTI and is currently on Levaquin. Acute kidney injury could be secondary to hemodynamically mediated ATN with poor p.o. intake and taking NSAID regularly, however cannot exclude possibility for acute glomerular and nephritis at this point including anti-GBM or ANCA vasculitis considering proteinuria and hematuria on urinalysis. Serology pending, started on dialysis on 07/06/2017 for significant electrolyte abnormality. Recommendations ACUTE KIDNEY INJURY: -- Likely ATN due to volume depletion in the setting of UTI and NSAID therapy -- Renal US report 07/06: kidneys ~ 9 cm w/ cortical atrophy. No hydro. No stones -- Kidney function is mildly improved. Electrolyte balance is acceptable. Patient is nonoliguric. Will hold HD today and reassess dialysis need in am. -- Will provide gentle hydration today. If kidney function continues to improve will remove IJ THC and banda tomorrow. Discussed w/ primary service and vascular surgery this am -- Recommend continued hospitalization until clear recovery in kidney function -- Awaiting results of vasculitis evaluation (pending as of 07/12 am). UIEP negative for monoclonal protein. CHRONIC KIDNEY DISEASE: -- Baseline creatinine 1.4 HYPERTENSION: -- Mild HTN. Continue Metoprolol. Target SBP 140 - 150 mm HG ANEMIA: -- Hgb within target range 10 - 11. 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 Coli UTI currently on Levaquin OTHER: -- Continue physical therapy for strengthening
--- NOTE | 2017-07-12 12:53 | Hospitalist Progress Note ---
Hospitalist Progress Note Date of Service Jul 12, 2017. (Stacey Deras ., JONAS) Subjective Pt evaluation today including: conversation w/ patient Voiding: banda catheter in place Patient sitting up in bed. Eating and drinking OK. Encouraged to continue w/ PT. Denies any complaints. No HD today. Patient denies any fever, chills, sweats, lightheadedness, dizziness, vision changes, CP, palpitations, edema, SOB, wheezing, cough, abdominal pain, nausea, vomiting, diarrhea, urinary symptoms, melena, numbness/tingling, weakness, muscle/joint pain, anxiety/depression, active bleeding, or new skin discoloration/changes. (Stacey Deras PA-C) Medications Current Inpatient Medications Medications (Trade) Dose Ordered Sig/Niraj Route Start Time Stop Time Status Last Admin Dose Admin Metoprolol Succinate (Toprol Xl Tab) 50 mg QAM PO 07/06/17 09:00 08/05/17 08:59 07/12/17 07:56 50 MG Metoprolol Succinate (Toprol Xl Tab) 25 mg QPM PO 07/06/17 21:00 08/05/17 20:59 07/11/17 20:06 25 MG Pravastatin Sodium (Pravachol Tab) 20 mg HS PO 07/06/17 21:00 08/05/17 20:59 07/11/17 20:06 20 MG Sertraline HCl (Zoloft Tab) 50 mg DAILY PO 07/06/17 09:00 08/05/17 08:59 07/12/17 07:56 50 MG Tamsulosin HCl (Flomax Cap) 0.4 mg DAILY PO 07/06/17 09:00 08/05/17 08:59 07/12/17 07:55 0.4 MG Tramadol HCl (Ultram Tab) 100 mg BID PO 07/06/17 09:00 08/05/17 08:59 07/12/17 07:57 100 MG Heparin Sodium (Porcine) (Heparin Sq 5000 Unit/0.5ml) 5,000 unit Q8H SQ 07/06/17 08:00 08/05/17 07:59 07/12/17 07:53 5,000 UNIT Acetaminophen (Tylenol Tab) 650 mg Q4H PRN PO 07/06/17 03:45 08/05/17 03:44 Al Hydrox/Mg Hydrox/Simethicone (Maalox Max Susp) 15 ml Q4H PRN PO 07/06/17 03:45 08/05/17 03:44 Magnesium Hydroxide (Milk Of Magnesia Susp) 30 ml Q6H PRN PO 07/06/17 03:45 08/05/17 03:44 Polyethylene (Miralax Powder Packet) 17 gm DAILY PRN PO 07/06/17 03:45 08/05/17 03:44 07/11/17 16:14 17 GM Ondansetron HCl (Zofran Inj) 4 mg Q6H PRN IV 07/06/17 03:45 08/05/17 03:44 07/10/17 13:16 4 MG Albuterol Sulfate (Ventolin 0.083% 2.5MG/3ML Neb) 2.5 mg Q2H PRN INH 07/07/17 16:15 08/06/17 16:14 Calcium Carbonate (Tums Chew Tab) 500 mg AC PO 07/11/17 16:30 08/10/17 16:29 07/12/17 11:17 500 MG Sodium Chloride 1,000 ml @ 80 mls/hr [id number] IV 07/12/17 10:00 07/12/17 16:14 07/12/17 11:17 80 MLS/HR (Stacey Deras, PA-C) Objective Vital Signs Date Time Temp Pulse Resp B/P (MAP) Pulse Ox O2 Delivery O2 Flow Rate FiO2 07/12/17 08:05 36.7 62 18 144/54 (84) 92 07/12/17 07:45 Room Air 07/12/17 00:15 Room Air 07/11/17 23:35 36.8 63 20 155/63 (93) 93 Room Air 07/11/17 16:00 92 Room Air 07/11/17 15:12 36.6 61 16 123/68 (86) 92 Room Air (Stacey Deras, PA-C) Physical Exam General Appearance: no apparent distress, + obese Eyes: normal inspection, PERRL ENT: hearing grossly normal Neck: supple Respiratory/Chest: lungs clear, no respiratory distress, no accessory muscle use Cardiovascular: regular rate, rhythm Abdomen: normal bowel sounds, non tender, soft Extremities: no pedal edema, no calf tenderness Neurologic/Psychiatric: alert, normal mood/affect, oriented x 3 Skin: normal color, warm/dry, no rash (Stacey Deras .JONAS) Laboratory Results Last 24 Hours Test 07/12/17 05:52 White Blood Count 14.14 K/uL Red Blood Count 3.62 M/uL Hemoglobin 10.0 g/dL Hematocrit 31.9 % Mean Corpuscular Volume 88.1 fL Mean Corpuscular Hemoglobin 27.6 pg Mean Corpuscular Hemoglobin Concent 31.3 g/dl Platelet Count 158 K/uL Mean Platelet Volume 9.3 fL Neutrophils (%) (Auto) 72.1 % Lymphocytes (%) (Auto) 15.1 % Monocytes (%) (Auto) 7.7 % Eosinophils (%) (Auto) 3.0 % Basophils (%) (Auto) 0.3 % Neutrophils # (Auto) 10.18 K/uL Lymphocytes # (Auto) 2.14 K/uL Monocytes # (Auto) 1.09 K/uL Eosinophils # (Auto) 0.43 K/uL Basophils # (Auto) 0.04 K/uL RDW Standard Deviation 48.2 fL RDW Coefficient of Variation 14.9 % Immature Granulocyte % (Auto) 1.8 % Immature Granulocyte # (Auto) 0.26 K/uL Sodium Level 136 mmol/L Potassium Level 4.1 mmol/L Chloride Level 105 mmol/L Carbon Dioxide Level 26 mmol/L Anion Gap 5.0 mmol/L Blood Urea Nitrogen 52 mg/dl Creatinine 2.70 mg/dl Est Creatinine Clear Calc Drug Dose 14.0 ml/min Estimated GFR () 17.9 Estimated GFR (Non- 15.4 BUN/Creatinine Ratio 19.2 Random Glucose 103 mg/dl Calcium Level 8.4 mg/dl Phosphorus Level 2.8 mg/dl Magnesium Level 1.9 mg/dl (Stacey Deras PA-C) Assessment and Plan 87 y/o F Hx HTN, urinary incontinence. The pt has exhibited progressive confusion over the last few days. She was brought to her primary MD by her son. Labs were obtained and a markedly elevated BUN/creat was noted. She was instructed to attend the hospital therefore. She is unable to provide a meaningful history. Her son is present at bedside and denies that she had complained of additional symptoms such as fevers/rigors, n/v/d or dysuria although she is chronically incontinent. Metabolic/uremic encephalopathy, secondary to OTILIA on CKD stage III, likely secondary to ATN: - Admitted to tele for cardiac monitoring- no acute events, transferred to med/ surg - Treated w/ IVF - Emergent access and dialysis started on 07/06 - Renal US- no hydro/obstruction - Renally dose medications as appropriate and avoid nephrotoxic agents - Nephrology following -- Vasculitis workup pending -- Continue hospital stay until clear recovery in kidney function -- Gently hydration w/ IV NSS @ 80 ml/hr x1 today -- Cr 2.70 from 2.79 despite no HD yesterday- no HD today, may remove IJ THC/ Banda tomorrow pending PRP -- Outpatient referral for [facility] - Consulted Vascular surgery- PermCath insertion by Dr. Horne on 07/09 for continued dialysis UTI- UCx growing E.coli: Levaquin x5 days treatment completed Hyperphosphatemia: - Tums TID - Follow phosphate level Hyperkalemia- RESOLVED: Treated w/ Kayexalate and IVF HTN: Metoprolol 25 mg HS and 50 mg QAM w/ hold parameters HLD: Pravastatin 20 mg HS Incontinence: Continue Flomax 0.4 mg HS DVT prophylaxis: Heparin SQ TID Code Status: LEVEL I, FULL Dispo: Rehab at discharge pending kidney function improvement- PT/OT and CM following (Stacey Deras ., PA-C) I agree with PA assessment and plan and have seen and examined pt myself Resting comfortably in bed No distress noted, pt does note feeling weak, PT rec rehab, pt in agreement Delirium resolved VSS Labs reviewed Cr mildly improving Appreciate nephro recs Await further renal recovery Monitor urine output which is improving, currently non-oliguric Central line placed, may be able to be removed (Nabeel Clements D.O.)
[2017-07-12 14:22] LABS: BUN/CREATININE RATIO 18.6 (10-20); CALCIUM 8.3 mg/dl (8.5-10.1); CREATININE 2.68 mg/dl (0.60-1.20)
[2017-07-12 15:31] LABS: ALBUMIN 2.9 G/DL (3.8-4.8); GAMMA GLOBULIN 1.6 G/DL (0.8-1.7); MYELOPEROXIDASE AB <1.0 AI (<1.0)
[2017-07-12 15:40] VITALS: BP 137/64; PULSE 69; TEMP 36.9; O2SAT 92
[2017-07-12 16:00] VITALS: O2SAT 92
[2017-07-12] MEDS: PRAVASTATIN SOD 20 MG TAB PO SCH (19:58)
[2017-07-13] VITALS (9 sets, daily range): BP systolic 154–189; BP diastolic 74–89; PULSE 60–73; TEMP 36.9–37.1; O2SAT 93–95
[2017-07-13] MEDS: HEPARIN SOD 5000 UNIT/0.5 ML CARP SQ SCH ×3 (05:58→17:26)
[2017-07-13] MEDS: CALCIUM CARBONATE 500 MG CHEWABLE PO SCH ×2 (05:59→11:18)
[2017-07-13 07:18] LABS: BASO % 0.2 %; BASO ABS # 0.02 K/uL (0-0.2); COMPLETE YES; EOS % 3.4 %; IG% 1.8 %; LYMPH % 12.1 %; LYMPH ABS # 1.39 K/uL (1.2-3.4); MEAN CELL VOLUME 88.6 fL (80-100); MEAN CORPUSCULAR HEMOGLOBIN 27.7 pg (25-34); MEAN CORPUSCULAR HGB CONC 31.3 g/dl (32-36); MEAN PLATELET VOLUME 9.4 fL (7.4-10.4); MONO % 9.3 %; NEUT % 73.2 %; PLATELET COUNT 153 K/uL (130-400); RED BLOOD COUNT 3.61 M/uL (4.2-5.4); WHITE BLOOD COUNT 11.48 K/uL (4.8-10.8)
[2017-07-13 07:51] LABS: BUN/CREATININE RATIO 17.1 (10-20); CALCIUM 8.3 mg/dl (8.5-10.1); CREATININE 2.69 mg/dl (0.60-1.20); POTASSIUM 4.3 mmol/L (3.5-5.1)
--- NOTE | 2017-07-13 08:30 | Medical Student: [facility] ---
Med Student Progress Note Date of Service Jul 13, 2017. Subjective Pt evaluation today including: conversation w/ patient, physical exam, chart review, lab review, review of studies, review of inpatient medication list Voiding: banda catheter in place 87 year old female with history of stage 3 CKD presenting with AMS found to have creatinine of 5.35 (baseline 1.3) diagnosed with acute on chronic renal failure likely due to chronic NSAID use and dehydration. Seen by nephrology and started on dialysis, IJ catheter in place. She is oriented x3 today and has no current complaints. Urine output has improved to 825ml of urine yesterday. Creatinine is 2.69 today. Electrolytes are within acceptable ranges. Nephrology has set her up with outpatient dialysis at [place]. She will get outpatient rehabilitation at [facility]. Nephrology has suggested continuing hospital stay until there is clear improvement in kidney function, she shows mild improvement today as evidenced by urine output. Would recommend discharge to [facility]. Review of Systems Constitutional: No fever, No chills Respiratory: No cough, No sputum, No wheezing, No shortness of breath Cardiac: No chest pain, No orthopnea, No edema, No palpitations Abdomen: No pain, No nausea, No vomiting, No diarrhea, No constipation Female : No dysuria, No urinary frequency All Other Systems: Reviewed and Negative Objective Vital Signs Date Time Temp Pulse Resp B/P (MAP) Pulse Ox O2 Delivery O2 Flow Rate FiO2 07/13/17 07:20 36.9 65 18 167/89 (115) 94 Room Air 07/13/17 01:00 66 156/77 (103) 07/13/17 00:50 37.0 67 18 168/81 (110) 94 Room Air 07/13/17 00:01 Room Air 07/12/17 16:00 92 Room Air 07/12/17 15:40 36.9 69 18 137/64 (88) 92 Room Air Physical Exam General Appearance: WD/WN, no apparent distress Eyes: bilateral eyes normal inspection, bilateral eyes EOMI ENT: hearing grossly normal, pharynx normal Neck: supple, no JVD Respiratory/Chest: chest non-tender, lungs clear, normal breath sounds, no respiratory distress, no accessory muscle use Cardiovascular: regular rate, rhythm, no edema, no gallop, no JVD, no murmur Abdomen: normal bowel sounds, non tender, soft, no organomegaly, no pulsatile mass Extremities: non-tender, normal inspection, no pedal edema, no calf tenderness Neurologic/Psychiatric: alert, normal mood/affect, oriented x 3 Skin: normal color, warm/dry, no rash Laboratory Results Last 24 Hours Test 07/12/17 13:33 07/13/17 07:04 Sodium Level 136 mmol/L 140 mmol/L Potassium Level 4.0 mmol/L 4.3 mmol/L Chloride Level 105 mmol/L 106 mmol/L Carbon Dioxide Level 27 mmol/L 29 mmol/L Anion Gap 4.0 mmol/L 4.0 mmol/L Blood Urea Nitrogen 50 mg/dl 46 mg/dl Creatinine 2.68 mg/dl 2.69 mg/dl Est Creatinine Clear Calc Drug Dose 14.1 ml/min 14.0 ml/min Estimated GFR () 18.1 18.0 Estimated GFR (Non- 15.6 15.5 BUN/Creatinine Ratio 18.6 17.1 Random Glucose 122 mg/dl 99 mg/dl Calcium Level 8.3 mg/dl 8.3 mg/dl White Blood Count 11.48 K/uL Red Blood Count 3.61 M/uL Hemoglobin 10.0 g/dL Hematocrit 32.0 % Mean Corpuscular Volume 88.6 fL Mean Corpuscular Hemoglobin 27.7 pg Mean Corpuscular Hemoglobin Concent 31.3 g/dl Platelet Count 153 K/uL Mean Platelet Volume 9.4 fL Neutrophils (%) (Auto) 73.2 % Lymphocytes (%) (Auto) 12.1 % Monocytes (%) (Auto) 9.3 % Eosinophils (%) (Auto) 3.4 % Basophils (%) (Auto) 0.2 % Neutrophils # (Auto) 8.40 K/uL Lymphocytes # (Auto) 1.39 K/uL Monocytes # (Auto) 1.07 K/uL Eosinophils # (Auto) 0.39 K/uL Basophils # (Auto) 0.02 K/uL RDW Standard Deviation 48.6 fL RDW Coefficient of Variation 15.2 % Immature Granulocyte % (Auto) 1.8 % Immature Granulocyte # (Auto) 0.21 K/uL Medications Current Inpatient Medications Medications (Trade) Dose Ordered Sig/Niraj Route Start Time Stop Time Status Last Admin Dose Admin Metoprolol Succinate (Toprol Xl Tab) 50 mg QAM PO 07/06/17 09:00 08/05/17 08:59 07/12/17 07:56 50 MG Metoprolol Succinate (Toprol Xl Tab) 25 mg QPM PO 07/06/17 21:00 08/05/17 20:59 07/12/17 19:58 25 MG Pravastatin Sodium (Pravachol Tab) 20 mg HS PO 07/06/17 21:00 08/05/17 20:59 07/12/17 19:58 20 MG Sertraline HCl (Zoloft Tab) 50 mg DAILY PO 07/06/17 09:00 08/05/17 08:59 07/12/17 07:56 50 MG Tamsulosin HCl (Flomax Cap) 0.4 mg DAILY PO 07/06/17 09:00 08/05/17 08:59 07/12/17 07:55 0.4 MG Tramadol HCl (Ultram Tab) 100 mg BID PO 07/06/17 09:00 08/05/17 08:59 07/12/17 19:58 100 MG Heparin Sodium (Porcine) (Heparin Sq 5000 Unit/0.5ml) 5,000 unit Q8H SQ 07/06/17 08:00 08/05/17 07:59 07/13/17 05:58 5,000 UNIT Acetaminophen (Tylenol Tab) 650 mg Q4H PRN PO 07/06/17 03:45 08/05/17 03:44 Al Hydrox/Mg Hydrox/Simethicone (Maalox Max Susp) 15 ml Q4H PRN PO 07/06/17 03:45 08/05/17 03:44 Magnesium Hydroxide (Milk Of Magnesia Susp) 30 ml Q6H PRN PO 07/06/17 03:45 08/05/17 03:44 Polyethylene (Miralax Powder Packet) 17 gm DAILY PRN PO 07/06/17 03:45 08/05/17 03:44 07/11/17 16:14 17 GM Ondansetron HCl (Zofran Inj) 4 mg Q6H PRN IV 07/06/17 03:45 08/05/17 03:44 07/10/17 13:16 4 MG Albuterol Sulfate (Ventolin 0.083% 2.5MG/3ML Neb) 2.5 mg Q2H PRN INH 07/07/17 16:15 08/06/17 16:14 Calcium Carbonate (Tums Chew Tab) 500 mg AC PO 07/11/17 16:30 08/10/17 16:29 07/13/17 05:59 500 MG Assessment and Plan Problems Acute renal failure Delirium Hyperkalemia Urinary retention Assessment and Plan: Assessment: 87 year old female with acute on chronic renal failure started on dialysis. Plan: 1. Acute on Chronic Renal Failure: Nephrology has consulted. Started first time dialysis on 07/07, IJ catheter inserted, has received dialysis through it, femoral catheter was removed. Electrolytes have normalized to acceptable ranges. Acute exacerbation likely from chronic NSAID use and dehydration. Creatinine now 2.69 down from 5.35 on admission. Baseline creatinine is 1.3 (). Continue following with nephrology. Outpatient dialysis at [place] set up. Per nephrology recommendations will hold HD, and continue hospital stay until clear kidney recovery. Urine output improving. Immunology panel was negative. Plan to remove IJ catheter today and remove Banda catheter. Plan to discharge to [facility]. 2. UTI: Ecoli pansensitive, completed Levaquin. Resolved 3. Incontinence: Banda catheter and flomax. 4. Hyperkalemia: corrected, K+ is 4.3. BMP q12 5. Hypertension: continue metoprolol 25mg qPM, 50mg qAM.. 6. Hypocalcemia: Increased PTH, 25OH vit D 32, likely due to kidney failure. Improved with 500mg calcium carbonate as well as causing decreased Phosphorus into normal range. 7. Mild anemia: improved with EPO. 8. Left Lower extremity pain: Resolved 9. DVT prophylaxis: Heparin 5000 units SQ q8h. Disposition: Will likely discharge to [facility] for rehab today. Continued [facility] stay due to: voiding difficulties Discharge planning: rehab hospital
[2017-07-13] MEDS: SERTRALINE HCL 50 MG TAB PO SCH (08:39)
[2017-07-13] MEDS: TAMSULOSIN HCL 0.4 MG CAP PO SCH (08:39)
[2017-07-13] MEDS: METOPROLOL SUCC 25MG EXT REL TAB PO SCH (08:39)
[2017-07-13] MEDS: TRAMADOL HCL 50 MG TAB PO SCH (08:39)
--- NOTE | 2017-07-13 10:47 | Nephrology Progress Note ---
Nephrology Progress Note Date of Service Jul 13, 2017. Chief Complaint Acute on CKD Subjective Ms. Worrell was seen & examined in her hospital room this morning. She was sitting up in bed breathing comfortably on room air. She did participate w/ PT yesterday and was able to sit on the edge of the bed and ambulate w/ a rolling walker with minimal assistance. Review of Systems Constitutional: No fever Cardiovascular: No chest pain Respiratory: No dyspnea at rest Abdomen: No nausea, No vomiting Extremities: No leg edema A complete review of systems was performed. Pertinent positives are noted above. All other systems are negative. Vital Signs Last 8 Hrs Date Time Temp Pulse Resp B/P (MAP) Pulse Ox O2 Delivery O2 Flow Rate FiO2 07/13/17 07:50 Room Air 07/13/17 07:20 36.9 65 18 167/89 (115) 94 Room Air Last Recorded Weight Weight (Kilograms): 80.500 Physical Exam General Appearance: no apparent distress Head: normocephalic, atraumatic Eyes: PERRL, EOMI Neck: no adenopathy Respiratory/Chest: lungs clear Cardiovascular: regular rate, rhythm Abdomen/GI: normal bowel sounds, non tender, soft Extremities/Musculoskelatal: no calf tenderness, no pedal edema Neurologic/Psych: alert, oriented x 3 Family History Diabetes mellitus Heart disease Hypertension Social History Drug Use: none Occupation: retired Laboratory Results Past 24 Hours 07/13/17 07:04 Red Blood Count 3.61, Mean Corpuscular Volume 88.6, Mean Corpuscular Hemoglobin 27.7, Mean Corpuscular Hemoglobin Concent 31.3, Mean Platelet Volume 9.4, Neutrophils (%) (Auto) 73.2, Lymphocytes (%) (Auto) 12.1, Monocytes (%) (Auto) 9.3, Eosinophils (%) (Auto) 3.4, Basophils (%) (Auto) 0.2, Neutrophils # (Auto) 8.40, Lymphocytes # (Auto) 1.39, Monocytes # (Auto) 1.07, Eosinophils # (Auto) 0.39, Basophils # (Auto) 0.02 07/12/17 13:33 07/13/17 07:04 Test 07/12/17 13:33 07/13/17 07:04 Anion Gap 4.0 mmol/L (3-11) 4.0 mmol/L (3-11) Est Creatinine Clear Calc Drug Dose 14.1 ml/min 14.0 ml/min Estimated GFR () 18.1 18.0 Estimated GFR (Non- 15.6 15.5 BUN/Creatinine Ratio 18.6 (10-20) 17.1 (10-20) Calcium Level 8.3 mg/dl (8.5-10.1) 8.3 mg/dl (8.5-10.1) White Blood Count 11.48 K/uL (4.8-10.8) Red Blood Count 3.61 M/uL (4.2-5.4) Hemoglobin 10.0 g/dL (12.0-16.0) Hematocrit 32.0 % (37-47) Mean Corpuscular Volume 88.6 fL (80-100) Mean Corpuscular Hemoglobin 27.7 pg (25-34) Mean Corpuscular Hemoglobin Concent 31.3 g/dl (32-36) Platelet Count 153 K/uL (130-400) Mean Platelet Volume 9.4 fL (7.4-10.4) Neutrophils (%) (Auto) 73.2 % Lymphocytes (%) (Auto) 12.1 % Monocytes (%) (Auto) 9.3 % Eosinophils (%) (Auto) 3.4 % Basophils (%) (Auto) 0.2 % Neutrophils # (Auto) 8.40 K/uL (1.4-6.5) Lymphocytes # (Auto) 1.39 K/uL (1.2-3.4) Monocytes # (Auto) 1.07 K/uL (0.11-0.59) Eosinophils # (Auto) 0.39 K/uL (0-0.5) Basophils # (Auto) 0.02 K/uL (0-0.2) RDW Standard Deviation 48.6 fL (36.4-46.3) RDW Coefficient of Variation 15.2 % (11.5-14.5) Immature Granulocyte % (Auto) 1.8 % Immature Granulocyte # (Auto) 0.21 K/uL (0.00-0.02) Allergies Coded Allergies: Solifenacin (Verified Allergy, Intermediate, HIVES, 07/06/17) Codeine (Verified Adverse Reaction, Intermediate, DIZZINESS, 07/06/17) Medications Current Inpatient Medications Medications (Trade) Dose Ordered Sig/Niraj Route Start Time Stop Time Status Last Admin Dose Admin Metoprolol Succinate (Toprol Xl Tab) 50 mg QAM PO 07/06/17 09:00 08/05/17 08:59 07/13/17 08:39 50 MG Metoprolol Succinate (Toprol Xl Tab) 25 mg QPM PO 07/06/17 21:00 08/05/17 20:59 07/12/17 19:58 25 MG Pravastatin Sodium (Pravachol Tab) 20 mg HS PO 07/06/17 21:00 08/05/17 20:59 07/12/17 19:58 20 MG Sertraline HCl (Zoloft Tab) 50 mg DAILY PO 07/06/17 09:00 08/05/17 08:59 07/13/17 08:39 50 MG Tamsulosin HCl (Flomax Cap) 0.4 mg DAILY PO 07/06/17 09:00 08/05/17 08:59 07/13/17 08:39 0.4 MG Tramadol HCl (Ultram Tab) 100 mg BID PO 07/06/17 09:00 08/05/17 08:59 07/13/17 08:39 100 MG Heparin Sodium (Porcine) (Heparin Sq 5000 Unit/0.5ml) 5,000 unit Q8H SQ 07/06/17 08:00 08/05/17 07:59 07/13/17 08:43 5,000 UNIT Acetaminophen (Tylenol Tab) 650 mg Q4H PRN PO 07/06/17 03:45 08/05/17 03:44 Al Hydrox/Mg Hydrox/Simethicone (Maalox Max Susp) 15 ml Q4H PRN PO 07/06/17 03:45 08/05/17 03:44 Magnesium Hydroxide (Milk Of Magnesia Susp) 30 ml Q6H PRN PO 07/06/17 03:45 08/05/17 03:44 Polyethylene (Miralax Powder Packet) 17 gm DAILY PRN PO 07/06/17 03:45 08/05/17 03:44 07/11/17 16:14 17 GM Ondansetron HCl (Zofran Inj) 4 mg Q6H PRN IV 07/06/17 03:45 08/05/17 03:44 12/12/17 13:16 4 MG Albuterol Sulfate (Ventolin 0.083% 2.5MG/3ML Neb) 2.5 mg Q2H PRN INH 07/07/17 16:15 08/06/17 16:14 Calcium Carbonate (Tums Chew Tab) 500 mg AC PO 07/11/17 16:30 08/10/17 16:29 07/13/17 05:59 500 MG Impression (1) Acute renal failure (2) Delirium (3) Hyperkalemia (4) Metabolic acidosis (5) Oliguria (6) HTN (hypertension) (7) Proteinuria (8) Hematuria Ms. Worrell is a 87-year-old female w/ PMH of HTN and stage 3 CKD admitted to the hospital with change in mental status, overall declining health, poor p.o. intake over last few weeks and found to have acute kidney injury and significant electrolyte abnormality. On admission creatinine was 5.8 (baseline 1.3-1.4). Renal US unremarkable for postrenal obstruction. Vital sign has been stable. Patient was diagnosed w/ E coli UTI and is currently on Levaquin. Acute kidney injury could be secondary to hemodynamically mediated ATN with poor p.o. intake and taking NSAID regularly. Serology negative, started on dialysis on 07/06/2017 for significant electrolyte abnormality. Recommendations ACUTE KIDNEY INJURY: -- Likely ATN due to volume depletion in the setting of UTI and NSAID therapy -- Renal US report 07/06: kidneys ~ 9 cm w/ cortical atrophy. No hydro. No stones -- Vasculitis evaluation is negative. UIEP negative for monoclonal protein. -- Kidney function is mildly improved. Electrolyte balance is acceptable. Patient is nonoliguric. Will hold HD and ask vascular surgery to remove IJ THC today -- Will remove banda catheter this morning -- If discharge is anticipated please schedule patient to follow up with Dr. Hinton within two weeks of hospital discharge ([phone]) CHRONIC KIDNEY DISEASE: -- Baseline creatinine 1.4 HYPERTENSION: -- Mild HTN. Continue Metoprolol. Target SBP 140 - 150 mm HG ANEMIA: -- Hgb within target range 10 - 11. 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 Coli UTI currently on Levaquin OTHER: -- Continue physical therapy for strengthening
--- NOTE | 2017-07-13 13:19 | Discharge Instructions ---
Discharge Instructions Date of Service Jul 13, 2017. Admission Reason for Admission: Altered Mental Status, Arf Discharge Discharge Diagnosis / Problem: Acute renal failure Discharge Goals Goal(s): Decrease discomfort, Improve function, Increase independence, Improve disease control, Learn about illness, Diagnostic testing, Therapeutic intervention, Prevent Disease Progression Activity Recommendations Activity Level: Assistance Required Therapies: Physical Therapy, Occupational Therapy . Additional Information Patient informed of condition: Yes Advance Directives: No DNR: No Level of Care: Acute Rehab Communicable Disease: No Prognosis: Improving Lynn Catheter: No Instructions / Follow-Up Instructions / Follow-Up Metabolic/uremic encephalopathy, secondary to OTILIA on CKD stage III, likely secondary to ATN: - Admitted to tele for cardiac monitoring- no acute events, transferred to med/ surg - Treated w/ IVF, emergent access and dialysis started on 07/06 - Consulted Vascular surgery- PermCath insertion by Dr. Horne on 07/09 for continued dialysis - Renal US- no hydro/obstruction - Renally dose medications as appropriate and avoid nephrotoxic agents - Nephrology following -- Vasculitis workup -- Gently hydration w/ IV NSS @ 80 ml/hr x1 on 07/12 -- Removed IJ THC/Lynn on 07/13- Cr. stable at 2.69 -- Follow-up with Dr. Hinton in 1-2 weeks UTI- UCx growing E.coli: Levaquin x5 days treatment completed Hyperphosphatemia- RESOLVED: - Tums TID - Follow phosphate level Hyperkalemia- RESOLVED: Treated w/ Kayexalate and IVF HTN: Metoprolol 25 mg HS and 50 mg QAM w/ hold parameters HLD: Pravastatin 20 mg HS Incontinence: Continue Flomax 0.4 mg HS DVT prophylaxis: Heparin SQ TID Code Status: LEVEL I, FULL Dispo: Discharge to [facility] FOLLOW-UPS: Follow-up with [facility] provider within 24-48 hours Please follow-up with your PCP within 5-7 days after discharge from [facility] Please follow-up with Nephrology, Dr. Hinton within 1-2 weeks Please follow-up/keep all of your subspecialty appointments Current Hospital Diet Patient's current hospital diet: Renal Diet Discharge Diet Recommended Diet: Renal Diet Procedures Procedures Performed: Insertion Of Perm Catheter, Right Jugular Approach Ultrasound Localization of Right Jugular Vein Fluoroscopy for Positioning Moderate Sedation [id number] Pending Studies Studies pending at discharge: no Physician Orders On Transfer Special Precautions: Fall precautions IV Therapy: None Vital Signs: Routine Additional Orders: Repeat BMP in 1 week (07/20) POLST Discussion: Not Applicable Medical Emergencies . Who to Call and When: Medical Emergencies: If at any time you feel your situation is an emergency, please call 911 immediately. . Non-Emergent Contact Non-Emergency issues call your: Primary Care Provider . . "Provider Documentation" section prepared by Stacey Deras. . Core Measure Problem Core Measures: None
--- NOTE | 2017-07-13 13:25 | Discharge Summary ---
Discharge Summary Date of Service Jul 13, 2017. Discharge Summary Admission Date: Jul 06, 2017 at 03:38 Discharge Date: Jul 13, 2017 Discharge Disposition: Rehab Principal Diagnosis: Acute renal failure Problems/Secondary Diagnoses: Metabolic/uremic encephalopathy OTILIA on CKD stage III, secondary to ATN UTI Hyperphosphatemia Hyperkalemia HTN HLD Incontinence Procedures: ULTRASOUND KIDNEYS AND BLADDER CLINICAL HISTORY: Change in mental status. COMPARISON STUDY: Abdominal CT dated 09/18/2016. TECHNIQUE: Real-time, grayscale, and color flow sonography of the kidneys and bladder is performed. Images are reviewed in the transverse and longitudinal planes. FINDINGS: Kidneys: The kidneys are atrophic and demonstrate increased echotexture consistent with medical renal disease. The right kidney measures 8.3 x 4.7 x 3.3 cm and the left kidney measures 9.5 x 4.6 x 4.1 cm. There is no hydronephrosis. No shadowing renal calculi are identified. Scattered renal cysts measure up to 1.7 cm. There is no sonographic evidence of contour deforming renal mass lesion. Foci of cortical scarring are observed. No perinephric fluid is identified. Bladder: The bladder is decompressed and could not be evaluated. Upper abdomen: A 3.0 cm echogenic lesion is identified in the liver. IMPRESSION: 1. The kidneys are atrophic and echogenic consistent with medical renal disease. 2. There is no hydronephrosis. 3. The bladder was decompressed and could not be evaluated. 4. A 3.0 cm echogenic lesion is identified in the liver. Although indeterminant, this was seen on prior abdominal CT scans and likely represents a hemangioma. Electronically signed by: Uvaldo Reyes M.D. 07/06/2017 7:09 AM Dictated Date/Time: 07/06/2017 7:06 AM The status of this report is Signed. Draft = Not yet reviewed or approved by Radiologist. Signed = Reviewed and approved by Radiologist. CHEST ONE VIEW PORTABLE HISTORY: 87 years-old Female congestion on lung ascultation COMPARISON: Chest radiographs 07/26/2015, chest CT 04/12/2017 TECHNIQUE: Portable AP view of the chest FINDINGS: Cardiac silhouette is within normal limits. There is persistent mild prominence of the mediastinum. Atherosclerosis of the aorta. No pneumothorax or large pleural effusion. Subsegmental patchy bibasilar opacities are present, left greater than right. Severe degenerative changes of the left greater the right shoulders with associated remodeling and periarticular calcifications. IMPRESSION: 1. Patchy subsegmental left greater than right bibasilar opacities suggest atelectasis or pneumonitis. 2. No overt pulmonary edema. The above report was generated using voice recognition software. It may contain grammatical, syntax or spelling errors. Electronically signed by: Aly Ellsworth M.D. 07/08/2017 9:36 AM Dictated Date/Time: 07/08/2017 9:33 AM The status of this report is Signed. Draft = Not yet reviewed or approved by Radiologist. Signed = Reviewed and approved by Radiologist. Procedure Note Procedure Date Jul 06, 2017. Central Line Procedure time out: side/site verified, patient ID confirmed, sterile procedure used Consent obtained: verbal (telephone consent with son) Time of procedure: 11:00 Performed by: attending Indications: other (hemodialysis catheter) Prep: chlorhexadine prep, sterile drape, sterile procedures used Anesthesia: lidocaine 1% without epi Volume anesthetic (ml's): 2 Central line lumen: double Central line location: femoral (R) Additional details: ultrasound guidance (dynamic), Selinger technique used, line sutured, good blood return CXR: other (not applicable) Complications: none Patient tolerated procedure: well Post-procedure vital signs: reviewed and stable <Electronically signed by Primo Vance D.O.> Signed: 07/07/17 1519 Signed: The status of this report is Signed * If report status is Draft, the document has not been finalized by the responsible provider. Operative Report Operative Date Jul 09, 2017. Pre-Operative Diagnosis Acute Renal Failure Post-Operative Diagnosis Same Procedure(s) Performed Insertion Of Perm Catheter, Right Jugular Approach Ultrasound Localization of Right Jugular Vein Fluoroscopy for Positioning Moderate Sedation [id number] Surgeon Ozzie Inspector Packer Glass Container Surgeon(s) Alycia Estimated Blood Loss 5 Findings Perm Cath tip in SVC Specimens none Drains 19 cm Tunnelled Perm cath in R IJ Anesthesia Local with sedation Complication(s) None Disposition Consultations: Nephrology Judicial Law Clerk Vascular surgery Medication Reconciliation Continued Medications: Cholecalciferol (Vitamin D 1000 Unit) 1,000 Unit Cap 1000 INTER.UNIT PO DAILY, CAP Metoprolol Succ (Toprol Xl) (Toprol-Xl) 25 Mg Tabcr 50 MG PO QAM Metoprolol Succinate (Metoprolol Succinate ER) 25 Mg Tabcr 25 MG PO QPM Multiple Vitamins W/ Minerals (Centrum Silver Ultra Wome) 1 Tab Tab 1 TAB PO QAM Pravastatin (Pravachol ) 20 Mg Tab 20 MG PO HS, TAB Sertraline (Zoloft) 50 Mg Tab 50 MG PO DAILY, TAB Tamsulosin Hcl (Flomax) 0.4 Mg Cap 0.4 MG PO DAILY, CAP Tramadol (Ultram) 50 Mg Tab 100 MG PO BID for 5 Days, #20 TAB Discontinued Medications: Potassium (Potassium) 99 Mg Tab 99 MG PO DAILY Referrals At Discharge Follow up Referrals: Sterile Proc Tech Referral - Within 1-2 Weeks with Leeroy Hinton M.D. Discharge Exam Review of Systems: Constitutional: No fever, No chills, No sweats, No weakness, No fatigue Eyes: No worsening of vision ENT: No hearing loss Respiratory: No cough, No shortness of breath, No hemoptysis Cardiovascular: No chest pain, No edema, No palpitations Abdomen: No pain, No nausea, No vomiting, No diarrhea, No constipation Musculoskeletal: No joint pain, No muscle pain, No swelling, No calf pain Neurologic: No weakness, No numbness/tingling Psychiatric: No depression symptoms, No anxiety Endocrine: No fatigue Hematologic / Lymphatic: No abnormal bleeding/bruising Integumentary: No rash, No itch, No new/changing skin lesions Physical Exam: General Appearance: no apparent distress, + obese Eyes: normal inspection, PERRL ENT: hearing grossly normal Neck: supple Respiratory/Chest: lungs clear, no respiratory distress, no accessory muscle use Cardiovascular: regular rate, rhythm Abdomen / GI: normal bowel sounds, non tender, soft Extremities: no calf tenderness, no pedal edema Neurologic/Psychiatric: alert, normal mood/affect, oriented x 3 Skin: normal color, warm/dry, no rash Hospital Course Admission H&P: 87 y/o F Hx HTN, urinary incontinence. The pt has exhibited progressive confusion over the last few days. She was brought to her primary MD by her son. Labs were obtained and a markedly elevated BUN/creat was noted. She was instructed to attend the hospital therefore. She is unable to provide a meaningful history. Her son is present at bedside and denies that she had complained of additional symptoms such as fevers/rigors, n/v/d or dysuria although she is chronically incontinent. 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), lungs clear Cardiovascular: regular rate, rhythm, no edema, no gallop Abdomen/GI: normal bowel sounds, + pertinent finding (Abdomen is soft ad distended - there was no tenderness to palpation of the suprapubic area) Extremities/Musculoskelatal: normal inspection, no calf tenderness, normal capillary refill Neurologic/Psych: + pertinent finding (Confusion is present - she can follow commands and speak clearly - there are no unilateral focal signs) Skin: normal color, warm/dry, no rash Hospital Course: Metabolic/uremic encephalopathy, secondary to TOILIA on CKD stage III, likely secondary to ATN: - Admitted to tele for cardiac monitoring- no acute events, transferred to med/ surg - Treated w/ IVF, emergent access and dialysis started on 07/06 - Consulted Vascular surgery- PermCath insertion by Dr. Horne on 07/09 for continued dialysis - Renal US- no hydro/obstruction - Renally dose medications as appropriate and avoid nephrotoxic agents - Nephrology following -- Vasculitis workup -- Gently hydration w/ IV NSS @ 80 ml/hr x1 on 07/12 -- Removed IJ THC/Lynn on 07/13- Cr. stable at 2.69 -- Follow-up with Dr. Hinton in 1-2 weeks - REPEAT BMP IN ONE WEEK (07/20) AFTER DISCHARGE UTI- UCx growing E.coli: Levaquin x5 days treatment completed Hyperphosphatemia- RESOLVED: - Tums TID - Follow phosphate level Hyperkalemia- RESOLVED: Treated w/ Kayexalate and IVF HTN: Metoprolol 25 mg HS and 50 mg QAM w/ hold parameters HLD: Pravastatin 20 mg HS Incontinence: Continue Flomax 0.4 mg HS DVT prophylaxis: Heparin SQ TID Code Status: LEVEL I, FULL Dispo: Discharge to [facility] Total Time Spent: Greater than 30 minutes This includes examination of the patient, discharge planning, medication reconciliation, and communication with other providers. Discharge Instructions Please refer to the electronic Patient Visit Report (Discharge Instructions) for additional information. Follow-Up Follow-up with [facility] provider within 24-48 hours Please follow-up with your PCP within 5-7 days after discharge from [facility] Please follow-up with Nephrology, Dr. Hinton within 1-2 weeks Please follow-up/keep all of your subspecialty appointments [facility]
[2017-07-13] MEDS ORDERED: LIDOCAINE HCL 1% 20 ML VIAL ONE (13:54)
--- NOTE | 2017-07-13 16:23 | Progress Note ---
Progress Note Date of Service Jul 13, 2017. Progress Note Patient for permcath removal. I have discussed the risks options and benefits of the procedure with the patient. The patient understands the risks options and benefits and agrees to the procedure. I have examined the patient, reviewed the History & Physical and in the interval since the performance of the History & Physical I have noted the following changes of clinical significance: No changes noted
--- NOTE | 2017-07-13 16:59 | [facility] Operative Report ---
Operative Report Operative Date Jul 13, 2017. Pre-Operative Diagnosis functioning kidneys Post-Operative Diagnosis same Procedure(s) Performed Removal Of Perm Catheter Surgeon Dr. Horne Chemical Production Technician Surgeon(s) none Estimated Blood Loss 0 Findings cuff and catheter removed Specimens A. explanted perm catheter Drains 19 cm Tunnelled Perm cath in R IJ Anesthesia Local with sedation Complication(s) None Disposition Indications This is an 87-year-old female who had a PermCath placed for hemodialysis purposes. She now has better kidney function and no longer needs the PermCath. It is recommended that we remove the PermCath. I have discussed the risks options and benefits of the procedure with the patient. The patient understands the risks options and benefits and agrees to the procedure. Description of Procedure The patient was taken to the angio suite and placed in the supine position. The right side of the neck, chest wall and catheter were prepped and draped in a sterile manner. Local anesthesia was then accomplished. Using sharp and blunt dissection, the cuff of the permcath was freed up from the surrounding fibrous tissue. The permcath and cuff were completely removed. Pressure was then applied and adequate hemostasis was obtained. A sterile dressing was then applied. The patient left the angio suite in good condition and tolerated the procedure well. I attest to the content of the Intraoperative Record and any orders documented therein. Any exceptions are noted below.
== END 2017-07-13 18:34 | DRG 682 ==
LOC: C.EDB 01:46 → C.MSICU 03:38 → ENRESERV 03:46 → CANRESERV 03:46 → EDBEDREQSVC 04:07 → ENRESERV 04:21 → C.2T 07-08 06:00 → ENRESERV 07-10 11:28 → C.MS4W 07-10 12:00
PROVIDERS: ADMIT Internal Medicine; ATTEND Hospitalist
PROC: 05PY33Z Removal of Infusion Device from Upper Vein, Percutaneous Approach (ICD-10-PCS; principal; 2017-07-09 10:30)
PROC: 05HM33Z Insertion of Infusion Device into Right Internal Jugular Vein, Percutaneous Approach (ICD-10-PCS; principal; 2017-07-09 10:30)
DX: N17.0 Acute kidney failure with tubular necrosis (principal); G93.41 Metabolic encephalopathy; N39.0 Urinary tract infection, site not specified; I10 Essential (primary) hypertension; E87.5 Hyperkalemia; R41.0 Disorientation, unspecified; A49.8 Other bacterial infections of unspecified site; Z87.891 Personal history of nicotine dependence; Z96.649 Presence of unspecified artificial hip joint; Z96.659 Presence of unspecified artificial knee joint; Z83.3 Family history of diabetes mellitus; Z82.49 Family history of ischemic heart disease and other diseases of the circulatory system

== ENCOUNTER → 2017-08-03 | Outpatient (CLI) | payer OTHER ==
[~2017-08-03] MED LIST changes: -BNC20 PO; +CHOL100027 PO; -CLBCRM30 EXT; +METO25TA3 PO; -NAPR1TAB22 PO; -OMG3 PO; +SERT50TA PO; -SULF-183 PO; +TAMS0.4C38 PO
[2017-08-03 12:23] LABS: HEMATOCRIT 37.3 % (37-47); HEMOGLOBIN 11.9 g/dL (12.0-16.0); MEAN CELL VOLUME 89.7 fL (80-100); MEAN CORPUSCULAR HEMOGLOBIN 28.6 pg (25-34); MEAN CORPUSCULAR HGB CONC 31.9 g/dl (32-36); MEAN PLATELET VOLUME 10.1 fL (7.4-10.4); PLATELET COUNT 234 K/uL (130-400); RED CELL DISTRIBUTION WIDTH CV 16.1 % (11.5-14.5); RED CELL DISTRIBUTION WIDTH SD 52.7 fL (36.4-46.3)
[2017-08-03 12:38] LABS: ALBUMIN 3.1 gm/dl (3.4-5.0); BLOOD UREA NITROGEN 28 mg/dl (7-18); CALCIUM 9.1 mg/dl (8.5-10.1); CARBON DIOXIDE 24 mmol/L (21-32); CREATININE 1.47 mg/dl (0.60-1.20); GLUCOSE 105 mg/dl (70-99); POTASSIUM 3.9 mmol/L (3.5-5.1); SODIUM 137 mmol/L (136-145)
[2017-08-03 12:39] LABS: PHOSPHORUS 3.2 mg/dl (2.5-4.9)
== END | disposition home or self-care (01) ==
LOC: C.LAB1850 09:31
PROVIDERS: ATTEND Internal Medicine Nephrology
DX: I10 Essential (primary) hypertension (principal); N28.9 Disorder of kidney and ureter, unspecified

== ENCOUNTER → 2017-09-27 | Outpatient (CLI) | payer OTHER ==
[2017-09-27 15:32] LABS: HEMATOCRIT 37.4 % (37-47); HEMOGLOBIN 12.4 g/dL (12.0-16.0); MEAN CELL VOLUME 86.4 fL (80-100); MEAN CORPUSCULAR HEMOGLOBIN 28.6 pg (25-34); MEAN CORPUSCULAR HGB CONC 33.2 g/dl (32-36); MEAN PLATELET VOLUME 9.8 fL (7.4-10.4); PLATELET COUNT 230 K/uL (130-400); RED CELL DISTRIBUTION WIDTH SD 47.6 fL (36.4-46.3); WHITE BLOOD COUNT 10.02 K/uL (4.8-10.8)
[2017-09-27 15:42] LABS: ALBUMIN 3.4 gm/dl (3.4-5.0); ALT/SGPT 17 U/L (12-78); AST/SGOT 16 U/L (15-37); BLOOD UREA NITROGEN 50 mg/dl (7-18); CALCIUM 9.1 mg/dl (8.5-10.1); CARBON DIOXIDE 21 mmol/L (21-32); CREATININE 1.34 mg/dl (0.60-1.20); GLUCOSE 112 mg/dl (70-99); PHOSPHORUS 3.1 mg/dl (2.5-4.9); POTASSIUM 3.8 mmol/L (3.5-5.1); SODIUM 137 mmol/L (136-145)
[2017-09-28 06:46] LABS: HEMOGLOBIN A1C 5.7 % (4.5-5.6)
== END | disposition home or self-care (01) ==
LOC: C.LAB1850 14:33
PROVIDERS: ATTEND Internal Medicine Nephrology
DX: I12.9 Hypertensive chronic kidney disease with stage 1 through stage 4 chronic kidney disease, or unspecified chronic kidney disease (principal); N35.9 Urethral stricture, unspecified; N18.9 Chronic kidney disease, unspecified; E78.5 Hyperlipidemia, unspecified; R73.09 Other abnormal glucose

== ENCOUNTER → 2017-09-29 | Outpatient (CLI) | payer OTHER | END | disposition home or self-care (01) | LOC: C.LAB1850 10:21 | PROVIDERS: ATTEND Internal Medicine Nephrology | DX: E78.5 Hyperlipidemia, unspecified (principal) ==

== ENCOUNTER → 2017-10-02 | Outpatient (CLI) | payer OTHER ==
--- NOTE | 2017-10-02 15:31 | DIAGNOSTIC IMAGING REPORT ---
ULTRASOUND RIGHT LOWER EXTREMITY VENOUS CLINICAL HISTORY: Right leg pain. COMPARISON STUDY: No priors. TECHNIQUE: Real-time, grayscale, and color Doppler sonography of the deep veins of the right lower extremity was performed from the inguinal crease to the calf. Compression and augmentation were utilized. FINDINGS: There is no sonographic evidence of deep venous thrombosis identified in the right lower extremity. The common femoral, superficial femoral, and popliteal veins are patent and normally compressible. The greater saphenous vein and the profunda femoris vein at the junction with the common femoral vein are clear. The visualized calf veins are patent. No abnormality is identified at the indicated site of concern. IMPRESSION: There is no sonographic evidence of deep venous thrombosis identified in the right lower extremity. Electronically signed by: Uvaldo Reyes M.D. 10/02/2017 3:29 PM Dictated Date/Time: 10/02/2017 3:28 PM
== END | disposition home or self-care (01) ==
LOC: C.ULTR 14:59
PROVIDERS: ATTEND Internal Medicine
DX: M79.604 Pain in right leg (principal)